=== PATIENT | male | born 1985 | race Two or more races ===

== ENCOUNTER 2016-12-23 09:57 | Emergency (ER) | payer OTHER ==
[2016-12-23] MEDS ORDERED: SODIUM CHLORIDE 0.9% 500 ML IV STA (10:31)
[2016-12-23] MEDS ORDERED: ONDANSETRON 4 MG/2 ML VIAL IVP STA (10:31)
[2016-12-23] MEDS ORDERED: DICYCLOMINE 10 MG/ML 2 ML AMP IM STA (10:31)
[2016-12-23] MEDS ORDERED: FAMOTIDINE 20 MG/2 ML VIAL IV STA (10:32)
--- NOTE | 2016-12-23 10:35 | ED ---
General Adult HPI - General Chief complaint: Abdominal Pain Stated complaint: abdominal pain Time Seen by Provider: 12/23/16 10:18 Source: patient, RN notes reviewed Mode of arrival: ambulatory Limitations: no limitations - History of Present Illness Initial comments: Patient is a pleasant 31-year-old male presenting to the emergency department complaining of abdominal discomfort. Onset was this morning. Symptoms feel like his chronic GERD however worse. Patient did have one episode of emesis following eating today. Patient did have 2 other episodes of minimal amount of emesis. Patient has some nausea still. Patient feels slightly constipated. No fever. Discomfort is left upper abdomen. - Related Data Home Medications Medication Instructions Recorded Confirmed Dicyclomine [Bentyl] 10 mg PO TID 12/23/16 12/23/16 Famotidine [Pepcid] 40 mg PO DAILY 12/23/16 12/23/16 Ondansetron Odt [Zofran Odt] 4 mg PO Q8HR PRN 12/23/16 12/23/16 Previous Rx's Medication Instructions Recorded Famotidine [Pepcid] 20 mg PO BID #60 tablet 12/23/16 Allergies Allergy/AdvReac Type Severity Reaction Status Date / Time carbinoxamine maleate Allergy Rash/Hives Verified 12/23/16 10:25 [From [facility]] pseudoephedrine HCl Allergy Rash/Hives Verified 12/23/16 10:25 [From [facility]] Review of Systems ROS Statement: Those systems with pertinent positive or pertinent negative responses have been documented in the HPI. ROS Other: All systems not noted in ROS Statement are negative. Constitutional: Denies: fever, chills Eyes: Denies: eye pain ENT: Denies: ear pain Respiratory: Denies: cough Cardiovascular: Denies: chest pain Endocrine: Denies: fatigue Gastrointestinal: Reports: abdominal pain, nausea, vomiting, constipation. Denies: diarrhea Genitourinary: Denies: dysuria Musculoskeletal: Denies: back pain Skin: Denies: rash Neurological: Denies: weakness Past Medical History Past Medical History: GERD/Reflux, Musculoskeletal Disorder Additional Past Medical History / Comment(s): LT KNEE GIVES OUT AT TIMES- NO SPECIFIC INJURY History of Any Multi-Drug Resistant Organisms: None Reported Past Surgical History: No Surgical Hx Reported Past Anesthesia/Blood Transfusion Reactions: No Reported Reaction Additional Past Anesthesia/Blood Transfusion Reaction / Comment(s): PT HAS NEVER HAD SURGERY Past Psychological History: ADD/ADHD, Anxiety Smoking Status: Current some day smoker Past Alcohol Use History: None Reported Past Drug Use History: Marijuana - Past Family History Mother Family Medical History: Cancer Additional Family Medical History / Comment(s): BREAST,CERVICAL & COLON CA Father Family Medical History: Hypertension Additional Family Medical History / Comment(s): HYDROCEPHALIS,SEIZURE DISORDER, ADRENOLEUKODYSTROPHY General Exam Limitations: no limitations General appearance: alert, in no apparent distress Head exam: Present: atraumatic Eye exam: Present: normal appearance, PERRL ENT exam: Present: normal oropharynx Neck exam: Present: normal inspection Respiratory exam: Present: normal lung sounds bilaterally Cardiovascular Exam: Present: regular rate, normal rhythm Expanded Peripheral pulses: 2+: Dorsalis Pedis (R), Dorsalis Pedis (L) GI/Abdominal exam: Present: soft, tenderness (Mild tenderness epigastric, left upper quadrant), normal bowel sounds. Absent: distended, guarding, rebound, rigid, pulsatile mass Extremities exam: Present: normal inspection. Absent: pedal edema, calf tenderness Neurological exam: Present: alert Psychiatric exam: Present: normal affect, normal mood Skin exam: Present: normal color Course Vital Signs 12/23/16 12/23/16 10:00 11:38 Temperature 97.7 F 97.4 F L Pulse Rate 75 5 L Respiratory 20 18 Rate Blood Pressure 131/77 126/72 O2 Sat by Pulse 99 98 Oximetry Medical Decision Making - Medical Decision Making Patient reevaluated and resting comfortably in bed. Abdomen soft and nontender. Patient is comfortable with discharge home. Patient states he already has Bentyl and Zofran at home for this. Patient states he is out of his Pepcid. - Lab Data Result diagrams: 12/23/16 10:58 12/23/16 10:58 Lab Results 12/23/16 12/23/16 12/23/16 Range/Units 10:30 10:58 10:58 WBC 14.8 H (3.8-10.6) k/uL RBC 5.15 (4.30-5.90) m/uL Hgb 16.1 (13.0-17.5) gm/dL Hct 47.6 (39.0-53.0) % MCV 92.5 (80.0-100.0) fL MCH 31.3 (25.0-35.0) pg MCHC 33.8 (31.0-37.0) g/dL RDW 12.3 (11.5-15.5) % Plt Count 303 (150-450) k/uL Neutrophils % 82 % Lymphocytes % 11 % Monocytes % 5 % Eosinophils % 1 % Basophils % 0 % Neutrophils # 12.1 H (1.3-7.7) k/uL Lymphocytes # 1.6 (1.0-4.8) k/uL Monocytes # 0.8 (0-1.0) k/uL Eosinophils # 0.1 (0-0.7) k/uL Basophils # 0.1 (0-0.2) k/uL PT (9.0-12.0) sec INR (<1.1) APTT (22.0-30.0) sec Sodium 142 (137-145) mmol/L Potassium 4.0 (3.5-5.1) mmol/L Chloride 104 (98-107) mmol/L Carbon Dioxide 28 (22-30) mmol/L Anion Gap 10 mmol/L BUN 8 L (9-20) mg/dL Creatinine 0.88 (0.66-1.25) mg/dL Est GFR (MDRD) Af Amer >60 (>60 ml/min/1.73 sqM) Est GFR (MDRD) Non-Af >60 (>60 ml/min/1.73 sqM) Glucose 118 H (74-99) mg/dL Calcium 9.8 (8.4-10.2) mg/dL Total Bilirubin 0.8 (0.2-1.3) mg/dL AST 24 (17-59) U/L ALT 21 (21-72) U/L Alkaline Phosphatase 79 (38-126) U/L Total Protein 7.5 (6.3-8.2) g/dL Albumin 4.7 (3.5-5.0) g/dL Amylase 44 (30-110) U/L Lipase 55 (23-300) U/L Urine Color Yellow Urine Appearance Clear (Clear) Urine pH 7.0 (5.0-8.0) Ur Specific [place] 1.010 (1.001-1.035) Urine Protein Negative (Negative) Urine Glucose (UA) Negative (Negative) Urine Ketones Negative (Negative) Urine Blood Negative (Negative) Urine Nitrite Negative (Negative) Urine Bilirubin Negative (Negative) Urine Urobilinogen 2.0 (<2.0) mg/dL Ur Leukocyte Esterase Negative (Negative) 12/23/16 Range/Units 10:58 WBC (3.8-10.6) k/uL RBC (4.30-5.90) m/uL Hgb (13.0-17.5) gm/dL Hct (39.0-53.0) % MCV (80.0-100.0) fL MCH (25.0-35.0) pg MCHC (31.0-37.0) g/dL RDW (11.5-15.5) % Plt Count (150-450) k/uL Neutrophils % % Lymphocytes % % Monocytes % % Eosinophils % % Basophils % % Neutrophils # (1.3-7.7) k/uL Lymphocytes # (1.0-4.8) k/uL Monocytes # (0-1.0) k/uL Eosinophils # (0-0.7) k/uL Basophils # (0-0.2) k/uL PT 11.0 (9.0-12.0) sec INR 1.1 (<1.1) APTT 24.9 (22.0-30.0) sec Sodium (137-145) mmol/L Potassium (3.5-5.1) mmol/L Chloride (98-107) mmol/L Carbon Dioxide (22-30) mmol/L Anion Gap mmol/L BUN (9-20) mg/dL Creatinine (0.66-1.25) mg/dL Est GFR (MDRD) Af Amer (>60 ml/min/1.73 sqM) Est GFR (MDRD) Non-Af (>60 ml/min/1.73 sqM) Glucose (74-99) mg/dL Calcium (8.4-10.2) mg/dL Total Bilirubin (0.2-1.3) mg/dL AST (17-59) U/L ALT (21-72) U/L Alkaline Phosphatase (38-126) U/L Total Protein (6.3-8.2) g/dL Albumin (3.5-5.0) g/dL Amylase (30-110) U/L Lipase (23-300) U/L Urine Color Urine Appearance (Clear) Urine pH (5.0-8.0) Ur Specific [place] (1.001-1.035) Urine Protein (Negative) Urine Glucose (UA) (Negative) Urine Ketones (Negative) Urine Blood (Negative) Urine Nitrite (Negative) Urine Bilirubin (Negative) Urine Urobilinogen (<2.0) mg/dL Ur Leukocyte Esterase (Negative) - Radiology Data Radiology results: image reviewed (Abdominal x-ray shows no acute process.) Disposition Clinical Impression: Abdominal pain Disposition: HOME SELF-CARE Condition: Stable Instructions: Abdominal Pain (ED) Additional Instructions: Please follow-up with your doctor in the next day or 2 for recheck. Consider gastroenterology follow-up. Number provided. Return for increased pain, fevers , uncontrolled vomiting, worsening symptoms or other concerns. Prescriptions: Famotidine [Pepcid] 20 mg PO BID #60 tablet Referrals: Emery Trinidad Jr, DO [Primary Care Provider] - 1-2 days Alexander Stephens MD [STAFF PHYSICIAN] - 1-2 days Time of Disposition: 12:33
[2016-12-23 10:48] LABS: Appearance,Urine Clear (Clear); Bilirubin,Urine Negative (Negative); Glucose,Urine (UA) Negative (Negative); Ketones,Urine Negative (Negative); Leukocyte Esterase,Urine Negative (Negative); Nitrite,Urine Negative (Negative); Protein,Urine Negative (Negative); UA Billing (MACRO vs. MICRO) CHEM
[2016-12-23 11:09] LABS: Basophils # (A) 0.1 k/uL (0-0.2); Basophils % (A) 0 %; CH 30.7; CHCM 33.3; Eosinophils # (A) 0.1 k/uL (0-0.7); Eosinophils % (A) 1 %; HCT 47.6 % (39.0-53.0); HDW 2.14; HGB 16.1 gm/dL (13.0-17.5); Luc # (Auto) 0.12; Luc % (Auto) 1; Lymphocytes # (A) 1.6 k/uL (1.0-4.8); Lymphocytes % (A) 11 %; MCH 31.3 pg (25.0-35.0); MCHC 33.8 g/dL (31.0-37.0); MCV 92.5 fL (80.0-100.0); Mean Platelet Volume 6.3; Monocytes # (A) 0.8 k/uL (0-1.0); Monocytes % (A) 5 %; Neutrophils # (A) 12.1 k/uL (1.3-7.7); Neutrophils % (A) 82 %; RBC 5.15 m/uL (4.30-5.90); RDW 12.3 % (11.5-15.5); WBC 14.8 k/uL (3.8-10.6); WBC (Perox) 14.47
[2016-12-23 11:18] LABS: INR 1.1 (<1.1); Partial Thromboplastin Time 24.9 sec (22.0-30.0)
[2016-12-23 11:23] LABS: ALT 21 U/L (21-72); AST 24 U/L (17-59); Alkaline Phosphatase 79 U/L (38-126); Amylase 44 U/L (30-110); Anion Gap 10 mmol/L; Blood Urea Nitrogen 8 mg/dL (9-20); Calcium 9.8 mg/dL (8.4-10.2); Carbon Dioxide 28 mmol/L (22-30); Chloride 104 mmol/L (98-107); Glucose 118 mg/dL (74-99); Non-African American GFR(MDRD) >60 (>60 ml/min/1.73 sqM); Sodium 142 mmol/L (137-145); Total Bilirubin 0.8 mg/dL (0.2-1.3); Total Protein 7.5 g/dL (6.3-8.2)
[2016-12-23 11:40] VITALS: TEMP 97.4
--- NOTE | 2016-12-23 12:08 | XR ---
EXAMINATION TYPE: XR KUB , 2 VIEWS DATE OF EXAM ORDERED: 12/23/2016 HISTORY: abdominal pain. COMPARISON: None. FINDINGS: Lung bases are clear. Within the abdomen, the abdominal gas pattern is within normal limits. There is no evidence of obstru ction or free air. No unusual calcifications are seen. IMPRESSION: NORMAL ABDOMEN.
[2016-12-23 15:48] VITALS: BP 129/71; PULSE 64; RESP 16
== END 2016-12-23 12:45 | disposition home or self-care (01) ==
LOC: EC 09:57
DX: R10.9 Unspecified abdominal pain (principal); R11.2 Nausea with vomiting, unspecified; K59.00 Constipation, unspecified; K21.9 Gastro-esophageal reflux disease without esophagitis; F17.200 Nicotine dependence, unspecified, uncomplicated; Z79.899 Other long term (current) drug therapy; Z88.8 Allergy status to other drugs, medicaments and biological substances
CPT/HCPCS: 36415; 80053; 82150; 83690; 85025; 85610; 85730; 81003; 74000; 99284; 96374; 96375; 96361; 96372; J0500; J2405

== ENCOUNTER 2017-03-08 10:45 | Emergency (ER) | payer OTHER ==
--- NOTE | 2017-03-08 11:42 | ED ---
General Adult HPI - General Chief complaint: Chest Pain Stated complaint: chest pain, Hx pleurisy and anxiety Time Seen by Provider: 03/08/17 11:06 Source: patient, RN notes reviewed Mode of arrival: wheelchair Limitations: no limitations - History of Present Illness Initial comments: 31-year-old male presents emergency department with a chief complaint of chest pain upon coughing. He's had a cough was diagnosed with costochondritis by his doctor a few days ago. Patient states he continues pain and he points to his clavicle area states when he coughs hurts right there. It is tender to touch. Patient denies any fever chills. Patient states when he took his pills today he did have one episode of vomiting. Patient denies any abdominal pain. Patient was concerned due to the fact that he just does not feel like he is getting much better so he thought that he should be seen. Patient denies any recent fever, chills, shortness of breath, back pain, abdominal pain, nausea, numbness or tingling, dysuria or hematuria, constipation or diarrhea, headaches or visual changes, or any other current symptoms. - Related Data Home Medications Medication Instructions Recorded Confirmed Ondansetron Odt [Zofran Odt] 4 mg PO Q8HR PRN 12/23/16 03/08/17 Albuterol Inhaler [Ventolin Hfa 2 puff INHALATION RT-Q6H PRN 03/08/17 03/08/17 Inhaler] Amoxic-Pot Clav 875-125Mg 1 tab PO BID 03/08/17 03/08/17 [Augmentin 875-125] Hyoscyamine Sulfate [Hyoscyamine 0.125 mg SUBLINGUAL DAILY 03/08/17 03/08/17 Sulfate SL] Naproxen Sodium [Anaprox DS] 550 mg PO BID 03/08/17 03/08/17 Previous Rx's Medication Instructions Recorded Famotidine [Pepcid] 20 mg PO BID #60 tablet 12/23/16 Allergies Allergy/AdvReac Type Severity Reaction Status Date / Time carbinoxamine maleate Allergy Rash/Hives Verified 03/08/17 11:34 [From [facility]] pseudoephedrine HCl Allergy Rash/Hives Verified 03/08/17 11:34 [From [facility]] Review of Systems ROS Statement: Those systems with pertinent positive or pertinent negative responses have been documented in the HPI. ROS Other: All systems not noted in ROS Statement are negative. Past Medical History Past Medical History: GERD/Reflux, Musculoskeletal Disorder Additional Past Medical History / Comment(s): LT KNEE GIVES OUT AT TIMES- NO SPECIFIC INJURY History of Any Multi-Drug Resistant Organisms: None Reported Past Surgical History: No Surgical Hx Reported Past Anesthesia/Blood Transfusion Reactions: No Reported Reaction Additional Past Anesthesia/Blood Transfusion Reaction / Comment(s): PT HAS NEVER HAD SURGERY Past Psychological History: ADD/ADHD, Anxiety Smoking Status: Current some day smoker Past Alcohol Use History: None Reported Past Drug Use History: Marijuana - Past Family History Mother Family Medical History: Cancer Additional Family Medical History / Comment(s): BREAST,CERVICAL & COLON CA Father Family Medical History: Hypertension Additional Family Medical History / Comment(s): HYDROCEPHALIS,SEIZURE DISORDER, ADRENOLEUKODYSTROPHY General Exam - General Exam Comments Initial Comments: General: The patient is awake and alert, in no distress, and does not appear acutely ill. Eye: Pupils are equal. Ears, nose, mouth and throat: There are moist mucous membranes and no oral lesions. Neck: The neck is supple, there is no tenderness. Cardiovascular: There is a regular rate and rhythm. No murmur, rub or gallop is appreciated. Respiratory: Lungs are clear to auscultation, respirations are non-labored, breath sounds are equal. No wheezes, stridor, rales, or rhonchi. Patient appears to have tenderness palpation to the upper bilateral chest areas Gastrointestinal: Soft, non-distended, non-tender abdomen without masses or organomegaly noted. There is no rebound or guarding present. No CVA tenderness. Bowel sounds are unremarkable. Back: There is no tenderness to palpation in the midline. There is no obvious deformity. No rashes noted. Musculoskeletal: Normal ROM, no tenderness, There is no pedal edema. There is no calf tenderness or swelling. Sensation intact. Pulses equal bilaterally 2+. Neurological: CN II-XII intact, There are no obvious motor or sensory deficits. Coordination appears grossly intact. Speech is normal. Skin: Skin is warm and dry and no rashes or lesions are noted. Psychiatric: Cooperative, appropriate mood & affect, normal judgment. Limitations: no limitations Course Vital Signs 03/08/17 11:03 Temperature 97.5 F L Pulse Rate 81 Respiratory 18 Rate Blood Pressure 131/76 O2 Sat by Pulse 100 Oximetry EKG Findings - EKG Comments: EKG Findings:: normal sinus rhythm left posterior fascicular block 68 bpm, normal axis, no atopy, no S-T depressions or elevations, Medical Decision Making - Medical Decision Making 31-year-old male presents for appears to be costochondritis along with upper respiratory infection. Patient is here and negative. We discussed continuing the Floxin. We discussed ice to the area. We discussed return precautions and follow-up. Patient stated he understood and is in agreement with plan. All questions have been answered. - Radiology Data Radiology results: report reviewed, image reviewed Disposition Clinical Impression: Costochondral chest pain, Upper respiratory infection Disposition: HOME SELF-CARE Condition: Stable Instructions: Costochondritis (ED) Additional Instructions: Please use medication as discussed. Please follow up with family doctor if symptoms have not improved over the next two days. Please return to the emergency room if your symptoms increase or worsen or for any other concerns. Referrals: Emery Trinidad Jr, DO [Primary Care Provider] - 1-2 days Time of Disposition: 12:17
--- NOTE | 2017-03-08 12:05 | XR ---
EXAMINATION TYPE: XR chest 2V DATE OF EXAM: 03/08/2017 COMPARISON: NONE HISTORY: Chest pain. TECHNIQUE: Frontal and lateral views of the chest are obtained. FINDINGS: There is no focal air space opacity, pleural effusion, or pneumothorax seen. The cardiac silhouette size is within normal limits. The osseous structures are intact. IMPRESSION: No acute process identified.
[2017-03-08 12:33] VITALS: BP 126/76; PULSE 71; RESP 17; TEMP 99
== END 2017-03-08 12:45 | disposition home or self-care (01) ==
LOC: EC 10:45
DX: R07.1 Chest pain on breathing (principal); J06.9 Acute upper respiratory infection, unspecified; R11.10 Vomiting, unspecified; F17.200 Nicotine dependence, unspecified, uncomplicated; Z79.1 Long term (current) use of non-steroidal anti-inflammatories (NSAID); Z79.899 Other long term (current) drug therapy; Z88.8 Allergy status to other drugs, medicaments and biological substances
CPT/HCPCS: 71020; 93005; 99285

== ENCOUNTER → 2017-04-24 | Outpatient (CLI) | payer OTHER ==
--- NOTE | 2017-04-24 14:08 | XR ---
EXAMINATION TYPE: XR scapula LT, XR AC joint BILAT, XR shoulder complete LT DATE OF EXAM: 04/24/2017 CLINICAL HISTORY: Left shoulder pain and scapular pain after fall. TECHNIQUE: Three views of the left shoulder are obtained. COMPARISON: None. FINDINGS: There is no acute fracture/dislocation evident in the left shoulder. The acromioclavicula r and glenohumeral joint spaces appear within normal limits. The visualized ribs are intact and unre markable. Scapular cortical borders are well maintained with no fracture line identified. Visualized ribs are intact with no displaced fracture. No pneumothorax and the visualized left lung apex. IMPRESSION: There is no acute fracture or dislocation in the left shoulder or scapula.
== END | disposition home or self-care (01) ==
LOC: RADXRMAIN 12:29
PROVIDERS: ATTEND Family Medicine
DX: S40.012A Contusion of left shoulder, initial encounter (principal)
CPT/HCPCS: 73050

== ENCOUNTER → 2017-05-16 | Outpatient (CLI) | payer OTHER ==
--- NOTE | 2017-05-16 08:58 | US ---
EXAMINATION TYPE: US abdomen complete DATE OF EXAM: 05/16/2017 COMPARISON: NONE CLINICAL HISTORY: R10.11 RUQ ABD PAIN. RUQ pain EXAM MEASUREMENTS: Liver Length: 16.1 cm Gallbladder Wall: 0.3 cm CBD: 0.4 cm Spleen: 10.0 cm Right Kidney: 11.4 x 4.2 x 5.3 cm Left Kidney: 11.1 x 6.0 x 5.2 cm Pancreas: limited evaluation due to overlying bowel content Liver: wnl Gallbladder: no evidence of stones Evidence for sonographic Azul's sign: no CBD: wnl Spleen: wnl Right Kidney: no evidence of hydronephrosis or mass Left Kidney: no evidence of hydronephrosis or mass Upper IVC: wnl Abd Aorta: wnl The liver is homogenous. The intrahepatic portion of the IVC and proximal abdominal aorta are within normal limits. There is no evidence of cholelithiasis. Common bile duct is unremarkable. The visu alized portions of the pancreas are homogenous. The spleen is unremarkable. Kidneys are symmetric a nd free of hydronephrosis. No renal lesions are seen. IMPRESSION: No distinct abnormality seen.
== END | disposition home or self-care (01) ==
LOC: RADUSWWP 08:05
PROVIDERS: ATTEND Family Medicine
DX: R10.10 Upper abdominal pain, unspecified (principal)
CPT/HCPCS: 76700

== ENCOUNTER 2018-02-03 07:02 | Emergency (ER) | payer OTHER ==
[2018-02-03 07:08] VITALS: BP 139/97; PULSE 68; RESP 18; TEMP 97.7
[2018-02-03] MEDS ORDERED: ONDANSETRON 4 MG TAB PO STA (07:39)
[2018-02-03] MEDS ORDERED: DEXAMETHASONE SOD PHOSPHATE 10 MG/ML 1 ML VIAL IM STA (07:39)
[2018-02-03] MEDS ORDERED: AMOXIC-POT CLAV 875-125MG 1 EACH TAB PO STA (07:39)
--- NOTE | 2018-02-03 07:41 | ED ---
General Adult HPI - General Chief complaint: Recheck/Abnormal Lab/Rx Stated complaint: chest pain, ear pain Time Seen by Provider: 02/03/18 07:12 Source: patient, RN notes reviewed, old records reviewed Mode of arrival: wheelchair Limitations: no limitations - History of Present Illness Initial comments: This is a 32-year-old male the ER for evaluation. Patient presents today for evaluation regarding multiple nonspecific complaints. No known sick contacts no travel history no medical history takes no medications. Patient's clinical left ear. Cough congestion sore throat and occasional shortness of breath, symptoms 3-5 days. No modifying factors for symptoms despite [id number] therapy - Related Data Home Medications Medication Instructions Recorded Confirmed Ondansetron Odt [Zofran Odt] 4 mg PO Q8HR PRN 12/23/16 06/06/17 Hyoscyamine Sulfate [Hyoscyamine 0.125 mg SUBLINGUAL Q4H PRN 03/08/17 06/06/17 Sulfate SL] Famotidine [Pepcid] 20 mg PO DAILY 06/06/17 06/06/17 Previous Rx's Medication Instructions Recorded Amoxicillin 500 mg PO Q8H #30 capsule 06/06/17 Amoxic-Pot Clav 875-125Mg 1 tab PO Q12HR #20 tablet 02/03/18 [Augmentin 875-125] Ondansetron Odt [Zofran ODT] 4 mg PO Q8HR PRN #30 tab 02/03/18 Allergies Allergy/AdvReac Type Severity Reaction Status Date / Time carbinoxamine maleate Allergy Rash/Hives Verified 02/03/18 07:06 [From [facility]] pseudoephedrine HCl Allergy Rash/Hives Verified 02/03/18 07:06 [From [facility]] Review of Systems ROS Statement: Those systems with pertinent positive or pertinent negative responses have been documented in the HPI. ROS Other: All systems not noted in ROS Statement are negative. Past Medical History Past Medical History: GERD/Reflux, Musculoskeletal Disorder Additional Past Medical History / Comment(s): LT KNEE GIVES OUT AT TIMES- NO SPECIFIC INJURY carpel tunnel and ibs History of Any Multi-Drug Resistant Organisms: None Reported Past Surgical History: Hernia Repair, Orthopedic Surgery Additional Past Surgical History / Comment(s): colonscopy pilonial cyst Past Anesthesia/Blood Transfusion Reactions: No Reported Reaction Additional Past Anesthesia/Blood Transfusion Reaction / Comment(s): PT HAS NEVER HAD SURGERY Past Psychological History: ADD/ADHD, Anxiety Smoking Status: Current every day smoker Past Alcohol Use History: None Reported Past Drug Use History: Marijuana - Past Family History Mother Family Medical History: Cancer Additional Family Medical History / Comment(s): BREAST,CERVICAL & COLON CA Father Family Medical History: Hypertension Additional Family Medical History / Comment(s): HYDROCEPHALIS,SEIZURE DISORDER, ADRENOLEUKODYSTROPHY General Exam Limitations: no limitations General appearance: alert, in no apparent distress Head exam: Present: atraumatic, normocephalic, normal inspection Eye exam: Present: normal appearance, PERRL, EOMI. Absent: scleral icterus, conjunctival injection, periorbital swelling ENT exam: Present: normal exam, mucous membranes moist Neck exam: Present: normal inspection. Absent: tenderness, meningismus, lymphadenopathy Respiratory exam: Present: normal lung sounds bilaterally. Absent: respiratory distress, wheezes, rales, rhonchi, stridor Cardiovascular Exam: Present: regular rate, normal rhythm, normal heart sounds. Absent: systolic murmur, diastolic murmur, rubs, gallop, clicks GI/Abdominal exam: Present: soft, normal bowel sounds. Absent: distended, tenderness, guarding, rebound, rigid Extremities exam: Present: normal inspection, full ROM, normal capillary refill. Absent: tenderness, pedal edema, joint swelling, calf tenderness Back exam: Present: normal inspection Neurological exam: Present: alert, oriented X3, CN II-XII intact Psychiatric exam: Present: normal affect, normal mood Skin exam: Present: warm, dry, intact, normal color. Absent: rash Course Vital Signs 02/03/18 07:06 Temperature 97.7 F Pulse Rate 68 Respiratory 18 Rate Blood Pressure 139/97 O2 Sat by Pulse 100 Oximetry Medical Decision Making - Medical Decision Making The 32 male with multiple nonspecific complaints. No organic cause found. Patient will be discharged home URI Disposition Clinical Impression: Upper respiratory infection, Otalgia, left ear, Viral syndrome Disposition: HOME SELF-CARE Condition: Good Instructions: Upper Respiratory Infection (ED), Viral Syndrome (ED) Prescriptions: Amoxic-Pot Clav 875-125Mg [Augmentin 875-125] 1 tab PO Q12HR #20 tablet Ondansetron Odt [Zofran ODT] 4 mg PO Q8HR PRN #30 tab PRN Reason: nausea/vomiting Is patient prescribed a controlled substance at d/c from ED?: No Referrals: Emery Trinidad Jr, [Primary Care Provider] - 1-2 days
== END 2018-02-03 08:01 | disposition home or self-care (01) ==
LOC: EC 07:02
DX: J06.9 Acute upper respiratory infection, unspecified (principal); H92.02 Otalgia, left ear; R06.02 Shortness of breath; K21.9 Gastro-esophageal reflux disease without esophagitis; F17.200 Nicotine dependence, unspecified, uncomplicated; Z88.8 Allergy status to other drugs, medicaments and biological substances; Z79.899 Other long term (current) drug therapy
CPT/HCPCS: 99285; 96372; J1100

== ENCOUNTER → 2018-02-13 | Outpatient (CLI) | payer OTHER ==
--- NOTE | 2018-02-13 15:02 | NM ---
EXAMINATION TYPE: NM hepatobiliary w EF DATE OF EXAM: 02/13/2018 COMPARISON: NONE INDICATION: Right upper quadrant pain TECHNIQUE: After the intravenous administration of 5.43 mCi Tc 99m Mebrofenin hepatobiliary scintigra phy is performed. Images were obtained immediately post injection. FINDINGS: There is prompt uptake and excretion of radiotracer by the liver. Extrahepatic ducts are identified at 5 minutes. The gallbladder is visualized within 5 minutes. Small bowel activity is noted within 35 minutes. At one hour 8 ounces of oral ensure plus is given to mimic CCK and gallbladder ejection fraction is c alculated at 70 %, which is in the normal range. (Normal >35% and <80%.). IMPRESSION: 1. Normal hepatobiliary scan
== END | disposition home or self-care (01) ==
LOC: RADNMMAIN 12:36
PROVIDERS: ATTEND Family Medicine
DX: R10.11 Right upper quadrant pain (principal); R11.0 Nausea; Z88.8 Allergy status to other drugs, medicaments and biological substances
CPT/HCPCS: 78226; A9537

== ENCOUNTER 2018-04-09 09:17 | Emergency (ER) | payer OTHER ==
[2018-04-09 09:31] VITALS: TEMP 98.5
[2018-04-09] MEDS ORDERED: SODIUM CHLORIDE 0.9% 1,000 ML IV STA (10:09)
[2018-04-09] MEDS ORDERED: KETOROLAC 30 MG/ML 1 ML VIAL IVP STA (10:09)
--- NOTE | 2018-04-09 10:14 | ED ---
General Adult HPI - General Chief complaint: Chest Pain Stated complaint: chest/abd pain Time Seen by Provider: 04/09/18 09:57 Source: patient, RN notes reviewed Mode of arrival: ambulatory Limitations: no limitations - History of Present Illness Initial comments: Patient is a 32-year-old male presented to the emergency room today with multiple complaints. Patient has not to chest pain and some radiation to the left hand over the last 3 days. Patient states that he is having some numbness tingling sensation back of the left biceps and down to the hand. Patient does admit has pain to the left side of the chest wall that comes and goes. He denies specifically makes it worse. He has not that he's had some cough congestion at times her cough and has been worse. Patient denies any sputum production. He does admit that his had a sore throat. Also missed some right- sided abdominal pain. He admits to nausea and vomiting. He takes Zofran this morning which made him feel better. Patient denies any other complaints. Patient denies any recent shortness of breath, back pain, numbness or tingling , dysuria or hematuria, constipation or diarrhea, headaches or visual changes, or any other complaints. - Related Data Home Medications Medication Instructions Recorded Confirmed Bentyl (Unknown Dose) 1 tab PO TID 04/09/18 04/09/18 Naproxen Sodium [Aleve] 220 mg PO BID PRN 04/09/18 04/09/18 Ondansetron HCl [Zofran] 8 mg PO Q8H PRN 04/09/18 04/09/18 Phenylephrine/Dm/Acetaminop/GG 2 tab PO Q6HR PRN 04/09/18 04/09/18 [Tylenol Cold-Flu Severe Caplet] Previous Rx's Medication Instructions Recorded Benzonatate [Tessalon Perles] 100 mg PO TID PRN #20 capsule 04/09/18 Ibuprofen [Motrin] 600 mg PO Q6HR PRN #40 day 04/09/18 Allergies Allergy/AdvReac Type Severity Reaction Status Date / Time amoxicillin [From Augmentin] Allergy Unknown Verified 04/09/18 09:55 carbinoxamine maleate Allergy Rash/Hives Verified 04/09/18 09:55 [From Rondec] clavulanic acid Allergy Unknown Verified 04/09/18 09:55 [From Augmentin] pseudoephedrine HCl Allergy Rash/Hives Verified 04/09/18 09:55 [From Rondec] Review of Systems ROS Statement: Those systems with pertinent positive or pertinent negative responses have been documented in the HPI. ROS Other: All systems not noted in ROS Statement are negative. Past Medical History Past Medical History: GERD/Reflux, Musculoskeletal Disorder Additional Past Medical History / Comment(s): LT KNEE GIVES OUT AT TIMES- NO SPECIFIC INJURY carpel tunnel and ibs History of Any Multi-Drug Resistant Organisms: None Reported Past Surgical History: Hernia Repair, Orthopedic Surgery Additional Past Surgical History / Comment(s): colonscopy pilonial cyst Past Anesthesia/Blood Transfusion Reactions: No Reported Reaction Additional Past Anesthesia/Blood Transfusion Reaction / Comment(s): PT HAS NEVER HAD SURGERY Past Psychological History: ADD/ADHD, Anxiety Smoking Status: Current every day smoker Past Alcohol Use History: None Reported Past Drug Use History: Marijuana - Past Family History Mother Family Medical History: Cancer Additional Family Medical History / Comment(s): BREAST,CERVICAL & COLON CA Father Family Medical History: Hypertension Additional Family Medical History / Comment(s): HYDROCEPHALIS,SEIZURE DISORDER, ADRENOLEUKODYSTROPHY General Exam - General Exam Comments Initial Comments: General: The patient is awake and alert, in no distress, and does not appear acutely ill. Eye: Pupils are equal, round and reactive to light. Extra-ocular movements are intact. No nystagmus. There is normal conjunctiva bilaterally. No signs of icterus. Ears, nose, mouth and throat: There are moist mucous membranes and no oral lesions. Neck: The neck is supple, there is no tenderness or JVD. Cardiovascular: There is a regular rate and rhythm. No murmur, rub or gallop is appreciated. Respiratory: Lungs are clear to auscultation, respirations are non-labored, breath sounds are equal. No wheezes, stridor, rales, or rhonchi. Gastrointestinal: Abdomen soft on palpation. Patient does have mild tenderness right upper quadrant. No rebound, guarding or CVA tenderness. Musculoskeletal: Normal ROM, no tenderness. Sensation intact. Strength 5/5. Pulses equal bilaterally 2+. Neurological: A&O x 3. CN II-XII intact, There are no obvious motor or sensory deficits. Coordination appears grossly intact. Speech is normal. Skin: Skin is warm and dry and no rashes or lesions are noted. Psychiatric: Cooperative, appropriate mood & affect, normal judgment. Limitations: no limitations Course Vital Signs 04/09/18 09:25 Temperature 98.5 F Pulse Rate 68 Respiratory 18 Rate Blood Pressure 146/90 O2 Sat by Pulse 98 Oximetry EKG Findings - EKG Comments: EKG Findings:: EKG performed at 0941: Shows normal sinus rhythm at 79 beats per minute. [place] interval 146. QRS 86. QT/QTc is 396/454. No acute ST changes. Medical Decision Making - Medical Decision Making Patient reexamined at this time shows no signs of distress. He does admit to improvement after Toradol here in emergency room. He says x-rays unremarkable. Patient's labs been reviewed. EKG shows normal sinus rhythm. Patient has had cough congestion that she felt to be the cause for his chest pain as it is worse when he coughs. Patient at this time is advised to follow-up family doctor the next 2 days return to emergency room symptoms increase or worsen. Advised continue anti-inflammatories. Also be given Tessalon Perles for his cough. - Lab Data Result diagrams: 04/09/18 09:45 04/09/18 09:45 Lab Results 04/09/18 04/09/18 04/09/18 Range/Units 09:45 09:45 09:45 WBC 12.1 H (3.8-10.6) k/uL RBC 5.25 (4.30-5.90) m/uL Hgb 16.0 (13.0-17.5) gm/dL Hct 49.3 (39.0-53.0) % MCV 93.9 (80.0-100.0) fL MCH 30.5 (25.0-35.0) pg MCHC 32.5 (31.0-37.0) g/dL RDW 12.7 (11.5-15.5) % Plt Count 341 (150-450) k/uL Neutrophils % 77 % Lymphocytes % 16 % Monocytes % 5 % Eosinophils % 1 % Basophils % 1 % Neutrophils # 9.3 H (1.3-7.7) k/uL Lymphocytes # 1.9 (1.0-4.8) k/uL Monocytes # 0.6 (0-1.0) k/uL Eosinophils # 0.1 (0-0.7) k/uL Basophils # 0.1 (0-0.2) k/uL Sodium 141 (137-145) mmol/L Potassium 4.2 (3.5-5.1) mmol/L Chloride 108 H (98-107) mmol/L Carbon Dioxide 25 (22-30) mmol/L Anion Gap 8 mmol/L BUN 7 L (9-20) mg/dL Creatinine 0.82 (0.66-1.25) mg/dL Est GFR (CKD-EPI)AfAm >90 (>60 ml/min/1.73 sqM) Est GFR (CKD-EPI)NonAf >90 (>60 ml/min/1.73 sqM) Glucose 105 H (74-99) mg/dL Calcium 9.4 (8.4-10.2) mg/dL Total Bilirubin 0.4 (0.2-1.3) mg/dL AST 35 (17-59) U/L ALT 40 (21-72) U/L Alkaline Phosphatase 64 (38-126) U/L Total Creatine Kinase 71 (55-170) U/L CK-MB (CK-2) 0.3 (0.0-2.4) ng/mL CK-MB (CK-2) Rel Index 0.4 Troponin I <0.012 (0.000-0.034) ng/mL Total Protein 7.2 (6.3-8.2) g/dL Albumin 4.4 (3.5-5.0) g/dL Amylase 59 (30-110) U/L Lipase 63 (23-300) U/L Urine Color Urine Appearance (Clear) Urine pH (5.0-8.0) Ur Specific [place] (1.001-1.035) Urine Protein (Negative) Urine Glucose (UA) (Negative) Urine Ketones (Negative) Urine Blood (Negative) Urine Nitrite (Negative) Urine Bilirubin (Negative) Urine Urobilinogen (<2.0) mg/dL Ur Leukocyte Esterase (Negative) Heterophile Antibody (Negative) Group A Strep Rapid (Negative) 04/09/18 04/09/18 04/09/18 Range/Units 09:45 12:10 12:11 WBC (3.8-10.6) k/uL RBC (4.30-5.90) m/uL Hgb (13.0-17.5) gm/dL Hct (39.0-53.0) % MCV (80.0-100.0) fL MCH (25.0-35.0) pg MCHC (31.0-37.0) g/dL RDW (11.5-15.5) % Plt Count (150-450) k/uL Neutrophils % % Lymphocytes % % Monocytes % % Eosinophils % % Basophils % % Neutrophils # (1.3-7.7) k/uL Lymphocytes # (1.0-4.8) k/uL Monocytes # (0-1.0) k/uL Eosinophils # (0-0.7) k/uL Basophils # (0-0.2) k/uL Sodium (137-145) mmol/L Potassium (3.5-5.1) mmol/L Chloride (98-107) mmol/L Carbon Dioxide (22-30) mmol/L Anion Gap mmol/L BUN (9-20) mg/dL Creatinine (0.66-1.25) mg/dL Est GFR (CKD-EPI)AfAm (>60 ml/min/1.73 sqM) Est GFR (CKD-EPI)NonAf (>60 ml/min/1.73 sqM) Glucose (74-99) mg/dL Calcium (8.4-10.2) mg/dL Total Bilirubin (0.2-1.3) mg/dL AST (17-59) U/L ALT (21-72) U/L Alkaline Phosphatase (38-126) U/L Total Creatine Kinase (55-170) U/L CK-MB (CK-2) (0.0-2.4) ng/mL CK-MB (CK-2) Rel Index Troponin I (0.000-0.034) ng/mL Total Protein (6.3-8.2) g/dL Albumin (3.5-5.0) g/dL Amylase (30-110) U/L Lipase (23-300) U/L Urine Color Light Yellow Urine Appearance Clear (Clear) Urine pH 7.5 (5.0-8.0) Ur Specific [place] 1.003 (1.001-1.035) Urine Protein Negative (Negative) Urine Glucose (UA) Negative (Negative) Urine Ketones Negative (Negative) Urine Blood Negative (Negative) Urine Nitrite Negative (Negative) Urine Bilirubin Negative (Negative) Urine Urobilinogen <2.0 (<2.0) mg/dL Ur Leukocyte Esterase Negative (Negative) Heterophile Antibody Negative (Negative) Group A Strep Rapid Negative (Negative) Disposition Clinical Impression: Upper respiratory infection, Chest pain Disposition: HOME SELF-CARE Condition: Good Instructions: Costochondritis (ED) Additional Instructions: Please use medication as discussed. Please follow-up with family doctor in the next 2 days of symptoms have not improved. Please return to emergency room if the symptoms increase or worsen or for any other concerns. Prescriptions: Benzonatate [Tessalon Perles] 100 mg PO TID PRN #20 capsule PRN Reason: Cough Ibuprofen [Motrin] 600 mg PO Q6HR PRN #40 day PRN Reason: Pain Is patient prescribed a controlled substance at d/c from ED?: No Referrals: Emery Trinidad Jr, DO [Primary Care Provider] - 1-2 days Time of Disposition: 13:19
--- NOTE | 2018-04-09 10:34 | XR ---
EXAMINATION TYPE: XR KUB DATE OF EXAM: 04/09/2018 COMPARISON: 12/23/2016 HISTORY: Pain TECHNIQUE: One view abdominal series FINDINGS: The osseous structures are intact. The bowel gas pattern is nonspecific. Lung bases are clear. Spin a bifida occulta lumbosacral junction. IMPRESSION: 1. Nonspecific abdomen.
[2018-04-09 10:37] LABS: Basophils # (A) 0.1 k/uL (0-0.2); Basophils % (A) 1 %; Eosinophils # (A) 0.1 k/uL (0-0.7); Eosinophils % (A) 1 %; HCT 49.3 % (39.0-53.0); Lymphocytes # (A) 1.9 k/uL (1.0-4.8); Lymphocytes % (A) 16 %; MCH 30.5 pg (25.0-35.0); MCHC 32.5 g/dL (31.0-37.0); MCV 93.9 fL (80.0-100.0); Mean Platelet Volume 6.4; Monocytes # (A) 0.6 k/uL (0-1.0); Monocytes % (A) 5 %; Neutrophils # (A) 9.3 k/uL (1.3-7.7); Neutrophils % (A) 77 %; Platelet Count 341 k/uL (150-450); RBC 5.25 m/uL (4.30-5.90); RDW 12.7 % (11.5-15.5); WBC 12.1 k/uL (3.8-10.6)
--- NOTE | 2018-04-09 10:37 | XR ---
EXAMINATION TYPE: XR chest 2V DATE OF EXAM: 04/09/2018 COMPARISON: 06/06/2017 HISTORY: Chest pain TECHNIQUE: Frontal and lateral views of the chest are obtained. FINDINGS: There is no focal air space opacity, pleural effusion, or pneumothorax seen. The cardiac silhouette size is within normal limits. The osseous structures are intact. IMPRESSION: No acute cardiopulmonary process.
[2018-04-09 10:49] LABS: ALT 40 U/L (21-72); AST 35 U/L (17-59); Albumin 4.4 g/dL (3.5-5.0); Alkaline Phosphatase 64 U/L (38-126); Amylase 59 U/L (30-110); Anion Gap 8 mmol/L; Blood Urea Nitrogen 7 mg/dL (9-20); Calcium 9.4 mg/dL (8.4-10.2); Carbon Dioxide 25 mmol/L (22-30); Chloride 108 mmol/L (98-107); Glucose 105 mg/dL (74-99); Lipase 63 U/L (23-300); Potassium 4.2 mmol/L (3.5-5.1); Sodium 141 mmol/L (137-145); Total Bilirubin 0.4 mg/dL (0.2-1.3); Total Protein 7.2 g/dL (6.3-8.2)
[2018-04-09 11:05] LABS: Creatine Kinase 71 U/L (55-170)
[2018-04-09 11:18] LABS: Creatine Kinase MB 0.3 ng/mL (0.0-2.4); Troponin I <0.012 ng/mL (0.000-0.034)
[2018-04-09 12:33] LABS: Appearance,Urine Clear (Clear); Bilirubin,Urine Negative (Negative); Blood,Urine Negative (Negative); Color,Urine Light Yellow; Glucose,Urine (UA) Negative (Negative); Ketones,Urine Negative (Negative); Leukocyte Esterase,Urine Negative (Negative); Nitrite,Urine Negative (Negative); PH, Urine 7.5 (5.0-8.0); Protein,Urine Negative (Negative); Specific Gravity,Urine 1.003 (1.001-1.035); Urobilinogen,Urine <2.0 mg/dL (<2.0)
[2018-04-09 13:47] VITALS: BP 145/93; PULSE 75; RESP 8
== END 2018-04-09 13:28 | disposition home or self-care (01) ==
LOC: EC 09:17
DX: J06.9 Acute upper respiratory infection, unspecified (principal); R07.89 Other chest pain; R10.9 Unspecified abdominal pain; R11.2 Nausea with vomiting, unspecified; K21.9 Gastro-esophageal reflux disease without esophagitis; F17.200 Nicotine dependence, unspecified, uncomplicated; Z79.899 Other long term (current) drug therapy; Z88.0 Allergy status to penicillin; Z88.8 Allergy status to other drugs, medicaments and biological substances
CPT/HCPCS: 36415; 93005; 80053; 82150; 82550; 82553; 83690; 84484; 85025; 86308; 81003; 87081; 87430; 71046; 74018; 99285; 96374; 96361; J1885

== ENCOUNTER 2018-05-09 06:51 | Emergency (ER) | payer OTHER ==
[2018-05-09] MEDS ORDERED: SODIUM CHLORIDE 0.9% 500 ML 500 ML IV STA (07:40)
[2018-05-09] MEDS ORDERED: ONDANSETRON 4 MG/2 ML VIAL IVP STA (07:40)
[2018-05-09] MEDS ORDERED: KETOROLAC 30 MG/ML 1 ML VIAL IVP STA (07:40)
--- NOTE | 2018-05-09 07:45 | ED ---
General Adult HPI - General Chief complaint: Abdominal Pain Stated complaint: Abd/Back Pain Time Seen by Provider: 05/09/18 07:00 Source: patient, RN notes reviewed Mode of arrival: ambulatory Limitations: no limitations - History of Present Illness Initial comments: This is a 32-year-old male who presents emergency Department complaining of right-sided abdominal pain. Patient states his been ongoing for 2 years. Patient states he has had multiple workup was at different ERs and has been scoped from the top and the bottom. Patient states over the last month his pain is been constant and is mostly in the right flank in a little bit in the right upper quadrant. Patient states this morning however the pain got much worse she was vomiting and could not handle the pain so decided come back to emergency department. Patient has ever been to this emergency Department before but he has been to [facility] and they came around. Patient denies any fever chills. Patient denies any dysuria hematuria urinary frequency. Patient states he has a little bit of CVA tenderness on the right. Patient denies any chest pain difficult breathing shortest breath per patient denies any recent fever. Patient denies any diarrhea. - Related Data Home Medications Medication Instructions Recorded Confirmed Naproxen Sodium [Aleve] 440 mg PO BID PRN 04/09/18 05/09/18 Ondansetron HCl [Zofran] 8 mg PO Q8H PRN 04/09/18 05/09/18 Acetaminophen [Tylenol Arthritis] 650 mg PO Q12H PRN 05/09/18 05/09/18 Hyoscyamine Sulfate [Hyoscyamine 0.125 mg SL Q4H PRN 05/09/18 05/09/18 Sulfate SL] Previous Rx's Medication Instructions Recorded Ibuprofen [Motrin] 600 mg PO Q6HR PRN #20 tab 05/09/18 Allergies Allergy/AdvReac Type Severity Reaction Status Date / Time amoxicillin [From Augmentin] Allergy Unknown Verified 05/09/18 08:25 carbinoxamine maleate Allergy Rash/Hives Verified 05/09/18 08:25 [From Rondec] clavulanic acid Allergy Unknown Verified 05/09/18 08:25 [From Augmentin] pseudoephedrine HCl Allergy Rash/Hives Verified 05/09/18 08:25 [From Rondec] Review of Systems ROS Statement: Those systems with pertinent positive or pertinent negative responses have been documented in the HPI. ROS Other: All systems not noted in ROS Statement are negative. Past Medical History Past Medical History: GERD/Reflux, Musculoskeletal Disorder Additional Past Medical History / Comment(s): LT KNEE GIVES OUT AT TIMES- NO SPECIFIC INJURY carpel tunnel and ibs History of Any Multi-Drug Resistant Organisms: None Reported Past Surgical History: Hernia Repair, Orthopedic Surgery Additional Past Surgical History / Comment(s): colonscopy pilonial cyst Past Anesthesia/Blood Transfusion Reactions: No Reported Reaction Additional Past Anesthesia/Blood Transfusion Reaction / Comment(s): PT HAS NEVER HAD SURGERY Past Psychological History: ADD/ADHD, Anxiety Smoking Status: Current every day smoker Past Alcohol Use History: None Reported Past Drug Use History: Marijuana - Past Family History Mother Family Medical History: Cancer Additional Family Medical History / Comment(s): BREAST,CERVICAL & COLON CA Father Family Medical History: Hypertension Additional Family Medical History / Comment(s): HYDROCEPHALIS,SEIZURE DISORDER, ADRENOLEUKODYSTROPHY General Exam - General Exam Comments Initial Comments: GENERAL: Patient is well-developed and well-nourished. Patient is nontoxic and well- hydrated and is in mild distress. ENT: Neck is soft and supple. No significant lymphadenopathy is noted. Oropharynx is clear. Moist mucous membranes. Neck has full range of motion without eliciting any pain. EYES: The sclera were anicteric and conjunctiva were pink and moist. Extraocular movements were intact and pupils were equal round and reactive to light. Eyelids were unremarkable. PULMONARY: Unlabored respirations. Good breath sounds bilaterally. No audible rales rhonchi or wheezing was noted. CARDIOVASCULAR: There is a regular rate and rhythm without any murmurs gallops or rubs. ABDOMEN: Patient has abdominal pain and right upper quadrant to right flank area. Patient has some mild right CVA tenderness. Patient has no rebound or guarding No palpable organomegaly was noted. There is no palpable pulsatile mass. SKIN: Skin is clear with no lesions or rashes and otherwise unremarkable. NEUROLOGIC: Patient is alert and oriented x3. Cranial nerves II through XII are grossly intact. Motor and sensory are also intact. Normal speech, volume and content. Symmetrical smile. MUSCULOSKELETAL: Normal extremities with adequate strength and full range of motion. No lower extremity swelling or edema. No calf tenderness. LYMPHATICS: No significant lymphadenopathy is noted PSYCHIATRIC: Normal psychiatric evaluation. Limitations: no limitations Course Vital Signs 05/09/18 07:02 Temperature 98 F Pulse Rate 76 Respiratory 16 Rate Blood Pressure 143/82 O2 Sat by Pulse 100 Oximetry Medical Decision Making - Medical Decision Making Computed tomography scan abdomen and pelvis showed colitis in the descending colon. I will begin to reevaluate the patient patient stated the pain was mostly on the right side and it was better than it was earlier but he is noting now that movement is making it worse sitting up twisting or bending over makes the pain worse. Patient states he thinks it might be related to the fact that he was chopping wood last 2 days he may have strained side of his body which I think a prior to arrival. Patient is no longer nauseous. - Lab Data Result diagrams: 05/09/18 07:55 05/09/18 07:55 Lab Results 05/09/18 05/09/18 Range/Units 07:55 07:55 WBC 12.9 H (3.8-10.6) k/uL RBC 5.14 (4.30-5.90) m/uL Hgb 15.9 (13.0-17.5) gm/dL Hct 48.0 (39.0-53.0) % MCV 93.3 (80.0-100.0) fL MCH 31.0 (25.0-35.0) pg MCHC 33.2 (31.0-37.0) g/dL RDW 12.9 (11.5-15.5) % Plt Count 305 (150-450) k/uL Neutrophils % 77 % Lymphocytes % 14 % Monocytes % 6 % Eosinophils % 2 % Basophils % 1 % Neutrophils # 10.0 H (1.3-7.7) k/uL Lymphocytes # 1.8 (1.0-4.8) k/uL Monocytes # 0.8 (0-1.0) k/uL Eosinophils # 0.2 (0-0.7) k/uL Basophils # 0.1 (0-0.2) k/uL Sodium 141 (137-145) mmol/L Potassium 4.2 (3.5-5.1) mmol/L Chloride 107 (98-107) mmol/L Carbon Dioxide 28 (22-30) mmol/L Anion Gap 6 mmol/L BUN 7 L (9-20) mg/dL Creatinine 0.90 (0.66-1.25) mg/dL Est GFR (CKD-EPI)AfAm >90 (>60 ml/min/1.73 sqM) Est GFR (CKD-EPI)NonAf >90 (>60 ml/min/1.73 sqM) Glucose 104 H (74-99) mg/dL Calcium 9.5 (8.4-10.2) mg/dL Total Bilirubin 0.4 (0.2-1.3) mg/dL AST 25 (17-59) U/L ALT 32 (21-72) U/L Alkaline Phosphatase 72 (38-126) U/L Total Protein 6.7 (6.3-8.2) g/dL Albumin 3.9 (3.5-5.0) g/dL Amylase 56 (30-110) U/L Lipase 97 (23-300) U/L Disposition Clinical Impression: Abdominal muscle strain, Colitis, Acute vomiting Disposition: HOME SELF-CARE Condition: Good Instructions: Colitis (ED) Prescriptions: Ibuprofen [Motrin] 600 mg PO Q6HR PRN #20 tab PRN Reason: For pain Is patient prescribed a controlled substance at d/c from ED?: No Referrals: Emery Trinidad Jr, [Primary Care Provider] - 1-2 days Time of Disposition: 10:28
[2018-05-09 08:23] LABS: Basophils # (A) 0.1 k/uL (0-0.2); Basophils % (A) 1 %; Eosinophils # (A) 0.2 k/uL (0-0.7); Eosinophils % (A) 2 %; HGB 15.9 gm/dL (13.0-17.5); Lymphocytes # (A) 1.8 k/uL (1.0-4.8); Lymphocytes % (A) 14 %; MCHC 33.2 g/dL (31.0-37.0); MCV 93.3 fL (80.0-100.0); Mean Platelet Volume 6.3; Monocytes # (A) 0.8 k/uL (0-1.0); Monocytes % (A) 6 %; Neutrophils % (A) 77 %; Platelet Count 305 k/uL (150-450); RBC 5.14 m/uL (4.30-5.90); RDW 12.9 % (11.5-15.5); WBC 12.9 k/uL (3.8-10.6)
[2018-05-09 08:40] LABS: ALT 32 U/L (21-72); AST 25 U/L (17-59); Albumin 3.9 g/dL (3.5-5.0); Alkaline Phosphatase 72 U/L (38-126); Amylase 56 U/L (30-110); Anion Gap 6 mmol/L; Blood Urea Nitrogen 7 mg/dL (9-20); Calcium 9.5 mg/dL (8.4-10.2); Carbon Dioxide 28 mmol/L (22-30); Chloride 107 mmol/L (98-107); Glucose 104 mg/dL (74-99); Lipase 97 U/L (23-300); Potassium 4.2 mmol/L (3.5-5.1); Sodium 141 mmol/L (137-145); Total Bilirubin 0.4 mg/dL (0.2-1.3); Total Protein 6.7 g/dL (6.3-8.2)
--- NOTE | 2018-05-09 09:58 | CT ---
EXAMINATION TYPE: CT abdomen pelvis w con DATE OF EXAM: 05/09/2018 COMPARISON: None INDICATION: Abdominal pain DLP: 1095.10 mGycm, Automated exposure control for dose reduction was used. CONTRAST: 100 ml mL of Isovue 300. Study performed with Oral Contrast TECHNIQUE: Axial images were obtained from above the diaphragm to the pubic rami in the axial plane a t 5 mm thick sections. Reconstructed images are reviewed on the computer in the coronal plane. FINDINGS: Limited CT sections are obtained the lung bases. The lung bases are clear. CT ABDOMEN: Liver: Normal Spleen: Normal Pancreas: Normal Adrenal glands: The adrenal glands are normal. Gallbladder: Normal Kidneys: No masses are evident. No hydronephrosis is present. No cysts are present. Delayed images were obtained through the kidneys, which remain unremarkable. Aorta: Normal Inferior vena cava: Normal. CT PELVIS: Loops of bowel within the upper abdomen are unremarkable. The distal descending colon and sigmoid col on is diffusely thickened without significant adjacent inflammatory changes. Correlate for colitis. T here are scattered diverticuli within the sigmoid colon without acute diverticulitis. Studies perform ed without oral contrast limiting bowel evaluation. Appendix: Normal as visualized. Urinary bladder: Normal. Genitourinary structures: Prostate is normal. Osseous structures: No suspicious lytic or sclerotic lesions. IMPRESSIONS: 1. Appears to be a mild colitis through the distal descending colon and sigmoid colon. 2. Diverticulosis without acute diverticulitis within the sigmoid colon.
[2018-05-09 10:55] LABS: Appearance,Urine Clear (Clear); Bilirubin,Urine Negative (Negative); Blood,Urine Negative (Negative); Color,Urine Light Yellow; Glucose,Urine (UA) Negative (Negative); Ketones,Urine Negative (Negative); Leukocyte Esterase,Urine Negative (Negative); Nitrite,Urine Negative (Negative); PH, Urine 7.5 (5.0-8.0); Protein,Urine Negative (Negative); Specific Gravity,Urine 1.019 (1.001-1.035); Urobilinogen,Urine <2.0 mg/dL (<2.0)
[2018-05-09 11:09] VITALS: BP 132/77; PULSE 74; RESP 20; TEMP 98
== END 2018-05-09 11:09 | disposition home or self-care (01) ==
LOC: EC 06:51
DX: K52.9 Noninfective gastroenteritis and colitis, unspecified (principal); S39.011A Strain of muscle, fascia and tendon of abdomen, initial encounter; R11.10 Vomiting, unspecified; F17.200 Nicotine dependence, unspecified, uncomplicated; Z88.0 Allergy status to penicillin; Z88.8 Allergy status to other drugs, medicaments and biological substances; Z80.0 Family history of malignant neoplasm of digestive organs; X58.XXXA Exposure to other specified factors, initial encounter
CPT/HCPCS: 36415; 80053; 82150; 83690; 85025; 81003; 74177; 99284; 96374; 96375; J2405; J1885; Q9967

== ENCOUNTER 2018-05-20 04:17 | Emergency (ER) | payer OTHER ==
[2018-05-20 04:23] VITALS: TEMP 97.6
[2018-05-20 05:19] LABS: Basophils # (A) 0.1 k/uL (0-0.2); Basophils % (A) 1 %; Eosinophils # (A) 0.3 k/uL (0-0.7); Eosinophils % (A) 3 %; HCT 47.9 % (39.0-53.0); HGB 15.5 gm/dL (13.0-17.5); Lymphocytes # (A) 2.4 k/uL (1.0-4.8); Lymphocytes % (A) 24 %; MCH 29.9 pg (25.0-35.0); MCHC 32.3 g/dL (31.0-37.0); MCV 92.4 fL (80.0-100.0); Mean Platelet Volume 6.5; Monocytes # (A) 0.7 k/uL (0-1.0); Monocytes % (A) 7 %; Neutrophils # (A) 6.6 k/uL (1.3-7.7); Neutrophils % (A) 64 %; Platelet Count 316 k/uL (150-450); RBC 5.18 m/uL (4.30-5.90); RDW 12.8 % (11.5-15.5); WBC 10.3 k/uL (3.8-10.6)
[2018-05-20 05:23] LABS: ALT 36 U/L (21-72); AST 34 U/L (17-59); Albumin 4.2 g/dL (3.5-5.0); Alkaline Phosphatase 68 U/L (38-126); Amylase 50 U/L (30-110); Anion Gap 7 mmol/L; Blood Urea Nitrogen 7 mg/dL (9-20); Calcium 9.5 mg/dL (8.4-10.2); Carbon Dioxide 25 mmol/L (22-30); Chloride 108 mmol/L (98-107); Glucose 105 mg/dL (74-99); Lipase 81 U/L (23-300); Potassium 4.3 mmol/L (3.5-5.1); Sodium 140 mmol/L (137-145); Total Bilirubin 0.7 mg/dL (0.2-1.3); Total Protein 6.8 g/dL (6.3-8.2)
[2018-05-20] MEDS ORDERED: ONDANSETRON 4 MG/2 ML VIAL IVP STA (05:48)
[2018-05-20] MEDS ORDERED: MORPHINE SULFATE 4 MG/ML SYRINGE IV STA (06:04)
--- NOTE | 2018-05-20 06:12 | ED ---
Abdominal Pain HPI - General Chief Complaint: Nausea/Vomiting/Diarrhea Stated Complaint: Abdominal Pain Time Seen by Provider: 05/20/18 05:48 Source: patient Mode of arrival: ambulatory Limitations: no limitations - History of Present Illness MD Complaint: abdominal pain Onset/Timin -: hour(s) Location: RLQ Radiation: none Migration to: no migration Severity: severe Quality: sharp Consistency: constant Improves With: nothing Worsens With: nothing - Related Data Home Medications Medication Instructions Recorded Confirmed Ondansetron HCl [Zofran] 8 mg PO Q8H PRN 04/09/18 05/20/18 Acetaminophen [Tylenol Arthritis] 650 mg PO Q12H PRN 05/09/18 05/20/18 Hyoscyamine Sulfate [Hyoscyamine 0.125 mg SL Q4H PRN 05/09/18 05/20/18 Sulfate SL] Previous Rx's Medication Instructions Recorded Dicyclomine [Bentyl] 20 mg PO QID #15 tablet 05/20/18 Ondansetron Odt [Zofran ODT] 4 mg PO Q8HR PRN #10 tab 05/20/18 Allergies Allergy/AdvReac Type Severity Reaction Status Date / Time amoxicillin [From Augmentin] Allergy Unknown Verified 05/20/18 04:24 carbinoxamine maleate Allergy Rash/Hives Verified 05/20/18 04:24 [From Rondec] clavulanic acid Allergy Unknown Verified 05/20/18 04:24 [From Augmentin] pseudoephedrine HCl Allergy Rash/Hives Verified 05/20/18 04:24 [From Rondec] Review of Systems ROS Statement: Those systems with pertinent positive or pertinent negative responses have been documented in the HPI. ROS Other: All systems not noted in ROS Statement are negative. Past Medical History Past Medical History: GERD/Reflux, Musculoskeletal Disorder Additional Past Medical History / Comment(s): LT KNEE GIVES OUT AT TIMES- NO SPECIFIC INJURY carpel tunnel and ibs , colitis, diverticulosis History of Any Multi-Drug Resistant Organisms: None Reported Past Surgical History: Hernia Repair, Orthopedic Surgery Additional Past Surgical History / Comment(s): colonscopy pilonial cyst Past Anesthesia/Blood Transfusion Reactions: No Reported Reaction Additional Past Anesthesia/Blood Transfusion Reaction / Comment(s): PT HAS NEVER HAD SURGERY Past Psychological History: ADD/ADHD, Anxiety, Depression Smoking Status: Current every day smoker Past Alcohol Use History: None Reported Past Drug Use History: Marijuana - Past Family History Mother Family Medical History: Cancer Additional Family Medical History / Comment(s): BREAST,CERVICAL & COLON CA Father Family Medical History: Hypertension Additional Family Medical History / Comment(s): HYDROCEPHALIS,SEIZURE DISORDER, ADRENOLEUKODYSTROPHY General Exam Limitations: no limitations Course Vital Signs 05/20/18 05/20/18 04:19 07:09 Temperature 97.6 F Pulse Rate 87 85 Respiratory 16 16 Rate Blood Pressure 135/92 128/81 O2 Sat by Pulse 98 98 Oximetry Medical Decision Making - Lab Data Result diagrams: 05/20/18 04:40 05/20/18 04:40 Lab Results 05/20/18 05/20/18 05/20/18 Range/Units 04:40 04:40 07:13 WBC 10.3 (3.8-10.6) k/uL RBC 5.18 (4.30-5.90) m/uL Hgb 15.5 (13.0-17.5) gm/dL Hct 47.9 (39.0-53.0) % MCV 92.4 (80.0-100.0) fL MCH 29.9 (25.0-35.0) pg MCHC 32.3 (31.0-37.0) g/dL RDW 12.8 (11.5-15.5) % Plt Count 316 (150-450) k/uL Neutrophils % 64 % Lymphocytes % 24 % Monocytes % 7 % Eosinophils % 3 % Basophils % 1 % Neutrophils # 6.6 (1.3-7.7) k/uL Lymphocytes # 2.4 (1.0-4.8) k/uL Monocytes # 0.7 (0-1.0) k/uL Eosinophils # 0.3 (0-0.7) k/uL Basophils # 0.1 (0-0.2) k/uL Sodium 140 (137-145) mmol/L Potassium 4.3 (3.5-5.1) mmol/L Chloride 108 H (98-107) mmol/L Carbon Dioxide 25 (22-30) mmol/L Anion Gap 7 mmol/L BUN 7 L (9-20) mg/dL Creatinine 0.87 (0.66-1.25) mg/dL Est GFR (CKD-EPI)AfAm >90 (>60 ml/min/1.73 sqM) Est GFR (CKD-EPI)NonAf >90 (>60 ml/min/1.73 sqM) Glucose 105 H (74-99) mg/dL Calcium 9.5 (8.4-10.2) mg/dL Total Bilirubin 0.7 (0.2-1.3) mg/dL AST 34 (17-59) U/L ALT 36 (21-72) U/L Alkaline Phosphatase 68 (38-126) U/L Total Protein 6.8 (6.3-8.2) g/dL Albumin 4.2 (3.5-5.0) g/dL Amylase 50 (30-110) U/L Lipase 81 (23-300) U/L Urine Color Light Yellow Urine Appearance Clear (Clear) Urine pH 8.0 (5.0-8.0) Ur Specific [place] 1.004 (1.001-1.035) Urine Protein Negative (Negative) Urine Glucose (UA) Negative (Negative) Urine Ketones Negative (Negative) Urine Blood Negative (Negative) Urine Nitrite Negative (Negative) Urine Bilirubin Negative (Negative) Urine Urobilinogen <2.0 (<2.0) mg/dL Ur Leukocyte Esterase Negative (Negative) Disposition Clinical Impression: Abdominal pain Disposition: HOME SELF-CARE Condition: Good Instructions: Abdominal Pain (ED) Prescriptions: Dicyclomine [Bentyl] 20 mg PO QID #15 tablet Ondansetron Odt [Zofran ODT] 4 mg PO Q8HR PRN #10 tab PRN Reason: Nausea Is patient prescribed a controlled substance at d/c from ED?: No Referrals: Emery Trinidad Jr, [Primary Care Provider] - 1-2 days
--- NOTE | 2018-05-20 07:07 | CT ---
EXAMINATION TYPE: CT abdomen pelvis wo con DATE OF EXAM: 05/20/2018 COMPARISON: 05/09/2018 HISTORY: Rt sided pain, recently told he had colitis and diverticulitis CT DLP: 620.8 mGycm Automated exposure control for dose reduction was used. TECHNIQUE: Helical acquisition of images was performed from the lung bases through the pelvis. FINDINGS: Lung bases are clear of infiltrate. There is no pleural effusion. Heart size is normal. Liver shows no focal defect. Spleen pancreas appear normal. Gallbladder appears normal. Bile ducts ar e not dilated. There is no adrenal mass. Kidneys have normal size and contour. There is no hydronephrosis. Ureters a re not dilated. Bladder distends smoothly. There is no inguinal hernia. There is no free fluid in the pelvis. Appendix appears normal. The lumbar spine is intact. Bony pelvis appears intact. There is no mesenteric edema or adenopathy. There is no evidence of a bowel obstruction. There is no free air. T here is no ascites. IMPRESSION: NEGATIVE CT SCAN ABDOMEN AND PELVIS. THERE IS MILD WALL THICKENING OF THE SIGMOID COLON ON PREVIOUS E XAM THAT IS NOT SEEN ON TODAY'S EXAM THAT SUGGESTS RESOLVING COLITIS.
[2018-05-20 07:45] LABS: Appearance,Urine Clear (Clear); Bilirubin,Urine Negative (Negative); Blood,Urine Negative (Negative); Color,Urine Light Yellow; Glucose,Urine (UA) Negative (Negative); Ketones,Urine Negative (Negative); Leukocyte Esterase,Urine Negative (Negative); Nitrite,Urine Negative (Negative); Protein,Urine Negative (Negative); Specific Gravity,Urine 1.004 (1.001-1.035); Urobilinogen,Urine <2.0 mg/dL (<2.0)
[2018-05-20] MEDS ORDERED: DICYCLOMINE 20 MG TAB PO STA (08:16)
[2018-05-20] MEDS ORDERED: MORPHINE SULFATE 4 MG/ML SYRINGE IVP STA (08:22)
[2018-05-20 11:07] VITALS: BP 140/91; PULSE 71; RESP 18
--- NOTE | 2018-05-28 01:06 | CDI ---
Dear Luis Enrique Hernandez MD: Please do addendum Physical Examination. Thank you, Solo Veloz, Chef Concierge. If you have any questions, please contact Administrative Liaison at [phone]. [facility]
== END 2018-05-20 11:08 | disposition home or self-care (01) ==
LOC: EC 04:17
DX: R10.84 Generalized abdominal pain (principal); F17.200 Nicotine dependence, unspecified, uncomplicated; Z88.0 Allergy status to penicillin; Z88.8 Allergy status to other drugs, medicaments and biological substances
CPT/HCPCS: 82075; 36415; 80053; 82150; 83690; 85025; 81003; 74176; 99284; 96374; 96375; 96376; J2270; J2405

== ENCOUNTER 2018-05-23 02:49 | Emergency (ER) | payer OTHER ==
[2018-05-23 02:55] VITALS: TEMP 97.6
--- NOTE | 2018-05-23 03:09 | ED ---
Abdominal Pain HPI - General Chief Complaint: Abdominal Pain Stated Complaint: abd pain, depression Time Seen by Provider: 05/23/18 02:59 Source: patient Mode of arrival: ambulatory Limitations: no limitations - History of Present Illness Initial Comments: Conrad is a 32-year-old gentleman who presents to the emergency department today for reevaluation of persistent abdominal pain nausea and vomiting. Patient has been evaluated 2 previous times in the past 3 weeks, both times he had CT scans, his initial computed tomography scan revealed colitis and diverticulosis, his repeat computed tomography scan revealed no acute pathology. Patient reports that he continues to have intermittent crampy diffuse abdominal pain with associated nausea and vomiting. Patient reports that throughout the day yesterday all he can do his pacer around the house because of the abdominal pain, he cannot find a comfortable position. He reports that through the night he had multiple episodes of vomiting which prompted him to return to the emergency department for reevaluation. Patient reports that he has followed up with gastroenterology since his first visit to the ER and he is scheduled to see gastroenterology again later today for reevaluation. Patient reports he was prescribed Bentyl but he feels that worsening his symptoms. Patient can't identify anything that exacerbates or relieves his symptoms at all. His symptoms are not related to food or what he eats. Patient states that he feels he is having a mental break due to this abdominal pain. He states that if he can't stay in the hospital because of his abdominal pain he feels like he needs to be in a psychiatric facility as he is unable to cope with this discomfort. - Related Data Home Medications Medication Instructions Recorded Confirmed Ondansetron HCl [Zofran] 8 mg PO Q8H PRN 04/09/18 05/23/18 Acetaminophen [Tylenol Arthritis] 650 mg PO Q12H PRN 05/09/18 05/23/18 Hyoscyamine Sulfate [Hyoscyamine 0.125 mg SL Q4H PRN 05/09/18 05/23/18 Sulfate SL] Previous Rx's Medication Instructions Recorded Dicyclomine [Bentyl] 20 mg PO QID #15 tablet 05/20/18 Ondansetron Odt [Zofran ODT] 4 mg PO Q8HR PRN #10 tab 05/20/18 Allergies Allergy/AdvReac Type Severity Reaction Status Date / Time amoxicillin [From Augmentin] Allergy Unknown Verified 05/23/18 02:55 carbinoxamine maleate Allergy Rash/Hives Verified 05/23/18 02:55 [From Rondec] clavulanic acid Allergy Unknown Verified 05/23/18 02:55 [From Augmentin] pseudoephedrine HCl Allergy Rash/Hives Verified 05/23/18 02:55 [From Rondec] Review of Systems ROS Statement: Those systems with pertinent positive or pertinent negative responses have been documented in the HPI. ROS Other: All systems not noted in ROS Statement are negative. Past Medical History Past Medical History: GERD/Reflux, Musculoskeletal Disorder Additional Past Medical History / Comment(s): LT KNEE GIVES OUT AT TIMES- NO SPECIFIC INJURY carpel tunnel and ibs , colitis, diverticulosis History of Any Multi-Drug Resistant Organisms: None Reported Past Surgical History: Hernia Repair, Orthopedic Surgery Additional Past Surgical History / Comment(s): colonscopy pilonial cyst Past Anesthesia/Blood Transfusion Reactions: No Reported Reaction Additional Past Anesthesia/Blood Transfusion Reaction / Comment(s): PT HAS NEVER HAD SURGERY Past Psychological History: ADD/ADHD, Anxiety, Depression Smoking Status: Current every day smoker Past Alcohol Use History: None Reported Past Drug Use History: Marijuana - Past Family History Mother Family Medical History: Cancer Additional Family Medical History / Comment(s): BREAST,CERVICAL & COLON CA Father Family Medical History: Hypertension Additional Family Medical History / Comment(s): HYDROCEPHALIS,SEIZURE DISORDER, ADRENOLEUKODYSTROPHY General Exam - General Exam Comments Initial Comments: Physical Exam GENERAL: Patient is well-developed and well-nourished. Patient is nontoxic and well-hydrated, patient in mild distress, has vomited basin on his lap HENT: Normocephalic, Atraumatic. EYES: PERRL, EOMI PULMONARY: Unlabored respirations CARDIOVASCULAR: There is a regular rate and rhythm without any murmurs gallops or rubs. ABDOMEN: Abdomen is soft, nonperitoneal When patient is distracted I'm able to palpate deeply with minimal response however at times patient does report pain with palpation SKIN: Skin is clear with no lesions or rashes and otherwise unremarkable. : Deferred NEUROLOGIC: Patient is alert and oriented x3. Moving all extremities spontaneously MUSCULOSKELETAL: Normal extremities with adequate strength and full range of motion. No lower extremity swelling or edema. No calf tenderness. PSYCHIATRIC: Agitated Limitations: no limitations Limitations: no limitations Course Vital Signs 05/23/18 05/23/18 05/23/18 02:50 04:06 05:12 Temperature 97.6 F Pulse Rate 84 79 62 Respiratory 18 16 16 Rate Blood Pressure 147/80 131/94 134/89 O2 Sat by Pulse 100 100 99 Oximetry Medical Decision Making - Medical Decision Making The patient was seen and evaluated, history was obtained from the patient and review of his previous medical record Patient with recurrent episodes of abdominal pain, previously diagnosed with colitis which resolved on repeat computed tomography scan [place] labs are ordered Patient requesting narcotic pain medication as he feels Bentyl makes his pain worse, I advised the patient we will wait a full workup before any narcotics could be administered Zofran was ordered for nausea Patient was noted to be retching very loudly but not vomiting. Patient expresses agitation that he hasn't been treated for his pain. Patient smells strongly of marijuana and seems to have some epigastric discomfort nausea and vomiting. High suspicion for a cyclic vomiting or cannabis hyperemesis syndrome. Labs revealed no acute abnormalities KUB with no acute abnormalities Patient is medically cleared for evaluation by EPS She was evaluated by EPS recommend outpatient follow-up and counseling. Patient was reexamined, is sitting up appears much more comfortable, no nausea. I discussed with the patient possibility of cyclic vomiting or cannabis hyperemesis syndrome. Patient reports he's discussed this with his physicians in the past however he quit using marijuana for one month with no improvement in symptoms. He reports he usually marijuana improves his symptoms but it didn' t over the past 3 days which is why he came to the ER. Patient agreeable to plan for discharge home and follow up with Dr. Bradford later today as scheduled. Return parameters were discussed all questions pertaining care were answered best my ability patient discharged home in stable condition. - Lab Data Result diagrams: 05/23/18 03:08 05/23/18 03:08 Lab Results 05/23/18 05/23/18 05/23/18 Range/Units 03:08 03:08 Unknown WBC 8.7 (3.8-10.6) k/uL RBC 5.13 (4.30-5.90) m/uL Hgb 15.9 (13.0-17.5) gm/dL Hct 48.2 (39.0-53.0) % MCV 94.1 (80.0-100.0) fL MCH 30.9 (25.0-35.0) pg MCHC 32.9 (31.0-37.0) g/dL RDW 12.8 (11.5-15.5) % Plt Count 341 (150-450) k/uL Neutrophils % 59 % Lymphocytes % 29 % Monocytes % 6 % Eosinophils % 4 % Basophils % 1 % Neutrophils # 5.1 (1.3-7.7) k/uL Lymphocytes # 2.5 (1.0-4.8) k/uL Monocytes # 0.5 (0-1.0) k/uL Eosinophils # 0.4 (0-0.7) k/uL Basophils # 0.1 (0-0.2) k/uL Sodium 141 (137-145) mmol/L Potassium 4.0 (3.5-5.1) mmol/L Chloride 106 (98-107) mmol/L Carbon Dioxide 27 (22-30) mmol/L Anion Gap 8 mmol/L BUN 7 L (9-20) mg/dL Creatinine 0.93 (0.66-1.25) mg/dL Est GFR (CKD-EPI)AfAm >90 (>60 ml/min/1.73 sqM) Est GFR (CKD-EPI)NonAf >90 (>60 ml/min/1.73 sqM) Glucose 103 H (74-99) mg/dL Calcium 9.6 (8.4-10.2) mg/dL Total Bilirubin 0.7 (0.2-1.3) mg/dL AST 30 (17-59) U/L ALT 38 (21-72) U/L Alkaline Phosphatase 69 (38-126) U/L Total Protein 7.2 (6.3-8.2) g/dL Albumin 4.4 (3.5-5.0) g/dL Amylase 57 (30-110) U/L Lipase 122 (23-300) U/L Urine Color Light Yellow Urine Appearance Clear (Clear) Urine pH 6.5 (5.0-8.0) Ur Specific [place] 1.002 (1.001-1.035) Urine Protein Negative (Negative) Urine Glucose (UA) Negative (Negative) Urine Ketones Negative (Negative) Urine Blood Negative (Negative) Urine Nitrite Negative (Negative) Urine Bilirubin Negative (Negative) Urine Urobilinogen <2.0 (<2.0) mg/dL Ur Leukocyte Esterase Negative (Negative) Salicylates <1.0 mg/dL Urine Opiates Screen Not Detected (NotDetected) Ur Oxycodone Screen Not Detected (NotDetected) Urine Methadone Screen Not Detected (NotDetected) Ur Propoxyphene Screen Not Detected (NotDetected) Acetaminophen <10.0 ug/mL Ur Barbiturates Screen Not Detected (NotDetected) U Tricyclic Antidepress Not Detected (NotDetected) Ur Phencyclidine Scrn Not Detected (NotDetected) Ur Amphetamines Screen Not Detected (NotDetected) U Methamphetamines Scrn Not Detected (NotDetected) U Benzodiazepines Scrn Not Detected (NotDetected) Urine Cocaine Screen Not Detected (NotDetected) U Marijuana (THC) Screen Detected H (NotDetected) Serum Alcohol <10 mg/dL Disposition Clinical Impression: Abdominal pain Disposition: HOME SELF-CARE Condition: Stable Instructions: Abdominal Pain (ED) Is patient prescribed a controlled substance at d/c from ED?: No Referrals: Emery Trinidad Jr, DO [Primary Care Provider] - 1-2 days Alexander Stephens MD [STAFF PHYSICIAN] - 1-2 days
[2018-05-23 03:17] LABS: Basophils # (A) 0.1 k/uL (0-0.2); Basophils % (A) 1 %; Eosinophils # (A) 0.4 k/uL (0-0.7); Eosinophils % (A) 4 %; HCT 48.2 % (39.0-53.0); HGB 15.9 gm/dL (13.0-17.5); Lymphocytes # (A) 2.5 k/uL (1.0-4.8); Lymphocytes % (A) 29 %; MCH 30.9 pg (25.0-35.0); MCHC 32.9 g/dL (31.0-37.0); MCV 94.1 fL (80.0-100.0); Mean Platelet Volume 6.1; Monocytes # (A) 0.5 k/uL (0-1.0); Monocytes % (A) 6 %; Neutrophils # (A) 5.1 k/uL (1.3-7.7); Neutrophils % (A) 59 %; Platelet Count 341 k/uL (150-450); RBC 5.13 m/uL (4.30-5.90); RDW 12.8 % (11.5-15.5); WBC 8.7 k/uL (3.8-10.6)
[2018-05-23 03:29] LABS: Glucose 103 mg/dL (74-99); Total Protein 7.2 g/dL (6.3-8.2)
[2018-05-23 03:30] LABS: ALT 38 U/L (21-72); AST 30 U/L (17-59); Acetaminophen <10.0 ug/mL; Albumin 4.4 g/dL (3.5-5.0); Alcohol <10 mg/dL; Alkaline Phosphatase 69 U/L (38-126); Amylase 57 U/L (30-110); Anion Gap 8 mmol/L; Blood Urea Nitrogen 7 mg/dL (9-20); Calcium 9.6 mg/dL (8.4-10.2); Carbon Dioxide 27 mmol/L (22-30); Chloride 106 mmol/L (98-107); Lipase 122 U/L (23-300); Salicylate <1.0 mg/dL; Sodium 141 mmol/L (137-145); Total Bilirubin 0.7 mg/dL (0.2-1.3)
[2018-05-23] MEDS ORDERED: ONDANSETRON 4 MG/2 ML VIAL IVP STA (03:59)
[2018-05-23] MEDS ORDERED: SODIUM CHLORIDE 0.9% 1,000 ML IV ONE (03:59)
[2018-05-23 04:07] VITALS: RESP 16
[2018-05-23 04:27] LABS: Appearance,Urine Clear (Clear); Bilirubin,Urine Negative (Negative); Blood,Urine Negative (Negative); Color,Urine Light Yellow; Glucose,Urine (UA) Negative (Negative); Ketones,Urine Negative (Negative); Leukocyte Esterase,Urine Negative (Negative); Nitrite,Urine Negative (Negative); PH, Urine 6.5 (5.0-8.0); Protein,Urine Negative (Negative); Specific Gravity,Urine 1.002 (1.001-1.035); Urobilinogen,Urine <2.0 mg/dL (<2.0)
--- NOTE | 2018-05-23 04:36 | XR ---
EXAMINATION TYPE: XR KUB DATE OF EXAM: 05/23/2018 COMPARISON: 04/09/2018 HISTORY: Abdominal pain TECHNIQUE: 2 views FINDINGS: There is no sign of intestinal obstruction or pneumoperitoneum. Fecal pattern is normal. Kaela ng bases are clear. There are no pathologic calcifications over the kidneys. Bony structures are inta ct. IMPRESSION: Nonacute abdomen. No change.
[2018-05-23 05:02] LABS: Amphetamine Screen,Urine Not Detected (NotDetected); Barbiturate Screen,Urine Not Detected (NotDetected); Benzodiazepines Screen,Urine Not Detected (NotDetected); Cocaine Screen,Urine Not Detected (NotDetected); Methadone Screen, Urine Not Detected (NotDetected); Opiate Screen,Urine Not Detected (NotDetected); Oxycodone Screen, Urine Not Detected (NotDetected); Phencyclidine Screen,Urine Not Detected (NotDetected); Tricyclic Antidepressant,Urine Not Detected (NotDetected); Urn Cannabinoid Scrn Detected (NotDetected)
[2018-05-23] MEDS ORDERED: KETOROLAC 30 MG/ML 1 ML VIAL IVP STA (05:08)
[2018-05-23 05:13] VITALS: BP 134/89
[2018-05-23 06:08] VITALS: PULSE 66
== END 2018-05-23 06:13 | disposition home or self-care (01) ==
LOC: EC 02:49
DX: R10.84 Generalized abdominal pain (principal); R11.2 Nausea with vomiting, unspecified; R45.1 Restlessness and agitation; F17.200 Nicotine dependence, unspecified, uncomplicated; Z87.19 Personal history of other diseases of the digestive system; Z88.0 Allergy status to penicillin; Z88.8 Allergy status to other drugs, medicaments and biological substances
CPT/HCPCS: 36415; 80053; 82150; 83690; 85025; 81003; 80306; 83520 ×2; 74018; 99285; 96374; 96375; G0480; J2405; J1885; 80320

== ENCOUNTER → 2018-06-20 | Day surgery (SDC) | payer OTHER ==
[~2018-06-20] MED LIST: GLUCAGON 1 MG/ML VIAL IM STA
[2018-06-20 08:36] VITALS: BP 146/93; PULSE 100; RESP 16; TEMP 98.3
--- NOTE | 2018-06-25 17:32 | MR ---
EXAMINATION TYPE: MR Enterography DATE OF EXAM: 06/20/2018 COMPARISON: CT of the abdomen and pelvis dated 05/20/2018 HISTORY: Abdomen pain CONTRAST: Standard multiplanar, multisequence imaging of the abdomen is performed without and with IV contrast, patient is injected with 10 mL intravenous Gadavist gadolinium contrast. 3 bottles of oral Volumen a nd Water was given as per enterography protocol. FINDINGS: There is no evidence of dilated large or small bowel to suggest obstruction. The terminal ileum is un remarkable, however within the distal ileum there is a long segment area of abnormal enhancement danay uring approximately 3.5 cm that is located approximately 5 cm from the terminal ileum/cecal junction. There are few scattered nonenlarged central mesenteric and right lower quadrant lymph nodes that are sub-3 mm. Appendix is within normal limits without periappendiceal fat stranding. The remainder of t he small bowel demonstrates no abnormal enhancement or bowel wall thickening. There is no evidence of focal stricture or obstruction. No pericolonic or perienteric fluid collection to suggest abscess at this time. No mesenteric venous/vascular engorgement of the vasa recta/Comb's sign. No creeping mese nteric fat or submucosal deposition of fat suggest component of the ileitis. The limited visualized portions of the solid viscera in the abdomen are grossly unremarkable. There i s incomplete visualization of the spleen, liver, kidneys, and pancreatic tail. Abdominal aorta appear s of normal course. No greater than 1 cm short axis lymph nodes are noted within the abdomen or pelvis. Gluteal soft tiss ues are not included and therefore gluteal sinus tract cannot be evaluated for. IMPRESSION: Abnormal enhancement of the thickened distal ileum measuring a total length of 3.5 cm relating to act bindu ileitis. This is located approximately 5 cm from the terminal ileum. Findings are suggestive of u nderlying Crohn's disease. No surrounding fluid collection is seen to suggest abscess. No current chr onic findings of inflammatory bowel disease. No current sinus tract or fistula is seen. No obstructio n.
== END ==
LOC: RADMRIMAIN 08:10
DX: K52.9 Noninfective gastroenteritis and colitis, unspecified (principal)
CPT/HCPCS: 96372; 72197; 74183; J1610; A9585

== ENCOUNTER 2018-06-22 06:17 | Emergency (ER) | payer OTHER ==
[2018-06-22 06:28] VITALS: RESP 18
[2018-06-22] MEDS ORDERED: ONDANSETRON 4 MG/2 ML VIAL IVP STA (06:38)
[2018-06-22] MEDS ORDERED: SODIUM CHLORIDE 0.9% 1,000 ML IV STA (06:38)
--- NOTE | 2018-06-22 06:59 | ED ---
Abdominal Pain HPI - General Chief Complaint: Abdominal Pain Stated Complaint: Abd Pain Time Seen by Provider: 06/22/18 06:53 Source: patient Mode of arrival: ambulatory Limitations: no limitations - History of Present Illness Initial Comments: Conrad is a 32-year-old male with a history of chronic abdominal pain who presents the emergency department today for evaluation of abdominal pain. Patient reports that he did a GI prep for an MRI 2-3 days ago, he reports that since that time he has felt dehydrated. He reports he felt unwell throughout the day all day yesterday. He states that he woke up during the night tonight with crampy abdominal pain. He had 2 episodes of diarrhea which was nonbloody in nature. He then showered. After shower he drinks Werners but developed some nausea, he took Zofran, Pepcid as well as a GI cocktail was subsequently vomited. Patient reports he has persistent crampy pain worse in the lower abdomen radiating to his right flank. Pain is stabbing constant worse with any movement or palpation. - Related Data Home Medications Medication Instructions Recorded Confirmed Ondansetron HCl [Zofran] 8 mg PO Q8H PRN 04/09/18 06/20/18 Acetaminophen [Tylenol Arthritis] 650 mg PO Q12H PRN 05/09/18 06/20/18 Hyoscyamine Sulfate [Hyoscyamine 0.125 mg SL Q4H PRN 05/09/18 06/20/18 Sulfate SL] Naproxen Sodium [Aleve] 220 mg PO BID 06/20/18 06/20/18 Previous Rx's Medication Instructions Recorded Ondansetron Odt [Zofran ODT] 4 mg PO Q8HR PRN #10 tab 05/20/18 Ibuprofen [Motrin] 800 mg PO TID #60 tab 06/22/18 Allergies Allergy/AdvReac Type Severity Reaction Status Date / Time amoxicillin [From Augmentin] Allergy Unknown Verified 06/22/18 06:28 carbinoxamine maleate Allergy Rash/Hives Verified 06/22/18 06:28 [From Rondec] clavulanic acid Allergy Unknown Verified 06/22/18 06:28 [From Augmentin] pseudoephedrine HCl Allergy Rash/Hives Verified 06/22/18 06:28 [From Rondec] sulfamethoxazole Allergy Vomiting Verified 06/22/18 06:28 [From Bactrim] trimethoprim [From Bactrim] Allergy Vomiting Verified 06/22/18 06:28 Review of Systems ROS Statement: Those systems with pertinent positive or pertinent negative responses have been documented in the HPI. ROS Other: All systems not noted in ROS Statement are negative. Past Medical History Past Medical History: GERD/Reflux, Musculoskeletal Disorder Additional Past Medical History / Comment(s): LT KNEE GIVES OUT AT TIMES- NO SPECIFIC INJURY carpel tunnel and ibs , colitis, diverticulosis History of Any Multi-Drug Resistant Organisms: None Reported Past Surgical History: Hernia Repair, Orthopedic Surgery Additional Past Surgical History / Comment(s): colonscopy pilonial cyst Past Anesthesia/Blood Transfusion Reactions: No Reported Reaction Additional Past Anesthesia/Blood Transfusion Reaction / Comment(s): PT HAS NEVER HAD SURGERY Past Psychological History: ADD/ADHD, Anxiety, Depression Smoking Status: Current every day smoker Past Alcohol Use History: None Reported Past Drug Use History: Marijuana - Past Family History Mother Family Medical History: Cancer Additional Family Medical History / Comment(s): BREAST,CERVICAL & COLON CA Father Family Medical History: Hypertension Additional Family Medical History / Comment(s): HYDROCEPHALIS,SEIZURE DISORDER, ADRENOLEUKODYSTROPHY General Exam - General Exam Comments Initial Comments: Physical Exam GENERAL: Patient is well-developed and well-nourished. Patient is nontoxic and well-hydrated and appears uncomfortable. HENT: Normocephalic, Atraumatic. EYES: PERRL, EOMI PULMONARY: Unlabored respirations. No audible rales rhonchi or wheezing was noted. CARDIOVASCULAR: There is a regular rate and rhythm without any murmurs gallops or rubs. ABDOMEN: Soft with normal bowel sounds. Tenderness to palpation in all quadrants worse in the right lower quadrant SKIN: Skin is clear with no lesions or rashes and otherwise unremarkable. : Deferred NEUROLOGIC: Patient is alert and oriented x3. Moving all extremities spontaneously MUSCULOSKELETAL: Normal extremities with adequate strength and full range of motion. No lower extremity swelling or edema. No calf tenderness. PSYCHIATRIC: Normal psychiatric evaluation. Limitations: no limitations Limitations: no limitations Course Vital Signs 06/22/18 06/22/18 06/22/18 06:23 06:51 08:16 Temperature 97.0 F L 97.3 F L Pulse Rate 67 73 Respiratory 18 18 Rate Blood Pressure 134/87 151/95 O2 Sat by Pulse 100 98 Oximetry Medical Decision Making - Medical Decision Making The patient was seen and evaluated history was obtained from the patient and review of medical records Patient with a history of chronic abdominal pain presenting with abdominal pain diarrhea nausea and vomiting. Labs and imaging ordered Patient did have a CT of the abdomen in April which showed colitis as well as a repeat CT in early May which showed resolving colitis patient subsequently had a KUB x-ray with no acute findings and an MR enterography which was performed 2 days ago but has not resulted as of yet. Labs with no significant abnormalities, results discussed with patient who is agreeable to plan for discharge home and follow up with PCP and GI. Return parameters discussed, all questions pertaining to care were answered and the patient was discharged home in stable condition. - Lab Data Result diagrams: 06/22/18 07:04 06/22/18 07:04 Lab Results 06/22/18 06/22/18 Range/Units 07:04 07:04 WBC 8.3 (3.8-10.6) k/uL RBC 5.04 (4.30-5.90) m/uL Hgb 15.3 (13.0-17.5) gm/dL Hct 46.9 (39.0-53.0) % MCV 93.2 (80.0-100.0) fL MCH 30.3 (25.0-35.0) pg MCHC 32.5 (31.0-37.0) g/dL RDW 13.1 (11.5-15.5) % Plt Count 308 (150-450) k/uL Neutrophils % 66 % Lymphocytes % 21 % Monocytes % 7 % Eosinophils % 4 % Basophils % 1 % Neutrophils # 5.4 (1.3-7.7) k/uL Lymphocytes # 1.7 (1.0-4.8) k/uL Monocytes # 0.6 (0-1.0) k/uL Eosinophils # 0.3 (0-0.7) k/uL Basophils # 0.1 (0-0.2) k/uL Sodium 141 (137-145) mmol/L Potassium 4.4 (3.5-5.1) mmol/L Chloride 108 H (98-107) mmol/L Carbon Dioxide 29 (22-30) mmol/L Anion Gap 4 mmol/L BUN 7 L (9-20) mg/dL Creatinine 0.88 (0.66-1.25) mg/dL Est GFR (CKD-EPI)AfAm >90 (>60 ml/min/1.73 sqM) Est GFR (CKD-EPI)NonAf >90 (>60 ml/min/1.73 sqM) Glucose 109 H (74-99) mg/dL Calcium 9.6 (8.4-10.2) mg/dL Total Bilirubin 0.7 (0.2-1.3) mg/dL AST 33 (17-59) U/L ALT 40 (21-72) U/L Alkaline Phosphatase 61 (38-126) U/L Total Protein 6.7 (6.3-8.2) g/dL Albumin 4.1 (3.5-5.0) g/dL Amylase 56 (30-110) U/L Lipase 88 (23-300) U/L Disposition Clinical Impression: Abdominal pain Disposition: HOME SELF-CARE Instructions: Abdominal Pain (ED) Prescriptions: Ibuprofen [Motrin] 800 mg PO TID #60 tab Is patient prescribed a controlled substance at d/c from ED?: No Referrals: Emery Trinidad Jr, [Primary Care Provider] - 1-2 days Time of Disposition: 08:02
[2018-06-22 07:25] LABS: Basophils # (A) 0.1 k/uL (0-0.2); Basophils % (A) 1 %; Eosinophils # (A) 0.3 k/uL (0-0.7); Eosinophils % (A) 4 %; HCT 46.9 % (39.0-53.0); HGB 15.3 gm/dL (13.0-17.5); Lymphocytes # (A) 1.7 k/uL (1.0-4.8); Lymphocytes % (A) 21 %; MCH 30.3 pg (25.0-35.0); MCHC 32.5 g/dL (31.0-37.0); MCV 93.2 fL (80.0-100.0); Mean Platelet Volume 6.2; Monocytes # (A) 0.6 k/uL (0-1.0); Monocytes % (A) 7 %; Neutrophils # (A) 5.4 k/uL (1.3-7.7); Neutrophils % (A) 66 %; Platelet Count 308 k/uL (150-450); RBC 5.04 m/uL (4.30-5.90); RDW 13.1 % (11.5-15.5); WBC 8.3 k/uL (3.8-10.6)
--- NOTE | 2018-06-22 07:28 | XR ---
EXAMINATION TYPE: XR KUB DATE OF EXAM: 06/22/2018 COMPARISON: NONE HISTORY: Pain TECHNIQUE: Single supine KUB image of the abdomen is obtained FINDINGS: Small bowel demonstrates no evidence for dilatation or air fluid levels. Gas and fecal material is seen in non-distended colon. No convincing evidence for pneumoperitoneum. No unusual calcifications. The lung bases are clear. The osseous structures are intact. IMPRESSION: 1. Overall nonobstructive bowel gas pattern.
[2018-06-22 07:32] LABS: ALT 40 U/L (21-72); AST 33 U/L (17-59); Albumin 4.1 g/dL (3.5-5.0); Alkaline Phosphatase 61 U/L (38-126); Amylase 56 U/L (30-110); Anion Gap 4 mmol/L; Blood Urea Nitrogen 7 mg/dL (9-20); Calcium 9.6 mg/dL (8.4-10.2); Carbon Dioxide 29 mmol/L (22-30); Chloride 108 mmol/L (98-107); Glucose 109 mg/dL (74-99); Lipase 88 U/L (23-300); Potassium 4.4 mmol/L (3.5-5.1); Sodium 141 mmol/L (137-145); Total Bilirubin 0.7 mg/dL (0.2-1.3); Total Protein 6.7 g/dL (6.3-8.2)
[2018-06-22] MEDS ORDERED: DICYCLOMINE 10 MG/ML 2 ML AMP IM STA (07:37)
[2018-06-22] MEDS ORDERED: ACET/COD 300 MG/30 MG STARTER PACK 6 TAB BTL PO STA (08:02)
[2018-06-22 08:19] VITALS: BP 151/95; PULSE 73; TEMP 97.3
== END 2018-06-22 08:16 | disposition home or self-care (01) ==
LOC: EC 06:17
DX: R10.30 Lower abdominal pain, unspecified (principal); R11.2 Nausea with vomiting, unspecified; R19.7 Diarrhea, unspecified; G89.29 Other chronic pain; F17.200 Nicotine dependence, unspecified, uncomplicated; Z88.0 Allergy status to penicillin; Z88.2 Allergy status to sulfonamides; Z88.8 Allergy status to other drugs, medicaments and biological substances; Z79.1 Long term (current) use of non-steroidal anti-inflammatories (NSAID); Z80.0 Family history of malignant neoplasm of digestive organs
CPT/HCPCS: 36415; 80053; 82150; 83690; 85025; 74018; 99284; 96374; 96361; 96372; J0500; J2405

== ENCOUNTER 2018-07-04 16:15 | Emergency (ER) | payer OTHER ==
[2018-07-04 16:31] VITALS: RESP 18
[2018-07-04] MEDS ORDERED: ONDANSETRON 4 MG/2 ML VIAL IVP STA ×2 (17:10→19:09)
[2018-07-04] MEDS ORDERED: MORPHINE SULFATE 4 MG/ML SYRINGE IV STA ×2 (17:10→19:09)
[2018-07-04] MEDS ORDERED: SODIUM CHLORIDE 0.9% 1,000 ML IV STA (17:44)
--- NOTE | 2018-07-04 17:44 | ED ---
General Adult HPI - General Chief complaint: Nausea/Vomiting/Diarrhea Stated complaint: Post op pain, dr sent Time Seen by Provider: 07/04/18 16:37 Source: patient, RN notes reviewed Mode of arrival: ambulatory Limitations: no limitations - History of Present Illness Initial comments: Patient is a 32-year-old male presenting to the emergency room today with a chief complaint of increased nausea vomiting. He does admit that he had a colonoscopy done this morning. Patient states that they did do this biopsied. Patient states that he is experiencing pain on the right side and lower aspect of the abdomen. He states is consistent with pain that he was having prior to colonoscopy but it is intensified since. He states he's had multiple episodes nausea vomiting difficult time keeping anything down since colonoscopy. Denies any other complaints currently. Patient denies any recent fever, chills, shortness of breath, chest pain, back pain, headaches or visual changes, or any other complaints. - Related Data Home Medications Medication Instructions Recorded Confirmed Ondansetron HCl [Zofran] 8 mg PO Q8H PRN 04/09/18 07/04/18 Acetaminophen [Tylenol Arthritis] 650 mg PO Q12H PRN 05/09/18 07/04/18 Hyoscyamine Sulfate [Hyoscyamine 0.125 mg SL Q4H PRN 05/09/18 07/04/18 Sulfate SL] Naproxen Sodium [Aleve] 440 mg PO BID 06/20/18 07/04/18 Famotidine [Pepcid] 20 mg PO BID 07/04/18 07/04/18 Allergies Allergy/AdvReac Type Severity Reaction Status Date / Time amoxicillin [From Augmentin] Allergy Unknown Verified 07/04/18 17:14 carbinoxamine maleate Allergy Rash/Hives Verified 07/04/18 17:14 [From Rondec] clavulanic acid Allergy Unknown Verified 07/04/18 17:14 [From Augmentin] pseudoephedrine HCl Allergy Rash/Hives Verified 07/04/18 17:14 [From Rondec] sulfamethoxazole Allergy Vomiting Verified 07/04/18 17:14 [From Bactrim] trimethoprim [From Bactrim] Allergy Vomiting Verified 07/04/18 17:14 Review of Systems ROS Statement: Those systems with pertinent positive or pertinent negative responses have been documented in the HPI. ROS Other: All systems not noted in ROS Statement are negative. Past Medical History Past Medical History: GERD/Reflux, Musculoskeletal Disorder Additional Past Medical History / Comment(s): LT KNEE GIVES OUT AT TIMES- NO SPECIFIC INJURY carpel tunnel and ibs , colitis, diverticulosis History of Any Multi-Drug Resistant Organisms: None Reported Past Surgical History: Hernia Repair, Orthopedic Surgery Additional Past Surgical History / Comment(s): colonscopy pilonODIal cyst Past Anesthesia/Blood Transfusion Reactions: No Reported Reaction Additional Past Anesthesia/Blood Transfusion Reaction / Comment(s): PT HAS NEVER HAD SURGERY Past Psychological History: ADD/ADHD, Anxiety, Depression Smoking Status: Current every day smoker Past Alcohol Use History: None Reported Past Drug Use History: Marijuana - Past Family History Mother Family Medical History: Cancer Additional Family Medical History / Comment(s): BREAST,CERVICAL & COLON CA Father Family Medical History: Hypertension Additional Family Medical History / Comment(s): HYDROCEPHALIS,SEIZURE DISORDER, ADRENOLEUKODYSTROPHY General Exam - General Exam Comments Initial Comments: General: The patient is awake and alert, in no distress, and does not appear acutely ill. Eye: There is normal conjunctiva bilaterally. No signs of icterus. Ears, nose, mouth and throat: There are moist mucous membranes and no oral lesions. Neck: The neck is supple, there is no tenderness or JVD. Cardiovascular: There is a regular rate and rhythm. No murmur, rub or gallop is appreciated. Respiratory: Lungs are clear to auscultation, respirations are non-labored, breath sounds are equal. No wheezes, stridor, rales, or rhonchi. Gastrointestinal: Abdomen soft on palpation. Patient does have tenderness to right quadrant. No rebound, guarding or CVA tenderness. Musculoskeletal: Normal ROM, no tenderness. Neurological: A&O x 3. CN II-XII intact, There are no obvious motor or sensory deficits. Coordination appears grossly intact. Speech is normal. Skin: Skin is warm and dry and no rashes or lesions are noted. Psychiatric: Cooperative, appropriate mood & affect, normal judgment. Limitations: no limitations Course Vital Signs 07/04/18 16:29 Temperature 98.5 F Pulse Rate 111 H Respiratory 18 Rate Blood Pressure 144/95 O2 Sat by Pulse 98 Oximetry Medical Decision Making - Medical Decision Making Patient reexamined at this time shows no signs of distress. Is at the soft nontender. X-ray was reviewed and shows no evidence of free air. No other acute abnormality. Patient did have a colonoscopy this morning.Please use medication as discussed. Please follow-up with family doctor in the next 2 days of symptoms have not improved. Please return to emergency room if the symptoms increase or worsen or for any other concerns. Labs reviewed 15,000 white count. Has had multiple episodes of nausea vomiting. Patient states history of abdominal pain which was present before colonoscopy. States is same type pain that is had in the past. Patient's had multiple CTs and recent MRI the beginning of this month. This was reviewed. There is evidence for Crohn's disease. Was discussed with patient.Please use medication as discussed. Please follow-up with family doctor in the next 2 days of symptoms have not improved. Please return to emergency room if the symptoms increase or worsen or for any other concerns. Is resting comfortably. Does admit improvement after medicines given here in emergency room. Was discussed about CT for further evaluation. At this times in agreement that he feels comfortable being discharged to follow-up tomorrow morning. Advised patient to return if symptoms increase or worsen. He states understanding and is in agreement. - Lab Data Result diagrams: 07/04/18 17:14 07/04/18 17:14 Lab Results 07/04/18 07/04/18 07/04/18 Range/Units 17:14 17:14 18:00 WBC 15.1 H (3.8-10.6) k/uL RBC 5.00 (4.30-5.90) m/uL Hgb 15.3 (13.0-17.5) gm/dL Hct 47.0 (39.0-53.0) % MCV 93.9 (80.0-100.0) fL MCH 30.7 (25.0-35.0) pg MCHC 32.6 (31.0-37.0) g/dL RDW 13.1 (11.5-15.5) % Plt Count 362 (150-450) k/uL Neutrophils % 81 % Lymphocytes % 12 % Monocytes % 5 % Eosinophils % 1 % Basophils % 0 % Neutrophils # 12.2 H (1.3-7.7) k/uL Lymphocytes # 1.8 (1.0-4.8) k/uL Monocytes # 0.7 (0-1.0) k/uL Eosinophils # 0.2 (0-0.7) k/uL Basophils # 0.0 (0-0.2) k/uL Sodium 140 (137-145) mmol/L Potassium 4.1 (3.5-5.1) mmol/L Chloride 109 H (98-107) mmol/L Carbon Dioxide 25 (22-30) mmol/L Anion Gap 6 mmol/L BUN 4 L (9-20) mg/dL Creatinine 0.80 (0.66-1.25) mg/dL Est GFR (CKD-EPI)AfAm >90 (>60 ml/min/1.73 sqM) Est GFR (CKD-EPI)NonAf >90 (>60 ml/min/1.73 sqM) Glucose 94 (74-99) mg/dL Calcium 9.4 (8.4-10.2) mg/dL Total Bilirubin 0.4 (0.2-1.3) mg/dL AST 28 (17-59) U/L ALT 36 (21-72) U/L Alkaline Phosphatase 62 (38-126) U/L Total Protein 6.6 (6.3-8.2) g/dL Albumin 4.1 (3.5-5.0) g/dL Amylase 57 (30-110) U/L Lipase 51 (23-300) U/L Urine Color Light Yellow Urine Appearance Clear (Clear) Urine pH 8.0 (5.0-8.0) Ur Specific [place] 1.004 (1.001-1.035) Urine Protein Negative (Negative) Urine Glucose (UA) Negative (Negative) Urine Ketones Negative (Negative) Urine Blood Negative (Negative) Urine Nitrite Negative (Negative) Urine Bilirubin Negative (Negative) Urine Urobilinogen <2.0 (<2.0) mg/dL Ur Leukocyte Esterase Negative (Negative) Disposition Clinical Impression: Nausea & vomiting Disposition: HOME SELF-CARE Condition: Good Instructions: Acute Nausea and Vomiting (ED) Additional Instructions: Please follow-up with GI, family doctor tomorrow. Please return to emergency room if the symptoms increase or worsen or for any other concerns. Is patient prescribed a controlled substance at d/c from ED?: No Referrals: Emery Trinidad Jr, [Primary Care Provider] - 1-2 days Alexander Stephens MD [STAFF PHYSICIAN] - 1-2 days Time of Disposition: 19:12
[2018-07-04 17:49] LABS: Basophils % (A) 0 %; Eosinophils # (A) 0.2 k/uL (0-0.7); Eosinophils % (A) 1 %; HGB 15.3 gm/dL (13.0-17.5); Lymphocytes # (A) 1.8 k/uL (1.0-4.8); Lymphocytes % (A) 12 %; MCH 30.7 pg (25.0-35.0); MCHC 32.6 g/dL (31.0-37.0); MCV 93.9 fL (80.0-100.0); Mean Platelet Volume 6.2; Monocytes # (A) 0.7 k/uL (0-1.0); Monocytes % (A) 5 %; Neutrophils # (A) 12.2 k/uL (1.3-7.7); Neutrophils % (A) 81 %; Platelet Count 362 k/uL (150-450); RDW 13.1 % (11.5-15.5); WBC 15.1 k/uL (3.8-10.6)
[2018-07-04 17:56] LABS: ALT 36 U/L (21-72); AST 28 U/L (17-59); Albumin 4.1 g/dL (3.5-5.0); Alkaline Phosphatase 62 U/L (38-126); Amylase 57 U/L (30-110); Anion Gap 6 mmol/L; Blood Urea Nitrogen 4 mg/dL (9-20); Calcium 9.4 mg/dL (8.4-10.2); Carbon Dioxide 25 mmol/L (22-30); Chloride 109 mmol/L (98-107); Glucose 94 mg/dL (74-99); Lipase 51 U/L (23-300); Potassium 4.1 mmol/L (3.5-5.1); Sodium 140 mmol/L (137-145); Total Bilirubin 0.4 mg/dL (0.2-1.3); Total Protein 6.6 g/dL (6.3-8.2)
[2018-07-04 18:12] LABS: Appearance,Urine Clear (Clear); Bilirubin,Urine Negative (Negative); Blood,Urine Negative (Negative); Color,Urine Light Yellow; Glucose,Urine (UA) Negative (Negative); Ketones,Urine Negative (Negative); Leukocyte Esterase,Urine Negative (Negative); Nitrite,Urine Negative (Negative); Protein,Urine Negative (Negative); Specific Gravity,Urine 1.004 (1.001-1.035); Urobilinogen,Urine <2.0 mg/dL (<2.0)
--- NOTE | 2018-07-04 18:13 | XR ---
EXAMINATION TYPE: XR KUB DATE OF EXAM: 07/04/2018 COMPARISON: 06/22/2018 HISTORY: Abdominal pain and vomiting colonoscopy today TECHNIQUE: 2 views FINDINGS: 2 upright views were obtained and show no sign of intestinal obstruction or pneumoperitoneu m. Fecal pattern is normal. Lung bases are clear. There are no pathologic calcifications over the kid neys. IMPRESSION: Nonacute abdomen. No sign of free air. No change.
[2018-07-04 20:03] VITALS: BP 149/97; PULSE 77; TEMP 97.1
== END 2018-07-04 20:02 | disposition home or self-care (01) ==
LOC: EC 16:15
DX: R11.2 Nausea with vomiting, unspecified (principal); K50.90 Crohn's disease, unspecified, without complications; R10.31 Right lower quadrant pain; K21.9 Gastro-esophageal reflux disease without esophagitis; F17.200 Nicotine dependence, unspecified, uncomplicated; Z88.0 Allergy status to penicillin; Z88.2 Allergy status to sulfonamides; Z88.8 Allergy status to other drugs, medicaments and biological substances; Z79.1 Long term (current) use of non-steroidal anti-inflammatories (NSAID); Z79.899 Other long term (current) drug therapy; Z80.0 Family history of malignant neoplasm of digestive organs
CPT/HCPCS: 36415; 80053; 82150; 83690; 85025; 81003; 74018; 99284; 96374; 96375; 96376 ×2; 96361; J2270; J2405

== ENCOUNTER 2019-03-06 14:38 | Inpatient (IN) | payer OTHER ==
[2019-03-06] MEDS ORDERED: LORazepam 2 MG/ML INJ IV STA ×2 (15:12→17:30)
[2019-03-06] MEDS ORDERED: SODIUM CHLORIDE 0.9% 2,000 ML IV ONE (15:13)
--- NOTE | 2019-03-06 15:35 | ED ---
General Adult HPI - General Source: patient, RN notes reviewed, old records reviewed Mode of arrival: ambulatory Limitations: no limitations <Malika Charles - Last Filed: 03/06/19 17:25> <Jeanmarie Gamble - Last Filed: 03/06/19 21:04> <Luis Enrique Hernandez - Last Filed: 03/06/19 22:15> - General Chief complaint: Psychiatric Symptoms Stated complaint: Anxiety, Abd Pain, Mental Health Time Seen by Provider: 03/06/19 14:58 - History of Present Illness Initial comments: Patient is a 33-year-old male presents emergency department today with onset of anxiety. He states that he's been having episodes of nausea and vomiting also complaining of some lower abdominal pain and diarrhea. He reports his history of IV associated with anxiety. Patient reports he's been admitted multiple times within the past month or so to [facility] for hyperkalemia related to his nausea vomiting. He's never had a specific reason to why this is been caused. Patient denies any fevers at this time. He does state that he was recently switched on his psychiatric medications. He states that seems to be causing some increase in suicidal thoughts. He reports he's had multiple plans but denies any specific complaints to me at this time. (Malika Charles) - Related Data Home Medications Medication Instructions Recorded Confirmed Ondansetron HCl [Zofran] 8 mg PO Q8H PRN 04/09/18 03/06/19 Dicyclomine [Bentyl] 20 mg PO QID 03/06/19 03/06/19 Ibuprofen [Motrin Ib] 800 mg PO Q6H PRN 03/06/19 03/06/19 Sertraline [Zoloft] 100 mg PO DAILY 03/06/19 03/06/19 busPIRone HCl [Buspar] 10 mg PO BID 03/06/19 03/06/19 Allergies Allergy/AdvReac Type Severity Reaction Status Date / Time amoxicillin [From Augmentin] Allergy Unknown Verified 03/06/19 15:11 carbinoxamine maleate Allergy Rash/Hives Verified 03/06/19 15:11 [From Rondec] clavulanic acid Allergy Unknown Verified 03/06/19 15:11 [From Augmentin] pseudoephedrine HCl Allergy Rash/Hives Verified 03/06/19 15:11 [From Rondec] sulfamethoxazole Allergy Vomiting Verified 03/06/19 15:11 [From Bactrim] trimethoprim [From Bactrim] Allergy Vomiting Verified 03/06/19 15:11 prochlorperazine AdvReac Unknown Verified 03/06/19 15:11 [From Compazine] Review of Systems ROS Other: All systems not noted in ROS Statement are negative. <Malika Charles - Last Filed: 03/06/19 17:25> ROS Other: All systems not noted in ROS Statement are negative. <Jeanmarie Gamble - Last Filed: 03/06/19 21:04> ROS Other: All systems not noted in ROS Statement are negative. <Luis Enrique Hernandez - Last Filed: 03/06/19 22:15> ROS Statement: Those systems with pertinent positive or pertinent negative responses have been documented in the HPI. Past Medical History Past Medical History: GERD/Reflux, Musculoskeletal Disorder Additional Past Medical History / Comment(s): LT KNEE GIVES OUT AT TIMES- NO SPECIFIC INJURY carpel tunnel and ibs , colitis, diverticulosis History of Any Multi-Drug Resistant Organisms: None Reported, MRSA Date of last positivie culture/infection: 2016 MDRO Source:: abdomen Past Surgical History: Hernia Repair, Orthopedic Surgery Additional Past Surgical History / Comment(s): colonscopy pilonODIal cyst Past Anesthesia/Blood Transfusion Reactions: No Reported Reaction Additional Past Anesthesia/Blood Transfusion Reaction / Comment(s): PT HAS NEVER HAD SURGERY Past Psychological History: Anxiety, Depression Smoking Status: Former smoker Past Alcohol Use History: None Reported Past Drug Use History: Marijuana - Past Family History Mother Family Medical History: Cancer Additional Family Medical History / Comment(s): BREAST,CERVICAL & COLON CA Father Family Medical History: Hypertension Additional Family Medical History / Comment(s): HYDROCEPHALIS,SEIZURE DISORDER, ADRENOLEUKODYSTROPHY <Malika Charles - Last Filed: 03/06/19 17:25> General Exam Limitations: no limitations General appearance: alert, in no apparent distress Head exam: Present: atraumatic, normocephalic, normal inspection Eye exam: Present: normal appearance, PERRL, EOMI. Absent: scleral icterus, conjunctival injection, periorbital swelling ENT exam: Present: normal exam, mucous membranes moist Neck exam: Present: normal inspection. Absent: tenderness, meningismus, lymphadenopathy Respiratory exam: Present: normal lung sounds bilaterally. Absent: respiratory distress, wheezes, rales, rhonchi, stridor Cardiovascular Exam: Present: regular rate, normal rhythm, normal heart sounds. Absent: systolic murmur, diastolic murmur, rubs, gallop, clicks GI/Abdominal exam: Present: soft, tenderness (epigastric), normal bowel sounds. Absent: distended, guarding, rebound, rigid Extremities exam: Present: normal inspection, full ROM, normal capillary refill. Absent: tenderness, pedal edema, joint swelling, calf tenderness Back exam: Present: normal inspection Neurological exam: Present: alert, oriented X3, CN II-XII intact Psychiatric exam: Present: normal affect Skin exam: Present: warm, dry, intact, normal color. Absent: rash <Malika Charles - Last Filed: 03/06/19 17:25> - General Exam Comments Initial Comments: Anxious 33-year-old male. (Malika Charles) Course Vital Signs 03/06/19 03/06/19 14:51 21:29 Temperature 98.1 F 97.5 F L Pulse Rate 125 H 94 Respiratory 18 18 Rate Blood Pressure 141/102 154/107 O2 Sat by Pulse 97 99 Oximetry Medical Decision Making - Lab Data Result diagrams: 03/06/19 15:49 03/06/19 15:49 - Radiology Data Radiology results: report reviewed <Malika Charles - Last Filed: 03/06/19 17:25> - Lab Data Result diagrams: 03/06/19 15:49 03/06/19 15:49 <Jeanmarie Gamble - Last Filed: 03/06/19 21:04> - Lab Data Result diagrams: 03/06/19 15:49 03/06/19 15:49 <Luis Enrique Hernandez - Last Filed: 03/06/19 22:15> - Medical Decision Making 33-year-old male presents emergency room to tingling anxiety, suicidal ideations. He also complained of some abdominal pain, chronic nausea and vomiting. Patient at this time was given IV fluids labwork obtained. Laboratory was reviewed to be unremarkable. Mild leukocytosis but this is likely a reaction to vomiting. He states he has had some crampy and burning abdominal pain. He has no focal tenderness on exam. Patient is afebrile this time. Patient was given 1 mg of IV Ativan to help with some symptoms of anxiety. Patient did report suicidal ideation, but denies any specific plan to me. Patient will be medically clear and evaluated EPS. Patient's case discussed with Dr. Gamble. (Malika Charles) Dr. Chairez be taking over the care of this patient at 9:00 (Jeanmarie Gamble) I was informed by nursing staff that the patient was not tolerating any oral intake. The patient also was continued to have active vomiting. He had r eceived a number of IV antiemetics. The patient be admitted to have GI consultation regarding possibility of Crohn's disease which was observed on his MR. Also for symptom management and to have the psychiatric consultation. (Luis Enrique Hernandez) - Lab Data Lab Results 03/06/19 03/06/19 Range/Units 15:49 15:49 WBC 13.3 H (3.8-10.6) k/uL RBC 5.16 (4.30-5.90) m/uL Hgb 16.3 (13.0-17.5) gm/dL Hct 47.3 (39.0-53.0) % MCV 91.6 (80.0-100.0) fL MCH 31.7 (25.0-35.0) pg MCHC 34.6 (31.0-37.0) g/dL RDW 14.4 (11.5-15.5) % Plt Count 380 (150-450) k/uL Neutrophils % 79 % Lymphocytes % 11 % Monocytes % 8 % Eosinophils % 1 % Basophils % 1 % Neutrophils # 10.4 H (1.3-7.7) k/uL Lymphocytes # 1.5 (1.0-4.8) k/uL Monocytes # 1.0 (0-1.0) k/uL Eosinophils # 0.1 (0-0.7) k/uL Basophils # 0.2 (0-0.2) k/uL Sodium 139 (137-145) mmol/L Potassium 4.2 (3.5-5.1) mmol/L Chloride 106 (98-107) mmol/L Carbon Dioxide 22 (22-30) mmol/L Anion Gap 11 mmol/L BUN 5 L (9-20) mg/dL Creatinine 0.83 (0.66-1.25) mg/dL Est GFR (CKD-EPI)AfAm >90 (>60 ml/min/1.73 sqM) Est GFR (CKD-EPI)NonAf >90 (>60 ml/min/1.73 sqM) Glucose 105 H (74-99) mg/dL Calcium 10.0 (8.4-10.2) mg/dL 03/06/19 16:23 EKG shows evidence of sinus tachycardia, left posterior fascicular block. Abnormal EKG. Ventricular rate 160 bpm. Pulse 1:30 most seconds. Frustration is 80 ms. QT QTc is 3:30/469 ms. (Malika Charles) - Radiology Data Normal chest x-ray. No changes. No acute abdomen. No changes. (Malika Charles) Disposition <Malika Charles - Last Filed: 03/06/19 17:25> <Jeanmarie Gamble - Last Filed: 03/06/19 21:04> Is patient prescribed a controlled substance at d/c from ED?: No <Luis Enrique Hernandez - Last Filed: 03/06/19 22:15> Clinical Impression: Acute anxiety, Intractable vomiting Disposition: ADMITTED IP TO THIS HOSP Condition: Fair Referrals: Pao Clarke MD [Primary Care Provider] - 1-2 days
[2019-03-06 16:02] LABS: Basophils # (A) 0.2 k/uL (0-0.2); Basophils % (A) 1 %; Eosinophils # (A) 0.1 k/uL (0-0.7); Eosinophils % (A) 1 %; HCT 47.3 % (39.0-53.0); HGB 16.3 gm/dL (13.0-17.5); Lymphocytes # (A) 1.5 k/uL (1.0-4.8); Lymphocytes % (A) 11 %; MCH 31.7 pg (25.0-35.0); MCHC 34.6 g/dL (31.0-37.0); MCV 91.6 fL (80.0-100.0); Mean Platelet Volume 6.6; Monocytes % (A) 8 %; Neutrophils # (A) 10.4 k/uL (1.3-7.7); Neutrophils % (A) 79 %; Platelet Count 380 k/uL (150-450); RBC 5.16 m/uL (4.30-5.90); RDW 14.4 % (11.5-15.5); WBC 13.3 k/uL (3.8-10.6)
[2019-03-06 16:12] LABS: African American GFR (CKD) >90 (>60 ml/min/1.73 sqM); Anion Gap 11 mmol/L; Blood Urea Nitrogen 5 mg/dL (9-20); Carbon Dioxide 22 mmol/L (22-30); Chloride 106 mmol/L (98-107); Glucose 105 mg/dL (74-99); Potassium 4.2 mmol/L (3.5-5.1); Sodium 139 mmol/L (137-145)
[2019-03-06] MEDS ORDERED: ONDANSETRON 4 MG/2 ML VIAL IVP STA ×2 (16:43→21:22)
--- NOTE | 2019-03-06 16:50 | XR ---
EXAMINATION TYPE: XR chest 2V DATE OF EXAM: 03/06/2019 COMPARISON: 04/29/2018 HISTORY: Syncope TECHNIQUE: Frontal and lateral views of the chest are obtained. FINDINGS: Heart and mediastinum are normal. Lungs are clear. Diaphragm is normal. Bony thorax appear s normal. IMPRESSION: Normal chest. No change.
--- NOTE | 2019-03-06 16:53 | XR ---
EXAMINATION TYPE: XR KUB DATE OF EXAM: 03/06/2019 COMPARISON: NONE HISTORY: Abdominal pain TECHNIQUE: 2 views upright FINDINGS: There is no sign of intestinal obstruction or pneumoperitoneum. Fecal pattern is normal. Kaela ng bases are clear. There are no pathologic calcifications. There is no evidence of a mass. IMPRESSION: Nonacute abdomen. No change.
[2019-03-06] MEDS ORDERED: DICYCLOMINE 20 MG TAB PO STA (17:31)
[2019-03-06] MEDS ORDERED: KETOROLAC 30 MG/ML 1 ML VIAL IVP STA (21:43)
[2019-03-06] MEDS ORDERED: METOCLOPRAMIDE 5 MG/ML 2 ML VIAL IVP STA (21:45)
[2019-03-06] MEDS ORDERED: NALOXONE 0.4 MG/ML 1 ML VIAL IV PRN (22:10)
[2019-03-06] MEDS ORDERED: MORPHINE SULFATE 4 MG/ML SYRINGE IV STA (22:23)
[2019-03-06] MEDS: SODIUM CHLORIDE 0.9% 1,000 ML IV SCH (22:29)
[2019-03-06] MEDS: METOCLOPRAMIDE 5 MG/ML 2 ML VIAL IVP SCH (23:10)
[2019-03-06] MEDS ORDERED: HYDROmorphone 0.5 MG/0.5 ML SYRINGE IVP STA (23:28)
[2019-03-07] MEDS ORDERED: HYDROmorphone 0.5 MG/0.5 ML SYRINGE IVP STA (00:43)
[2019-03-07] MEDS ORDERED: ONDANSETRON 4 MG/2 ML VIAL IVP STA (01:37)
[2019-03-07 03:22] VITALS: BMI 24.9
[2019-03-07] MEDS ORDERED: ACETAMINOPHEN TAB 325 MG TAB PO PRN (03:27)
[2019-03-07] MEDS ORDERED: KETOROLAC 30 MG/ML 1 ML VIAL IVP STA (03:28)
[2019-03-07] MEDS ORDERED: IBUPROFEN 400 MG TAB PO PRN (03:29)
[2019-03-07] MEDS ORDERED: ONDANSETRON 4 MG TAB PO PRN (03:29)
[2019-03-07] MEDS: METOCLOPRAMIDE 5 MG/ML 2 ML VIAL IVP SCH ×4 (04:10→22:52)
[2019-03-07] MEDS: SODIUM CHLORIDE 0.9% 1,000 ML IV SCH ×3 (05:58→21:41)
[2019-03-07] MEDS: ONDANSETRON 4 MG/2 ML VIAL IVP PRN ×2 (07:02→20:02)
[2019-03-07] MEDS: busPIRone HCl 10 MG TAB PO SCH ×2 (07:31→21:42)
[2019-03-07] MEDS: SERTRALINE 100 MG TAB PO SCH (07:31)
[2019-03-07] MEDS: DICYCLOMINE 20 MG TAB PO SCH ×4 (07:31→22:51)
[2019-03-07] MEDS: ALPRAZolam 0.5 MG TAB PO PRN (08:01)
[2019-03-07] MEDS ORDERED: FAMOTIDINE 20 MG/2 ML VIAL IV SCH (09:00)
[2019-03-07] MEDS ORDERED: MORPHINE SULFATE 4 MG/ML SYRINGE IVP PRN (14:37)
[2019-03-07] MEDS ORDERED: IBUPROFEN 800 MG TAB PO PRN (14:38)
--- NOTE | 2019-03-07 14:40 | P.HPIM ---
History of Present Illness This is a pleasant 53 years old male with past medical history of GERD, diverticulosis and irritable bowel syndrome. Presents with intractable nausea and vomiting. Patient states that he has abdominal pain in the right lower quad rant and across lower abdomen for the last 3-4 days associated with intractable vomiting every 1-2 hours with some of blood or coffee ground vomitus in its. He has some loose stools over the last 3 days but is better when he had a bowel movement about 2 hours ago. No blood in his stool. Patient also complained from anxiety that given him chest tightness and discomfort, patient states that his PCP Dr. Fisher used to give him BuSpar and other medications. Vitals his stable. Labs showing mild leukocytosis of 13.3 K, BMP was unremarkable. EKG showing sinus tachycardia at 116, with no significant ST-T changes, KUB showing no acute abdomen. Chest x-ray: No acute process. In the emergency room he received hydration, and several medications including Zofran, Ativan, Bentyl, Toradol and Reglan. Also received morphine and Dilaudid GI team is already been consulted for intractable vomiting. And psychiatrist has been consulted for anxiety Review of Systems CONSTITUTIONAL: No fever, no malaise, no fatigue. HEENT: No recent visual problems or hearing problems. Denied any sore throat. CARDIOVASCULAR: No orthopnea, PND, no palpitations, no syncope. PULMONARY: No shortness of breath, no cough, no hemoptysis. GASTROINTESTINAL: No diarrhea, no nausea, no vomiting, no abdominal pain. Normoactive bowel sounds. NEUROLOGICAL: No headaches, no weakness, no numbness. HEMATOLOGICAL: Denies any bleeding or petechiae. GENITOURINARY: Denies any burning micturition, frequency, or urgency. MUSCULOSKELETAL/RHEUMATOLOGICAL: Denies any joint pain, swelling, or any muscle pain. ENDOCRINE: Denies any polyuria or polydipsia. Past Medical History Past Medical History: GERD/Reflux, Musculoskeletal Disorder Additional Past Medical History / Comment(s): LT KNEE GIVES OUT AT TIMES- NO SPECIFIC INJURY carpel tunnel and ibs , colitis, diverticulosis History of Any Multi-Drug Resistant Organisms: None Reported, MRSA Date of last positivie culture/infection: 2016 MDRO Source:: abdomen Past Surgical History: Hernia Repair, Orthopedic Surgery Additional Past Surgical History / Comment(s): colonscopy pilonODIal cyst Past Anesthesia/Blood Transfusion Reactions: No Reported Reaction Additional Past Anesthesia/Blood Transfusion Reaction / Comment(s): PT HAS NEVER HAD SURGERY Past Psychological History: Anxiety, Depression Additional Psychological History / Comment(s): TX A TEEN- NO RX NOW Smoking Status: Never smoker Past Alcohol Use History: None Reported Past Drug Use History: Marijuana Additional Drug Use History / Comment(s): MEDICAL MARIJUANA 1-2 X A WEEK - Past Family History Mother Family Medical History: Cancer Additional Family Medical History / Comment(s): BREAST,CERVICAL & COLON CA Father Family Medical History: Hypertension Additional Family Medical History / Comment(s): HYDROCEPHALIS,SEIZURE DISORDER, ADRENOLEUKODYSTROPHY Medications and Allergies Home Medications Medication Instructions Recorded Confirmed Type Ondansetron HCl [Zofran] 8 mg PO Q8H PRN 04/09/18 03/06/19 History Dicyclomine [Bentyl] 20 mg PO QID 03/06/19 03/06/19 History Ibuprofen [Motrin Ib] 800 mg PO Q6H PRN 03/06/19 03/06/19 History Sertraline [Zoloft] 100 mg PO DAILY 03/06/19 03/06/19 History busPIRone HCl [Buspar] 10 mg PO BID 03/06/19 03/06/19 History Allergies Allergy/AdvReac Type Severity Reaction Status Date / Time amoxicillin [From Augmentin] Allergy Unknown Verified 03/06/19 15:11 carbinoxamine maleate Allergy Rash/Hives Verified 03/06/19 15:11 [From Rondec] clavulanic acid Allergy Unknown Verified 03/06/19 15:11 [From Augmentin] pseudoephedrine HCl Allergy Rash/Hives Verified 03/06/19 15:11 [From Rondec] sulfamethoxazole Allergy Vomiting Verified 03/06/19 15:11 [From Bactrim] trimethoprim [From Bactrim] Allergy Vomiting Verified 03/06/19 15:11 prochlorperazine AdvReac Unknown Verified 03/06/19 15:11 [From Compazine] Physical Exam Vitals: Vital Signs Temp Pulse Pulse Resp BP BP Pulse Ox 03/07/19 11:55 97.2 F L 71 18 159/95 99 03/07/19 05:00 97.7 F 63 16 147/85 98 03/07/19 03:20 97.5 F L 63 16 157/92 98 03/07/19 01:07 158/99 03/07/19 01:00 67 18 99 03/06/19 23:13 96.8 F L 78 18 152/99 99 03/06/19 22:32 159/95 03/06/19 21:29 97.5 F L 94 18 154/107 99 03/06/19 14:51 98.1 F 125 H 18 141/102 97 Intake and Output 03/06/19 03/07/19 03/07/19 22:59 06:59 14:59 Intake Total 300 Balance 300 Intake: Intake, IV Titration 300 Amount Sodium Chloride 0.9% 1, 300 000 ml @ 150 mls/hr IV . Q6H40M [facility] Rx#:[id number] Other: Voiding Method Toilet Urinal # Bowel Movements 1 Weight 92.986 kg GENERAL: The patient is alert and oriented x3, not in any acute distress. Well developed, well nourished. HEENT: Pupils are round and equally reacting to light. EOMI. No scleral icterus. No conjunctival pallor. Normocephalic, atraumatic. No pharyngeal erythema. No thyromegaly. CARDIOVASCULAR: S1 and S2 present. No murmurs, rubs, or gallops. PULMONARY: Chest is clear to auscultation, no wheezing or crackles. -ABDOMEN: Soft, right lower quadrant tenderness with no rebound tenderness, nondistended, normoactive bowel sounds. No palpable organomegaly. MUSCULOSKELETAL: No joint swelling or deformity. EXTREMITIES: No cyanosis, clubbing, or pedal edema. NEUROLOGICAL: Gross neurological examination did not reveal any focal deficits. SKIN: No rashes. No petechiae Results CBC & Chem 7: 03/06/19 15:49 03/06/19 15:49 Labs: Abnormal Lab Results - Last 24 Hours (Table) 03/06/19 03/06/19 Range/Units 15:49 15:49 WBC 13.3 H (3.8-10.6) k/uL Neutrophils # 10.4 H (1.3-7.7) k/uL BUN 5 L (9-20) mg/dL Glucose 105 H (74-99) mg/dL Thrombosis Risk Factor Assmnt - Choose All That Apply Any of the Below Risk Factors Present?: No Assessment and Plan Assessment: Nausea and vomiting, with possible blood in the vomiting Abdominal pain in the lower abdomen and right lower quadrant. Anxiety GERD Irritable bowel syndrome History of diverticulosis Plan: This is a pleasant 53 years old male who presents with continuous nausea and vomiting is difficult to treat. Continue with parenteral hydration. Continue with antiemetics. Follow-up recommendations of GI and an psychiatrist. Pain management. We'll check occult blood in the vomitus. We'll check iron studies Labs and medication were reviewed.. Continue same treatment. Continue with symptomatic treatment. Resume home medication. Monitor lytes and vitals. DVT and GI prophylaxis. Further recommendations of the clinical course of the patient DVT prophylaxis: Subcutaneous heparin GI Prophylaxis: Protonix Prognosis is guarded
[2019-03-07 14:48] LABS: Appearance,Urine Clear (Clear); Bilirubin,Urine Negative (Negative); Blood,Urine Negative (Negative); Color,Urine Yellow; Glucose,Urine (UA) 2+ (Negative); Leukocyte Esterase,Urine Negative (Negative); Nitrite,Urine Negative (Negative); Protein,Urine Negative (Negative); Specific Gravity,Urine 1.014 (1.001-1.035); Urobilinogen,Urine <2.0 mg/dL (<2.0)
[2019-03-07 15:15] LABS: Basophils # (A) 0.1 k/uL (0-0.2); Basophils % (A) 0 %; Eosinophils # (A) 0.1 k/uL (0-0.7); Eosinophils % (A) 0 %; HCT 42.7 % (39.0-53.0); HGB 14.3 gm/dL (13.0-17.5); Lymphocytes # (A) 1.5 k/uL (1.0-4.8); Lymphocytes % (A) 10 %; MCH 31.3 pg (25.0-35.0); MCHC 33.4 g/dL (31.0-37.0); MCV 93.7 fL (80.0-100.0); Mean Platelet Volume 6.8; Monocytes # (A) 0.9 k/uL (0-1.0); Monocytes % (A) 6 %; Neutrophils % (A) 83 %; Platelet Count 359 k/uL (150-450); RBC 4.55 m/uL (4.30-5.90); RDW 14.5 % (11.5-15.5); WBC 15.6 k/uL (3.8-10.6)
[2019-03-07 15:18] LABS: Ketones,Urine 2+ (Negative)
[2019-03-07] MEDS: PANTOPRAZOLE 40 MG/10 ML VIAL IVP SCH (15:24)
[2019-03-07 15:29] LABS: ALT 26 U/L (21-72); AST 19 U/L (17-59); African American GFR (CKD) >90 (>60 ml/min/1.73 sqM); Albumin 4.2 g/dL (3.5-5.0); Alkaline Phosphatase 73 U/L (38-126); Anion Gap 10 mmol/L; Bilirubin,Unconjugated 0.4 mg/dL (0.0-1.1); Blood Urea Nitrogen 8 mg/dL (9-20); Calcium 9.3 mg/dL (8.4-10.2); Carbon Dioxide 21 mmol/L (22-30); Chloride 109 mmol/L (98-107); Glucose 119 mg/dL (74-99); Magnesium 2.1 mg/dL (1.6-2.3); Potassium 3.9 mmol/L (3.5-5.1); Sodium 140 mmol/L (137-145); Total Bilirubin 0.4 mg/dL (0.2-1.3); Total Protein 6.9 g/dL (6.3-8.2)
[2019-03-07 19:02] LABS: Iron Saturation 13.33 (15.00-50.00)
[2019-03-07] MEDS ORDERED: HEPARIN SODIUM,PORCINE 5,000 UNIT/ML 1 ML VIAL SQ SCH (21:00)
[2019-03-07] MEDS: MORPHINE SULFATE 4 MG/ML SYRINGE IVP PRN (21:02)
[2019-03-07] MEDS: LEVOFLOXACIN 500MG-D5W PMX 500 MG in DEXTROSE/WATER 1 100ML.BAG IVPB SCH (21:41)
[2019-03-07] MEDS: FAMOTIDINE 20 MG TAB PO SCH (21:42)
--- NOTE | 2019-03-07 22:44 | CONS ---
CONSULTATION DATE OF SERVICE: 03/07/2019 REASON FOR CONSULTATION: Nausea, vomiting and abdominal pain. HISTORY OF PRESENT ILLNESS: The patient is a 33-year-old pleasant white male who was admitted to the hospital because of intractable nausea, vomiting and abdominal pain that started about 3 to 4 days ago. He had at least 10 to 15 episodes of emesis, and towards the tail end he had some coffee-ground emesis. He also started having abdominal discomfort, mostly in the lower abdominal area and the right lower quadrant area associated with frequent bowel movements. He was diagnosed with GERD and irritable bowel syndrome in the past. He was recently started on Bentyl and Levsin and his symptoms were gradually improving. He saw his psychiatrist on an outpatient basis and was started on Zoloft and BuSpar. Recently the Zoloft dose was increased, and since then he started having the GI symptoms. He was seen by Dr. Avila in the past and had an upper endoscopy done a year ago that showed gastritis. PAST MEDICAL HISTORY: Past medical history is significant for: 1. Anxiety. 2. Depression. 3. Gastroesophageal reflux disease. PAST SURGICAL HISTORY: 1. Hernia repair. 2. Pilonidal cyst removal. MEDICATIONS: Medications at home include: 1. Zofran. 2. Bentyl. 3. Motrin. 4. Zoloft. 5. BuSpar. ALLERGIES: 1. AUGMENTIN. 2. BACTRIM. 3. COMPAZINE. SOCIAL HISTORY: No smoking. No alcohol use. FAMILY HISTORY: Mother with breast cancer. Father with seizure disorder. REVIEW OF SYSTEMS: CARDIOPULMONARY: No chest pain or shortness of breath. GENITOURINARY: No dysuria or hematuria. MUSCULOSKELETAL: Unremarkable. SKIN: Unremarkable. ENDOCRINE: Unremarkable. PSYCHIATRIC: Unremarkable. NEUROLOGY: Unremarkable. ENT/VISION: Unremarkable. CONSTITUTIONAL: No recent weight loss. No fever, chills, night sweats. PHYSICAL EXAMINATION: He appears comfortable. No apparent distress. VITAL SIGNS: Stable. Blood pressure is 159/95, pulse rate 71, temperature 97.2. HEENT examination unremarkable. Conjunctivae pink. Sclerae anicteric. Oral cavity no lesions. NECK: No JVD or lymph node enlargement. CHEST: Clear to auscultation. HEART: Regular rate and rhythm. ABDOMEN: Soft. It was non-tender, non-distended. Bowel sounds are positive. No organomegaly. EXTREMITIES: No pedal edema. SKIN: No rashes. NEUROLOGIC: Alert and oriented x3. No focal deficits. LABS: Labs done at the time of admission to the hospital showed WBC 15.6, hemoglobin 14.3, platelets normal. Basic metabolic panel was within normal limits. ALT, AST, T- bilirubin and alkaline phosphatase are normal. IMPRESSION: 1. Intractable nausea and vomiting for the last 3 to 4 days' duration. 2. 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 Since the patient has been in the hospital, no further episodes of emesis. He continues to have persistent nausea. He did have an upper endoscopy done by Dr. Avila a year ago that showed some gastritis. 3. History of irritable bowel syndrome. 4. Anxiety and depression. RECOMMENDATIONS: 1. Continue with IV Protonix and antiemetics as needed. 2. Clear liquid diet. 3. Because of the coffee-ground emesis, I told the patient that we will continue to observe him closely, and no need for any endoscopic intervention at the present time. 4. CBC in the morning. Will follow with you closely during his hospital stay. Thank you for this consultation. MMMAYRAL / RAINAN: [id number] /
[2019-03-07] MEDS: metroNIDAZOLE-NS PMX 500 MG in SALINE 1 100ML.BAG IVPB SCH (22:51)
[2019-03-08] MEDS: MORPHINE SULFATE 4 MG/ML SYRINGE IVP PRN ×2 (01:42→05:29)
[2019-03-08] MEDS: ONDANSETRON 4 MG/2 ML VIAL IVP PRN ×3 (01:46→23:02)
[2019-03-08] MEDS: METOCLOPRAMIDE 5 MG/ML 2 ML VIAL IVP SCH ×4 (04:27→21:55)
[2019-03-08] MEDS: SODIUM CHLORIDE 0.9% 1,000 ML IV SCH ×3 (06:18→13:55)
[2019-03-08] MEDS: metroNIDAZOLE-NS PMX 500 MG in SALINE 1 100ML.BAG IVPB SCH ×3 (06:20→21:54)
[2019-03-08 07:48] LABS: Basophils # (A) 0.2 k/uL (0-0.2); Basophils % (A) 1 %; Eosinophils # (A) 0.1 k/uL (0-0.7); Eosinophils % (A) 1 %; HCT 40.6 % (39.0-53.0); HGB 13.9 gm/dL (13.0-17.5); Lymphocytes # (A) 1.7 k/uL (1.0-4.8); Lymphocytes % (A) 12 %; MCH 32.2 pg (25.0-35.0); MCHC 34.2 g/dL (31.0-37.0); MCV 94.2 fL (80.0-100.0); Mean Platelet Volume 6.5; Monocytes # (A) 1.2 k/uL (0-1.0); Monocytes % (A) 9 %; Neutrophils # (A) 10.7 k/uL (1.3-7.7); Neutrophils % (A) 75 %; Platelet Count 317 k/uL (150-450); RBC 4.31 m/uL (4.30-5.90); RDW 12.8 % (11.5-15.5); WBC 14.2 k/uL (3.8-10.6)
[2019-03-08 08:07] LABS: ALT 30 U/L (21-72); AST 19 U/L (17-59); African American GFR (CKD) >90 (>60 ml/min/1.73 sqM); Albumin 3.6 g/dL (3.5-5.0); Alkaline Phosphatase 56 U/L (38-126); Anion Gap 8 mmol/L; Bilirubin, Delta 0.2 mg/dL (0.0-0.2); Bilirubin,Unconjugated 0.3 mg/dL (0.0-1.1); Blood Urea Nitrogen 8 mg/dL (9-20); Calcium 8.9 mg/dL (8.4-10.2); Carbon Dioxide 25 mmol/L (22-30); Chloride 107 mmol/L (98-107); Glucose 88 mg/dL (74-99); Potassium 4.2 mmol/L (3.5-5.1); Sodium 140 mmol/L (137-145); Total Bilirubin 0.5 mg/dL (0.2-1.3); Total Protein 6.1 g/dL (6.3-8.2)
--- NOTE | 2019-03-08 08:19 | P.PN ---
Subjective This is a pleasant 53 years old male with past medical history of GERD, diverticulosis and irritable bowel syndrome. Presents with intractable nausea and vomiting. Patient states that he has abdominal pain in the right lower quadrant and across lower abdomen for the last 3-4 days associated with intractable vomiting every 1-2 hours with some of blood or coffee ground vomitus in its. He has some loose stools over the last 3 days but is better when he had a bowel movement about 2 hours ago. No blood in his stool. Patient also complained from anxiety that given him chest tightness and discomfort, patient states that his PCP Dr. Fisher used to give him BuSpar and other medications. Vitals his stable. Labs showing mild leukocytosis of 13.3 K, BMP was unremarkable. EKG showing sinus tachycardia at 116, with no significant ST-T changes, KUB showing no acute abdomen. Chest x-ray: No acute process. In the emergency room he received hydration, and several medications including Zofran, Ativan, Bentyl, Toradol and Reglan. Also received morphine and Dilaudid GI team is already been consulted for intractable vomiting. And psychiatrist has been consulted for anxiety 03/08/2019 Patient was admitted with intractable nausea vomiting which could be multifactorial from his history of irritable bowel syndrome, elements of gastroenteritis with possible infection and substance abuse including marijuana plus anxiety. Patient this morning is still have nausea vomiting, he has some hematemesis probably from Clarisse Zaira syndrome from recurrent nausea vomiting. He is still nothing by mouth and can not tolerate foods now. Start diet when patient is more readily. He had loose bowel movement yesterday afternoon and nothing since then. He still have abdominal pain in the lower abdomen below her right side, about 6/10 in severity, patient improves with morphine which he says it helps him. Patient remains on antiemetics including Zofran and Reglan, continue with antibiotics for now. still showing a leukocytosis of 14.2 K, electrolytes and potassium are within normal. No fever. GI input is appreciated, no recommendation for scope currently as patient had scope last year. There is a sitter at bedside for his psych history and psychiatrist going to evaluate the patient Review of systems CONSTITUTIONAL: No fever, no malaise, no fatigue. HEENT: No recent visual problems or hearing problems. Denied any sore throat. CARDIOVASCULAR: No orthopnea, PND, no palpitations, no syncope. PULMONARY: No shortness of breath, no cough, no hemoptysis. GASTROINTESTINAL: Normoactive bowel sounds. NEUROLOGICAL: No headaches, no weakness, no numbness. HEMATOLOGICAL: Denies any bleeding or petechiae. GENITOURINARY: Denies any burning micturition, frequency, or urgency. MUSCULOSKELETAL/RHEUMATOLOGICAL: Denies any joint pain, swelling, or any muscle pain. ENDOCRINE: Denies any polyuria or polydipsia. Active Medications Generic Name Dose Route Start Last Admin Trade Name Freq PRN Reason Stop Dose Admin Acetaminophen 650 mg 03/07/19 03:27 Tylenol Tab PO Q6HR PRN Fever and/ or Pain Alprazolam 0.5 mg 03/07/19 07:33 03/07/19 08:01 Xanax PO 0.5 mg BID PRN Administration Anxiety Buspirone HCl 10 mg 03/07/19 09:00 03/07/19 21:42 Buspar PO 10 mg BID [facility] Administration Dicyclomine HCl 20 mg 03/07/19 09:00 03/07/19 22:51 Bentyl PO 20 mg QID [facility] Administration Famotidine 20 mg 03/07/19 21:00 03/07/19 21:42 Pepcid PO 20 mg BID [facility] Administration Sodium Chloride 1,000 mls @ 150 mls/hr 03/06/19 22:15 03/08/19 06:18 Saline 0.9% IV 150 mls/hr .Q6H40M [facility] Administration Metronidazole 500 mg/ IV 100 mls @ 100 mls/hr 03/07/19 22:00 03/08/19 06:20 Solution IVPB 100 mls/hr Q8H [facility] Administration Levofloxacin 500 mg/ IV 100 mls @ 100 mls/hr 03/07/19 21:00 03/07/19 21:41 Solution IVPB 100 mls/hr Q24H [facility] Administration Metoclopramide HCl 10 mg 03/06/19 22:30 03/08/19 04:27 Reglan IVP 10 mg Q6H [facility] Administration Morphine Sulfate 4 mg 03/07/19 20:50 03/08/19 05:29 Morphine Sulfate (Inj) IVP 4 mg Q4HR PRN Administration SEVERE Pain Naloxone HCl 0.2 mg 03/06/19 22:10 Narcan IV Q2M PRN Opioid Reversal Ondansetron HCl 8 mg 03/07/19 03:29 Zofran PO Q8H PRN Nausea Ondansetron HCl 4 mg 03/07/19 03:40 03/08/19 01:46 Zofran IVP 4 mg Q6HR PRN Administration Nausea And Vomiting Pantoprazole Sodium 40 mg 03/07/19 14:45 03/07/19 15:24 Protonix IVP 40 mg DAILY [facility] Administration Sertraline HCl 100 mg 03/07/19 09:00 03/07/19 07:31 Zoloft PO 100 mg DAILY [facility] Administration Objective - Vital Signs Vital signs: Vital Signs Temp 98.2 F 03/08/19 05:00 Pulse 81 03/08/19 05:00 Resp 18 03/08/19 05:00 BP 122/66 03/08/19 05:00 Pulse Ox 98 03/08/19 05:00 Intake & Output 03/07/19 03/08/19 03/08/19 18:59 06:59 18:59 Intake Total 1200 1850 Output Total 300 Balance 900 1850 Weight 92.986 kg Intake: Intake, IV Titration 1200 1850 Amount Levofloxacin 500Mg-D5w 100 Pmx 500 mg In Dextrose/ Water 1 100ml.bag @ 100 mls/hr IVPB Q24H [facility] Rx#: [id number] Sodium Chloride 0.9% 1, 1200 1650 000 ml @ 150 mls/hr IV . Q6H40M [facility] Rx#:[id number] metroNIDAZOLE-NS PMX 500 100 mg In Saline 1 100ml.bag @ 100 mls/hr IVPB Q8H [facility] Rx#:[id number] Output: Urine 300 Other: Voiding Method Toilet Urinal # Voids 1 # Bowel Movements 1 - Exam GENERAL: The patient is alert and oriented x3, not in any acute distress. Well developed, well nourished. HEENT: Pupils are round and equally reacting to light. EOMI. No scleral icterus. No conjunctival pallor. Normocephalic, atraumatic. No pharyngeal erythema. No thyromegaly. CARDIOVASCULAR: S1 and S2 present. No murmurs, rubs, or gallops. PULMONARY: Chest is clear to auscultation, no wheezing or crackles. -ABDOMEN: Soft, right lower quadrant and suprapubic tenderness , similar to yesterday and less severe, with no rebound tenderness, nondistended, normoactive bowel sounds. No palpable organomegaly. MUSCULOSKELETAL: No joint swelling or deformity. EXTREMITIES: No cyanosis, clubbing, or pedal edema. NEUROLOGICAL: Gross neurological examination did not reveal any focal deficits. SKIN: No rashes. No petechiae - Labs CBC & Chem 7: 03/08/19 06:41 03/08/19 06:41 Labs: Abnormal Lab Results - Last 24 Hours (Table) 03/07/19 03/07/19 03/07/19 Range/Units 14:26 14:59 14:59 WBC 15.6 H (3.8-10.6) k/uL Neutrophils # 13.0 H (1.3-7.7) k/uL Monocytes # (0-1.0) k/uL Chloride 109 H (98-107) mmol/L Carbon Dioxide 21 L (22-30) mmol/L BUN 8 L (9-20) mg/dL Creatinine 0.64 L (0.66-1.25) mg/dL Glucose 119 H (74-99) mg/dL Iron (65-175) ug/dL Iron Saturation (15.00-50.00) Total Protein (6.3-8.2) g/dL Urine Glucose (UA) 2+ H (Negative) Urine Ketones 2+ H (Negative) 03/07/19 03/08/19 03/08/19 Range/Units 14:59 06:41 06:41 WBC 14.2 H (3.8-10.6) k/uL Neutrophils # 10.7 H (1.3-7.7) k/uL Monocytes # 1.2 H (0-1.0) k/uL Chloride (98-107) mmol/L Carbon Dioxide (22-30) mmol/L BUN 8 L (9-20) mg/dL Creatinine (0.66-1.25) mg/dL Glucose (74-99) mg/dL Iron 46 L (65-175) ug/dL Iron Saturation 13.33 L (15.00-50.00) Total Protein 6.1 L (6.3-8.2) g/dL Urine Glucose (UA) (Negative) Urine Ketones (Negative) Assessment and Plan Assessment: Nausea and vomiting, with hematemesis, 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 Hemoglobin is stable Acute gastroenteritis: Abdominal pain in the lower abdomen and right lower quadrant. Could be related to gastroenteritis with irritable bowel syndrome Anxiety, sitter at bedside. Psychiatrist consulted Iron deficiency anemia GERD Irritable bowel syndrome History of diverticulosis Plan: This is a pleasant 53 years old male who presents with continuous nausea and vomiting is difficult to treat. Continue with parenteral hydration. Continue with antiemetics. Continue with Levaquin and Flagyl. Follow-up recommendations of GI and an psychiatrist. Pain management. Continue with Protonix Labs and medication were reviewed.. Continue same treatment. Continue with symptomatic treatment. Resume home medication. Monitor lytes and vitals. DVT and GI prophylaxis. Further recommendations of the clinical course of the patient DVT prophylaxis: Subcutaneous heparin GI Prophylaxis: Protonix Prognosis is guarded
[2019-03-08] MEDS: busPIRone HCl 10 MG TAB PO SCH ×2 (09:26→21:54)
[2019-03-08] MEDS: PANTOPRAZOLE 40 MG/10 ML VIAL IVP SCH (09:26)
[2019-03-08] MEDS: SERTRALINE 100 MG TAB PO SCH (09:27)
[2019-03-08] MEDS: FAMOTIDINE 20 MG TAB PO SCH ×2 (09:27→20:23)
[2019-03-08] MEDS: DICYCLOMINE 20 MG TAB PO SCH ×4 (09:27→21:54)
[2019-03-08] MEDS: MORPHINE SULFATE 2 MG/ML SYRINGE IVP PRN ×4 (09:29→21:55)
[2019-03-08] MEDS: ALPRAZolam 0.5 MG TAB PO PRN (14:21)
--- NOTE | 2019-03-08 18:51 | P.PN ---
Subjective Progress Note Date: 03/08/19 Principal diagnosis: intractable nausea and vomiting, coffee ground emesis, history of irritable bowel syndrome patient is seen lying in bed reporti he had further nausea and vomiting this morn No bowel movements today. Still reporting abdominal pain. Objective - Vital Signs Vital signs: Vital Signs Temp 98.2 F 03/08/19 05:00 Pulse 81 03/08/19 05:00 Resp 18 03/08/19 05:00 BP 122/66 03/08/19 05:00 Pulse Ox 98 03/08/19 05:00 Intake & Output 03/07/19 03/08/19 03/08/19 18:59 06:59 18:59 Intake Total 1200 1850 Output Total 300 Balance 900 1850 Weight 92.986 kg Intake: Intake, IV Titration 1200 1850 Amount Levofloxacin 500Mg-D5w 100 Pmx 500 mg In Dextrose/ Water 1 100ml.bag @ 100 mls/hr IVPB Q24H [facility] Rx#: [id number] Sodium Chloride 0.9% 1, 1200 1650 000 ml @ 150 mls/hr IV . Q6H40M [facility] Rx#:[id number] metroNIDAZOLE-NS PMX 500 100 mg In Saline 1 100ml.bag @ 100 mls/hr IVPB Q8H [facility] Rx#:[id number] Output: Urine 300 Other: Voiding Method Toilet Toilet Urinal Urinal # Voids 1 # Bowel Movements 1 - Exam On physical examination, patient appears comfortable in no apparent distress. HEAD: Normocephalic, atraumatic. EYES: No scleral icterus. No conjunctival injection. MOUTH: No lesions, tongue midline. NECK: Trachea midline, no gross abnormalities. CHEST: Clear to auscultation with no wheezing or rhonchi appreciated. HEART: Regular rate and rhythm. ABDOMEN: Soft, obese. Bowel sounds are positive. No organomegaly. No guarding or rigidity. EXTREMITIES: No pedal edema. SKIN: No rashes, no jaundice. NEUROLOGIC: Alert and oriented x3. No focal deficits. - Labs CBC & Chem 7: 03/08/19 06:41 03/08/19 06:41 Labs: Abnormal Lab Results - Last 24 Hours (Table) 03/07/19 03/07/19 03/07/19 Range/Units 14:26 14:59 14:59 WBC 15.6 H (3.8-10.6) k/uL Neutrophils # 13.0 H (1.3-7.7) k/uL Monocytes # (0-1.0) k/uL Chloride 109 H (98-107) mmol/L Carbon Dioxide 21 L (22-30) mmol/L BUN 8 L (9-20) mg/dL Creatinine 0.64 L (0.66-1.25) mg/dL Glucose 119 H (74-99) mg/dL Iron (65-175) ug/dL Iron Saturation (15.00-50.00) Total Protein (6.3-8.2) g/dL Urine Glucose (UA) 2+ H (Negative) Urine Ketones 2+ H (Negative) 03/07/19 03/08/19 03/08/19 Range/Units 14:59 06:41 06:41 WBC 14.2 H (3.8-10.6) k/uL Neutrophils # 10.7 H (1.3-7.7) k/uL Monocytes # 1.2 H (0-1.0) k/uL Chloride (98-107) mmol/L Carbon Dioxide (22-30) mmol/L BUN 8 L (9-20) mg/dL Creatinine (0.66-1.25) mg/dL Glucose (74-99) mg/dL Iron 46 L (65-175) ug/dL Iron Saturation 13.33 L (15.00-50.00) Total Protein 6.1 L (6.3-8.2) g/dL Urine Glucose (UA) (Negative) Urine Ketones (Negative) Assessment and Plan (1) Intractable vomiting Narrative/Plan: 33-year-old with known history of anxiety and irritable bowel syndrome who pres nausea and vomiting and coffee-ground emesis. Patient had EGD earlier in the year with no significant findings. Hemoglobin His continue to have some nausea and vomiting but no bowel movements today. Current Visit: Yes Status: Acute Code(s): R11.10 - VOMITING, UNSPECIFIED SNOMED Code(s): 773815122 (2) Irritable bowel syndrome Current Visit: Yes Status: Acute Code(s): K58.9 - IRRITABLE BOWEL SYNDROME WITHOUT DIARRHEA SNOMED Code(s): 13202413 Plan: supportive care Diet as tolerated Continue dicyclomine [id number] Continue Zofran ea Continue Protonix daily Continue Pepcid twice a Thank you for allowing us to participate in the care of the patient we will continue to follow
[2019-03-08] MEDS: LEVOFLOXACIN 500MG-D5W PMX 500 MG in DEXTROSE/WATER 1 100ML.BAG IVPB SCH (20:23)
[2019-03-09] MEDS: MORPHINE SULFATE 2 MG/ML SYRINGE IVP PRN ×4 (02:21→19:54)
[2019-03-09] MEDS: SODIUM CHLORIDE 0.9% 1,000 ML IV SCH ×4 (02:23→15:58)
[2019-03-09] MEDS: METOCLOPRAMIDE 5 MG/ML 2 ML VIAL IVP SCH ×4 (04:42→21:36)
[2019-03-09] MEDS: metroNIDAZOLE-NS PMX 500 MG in SALINE 1 100ML.BAG IVPB SCH ×3 (05:35→21:37)
[2019-03-09] MEDS: ONDANSETRON 4 MG/2 ML VIAL IVP PRN ×2 (07:23→15:46)
[2019-03-09 07:38] LABS: Basophils # (A) 0.1 k/uL (0-0.2); Basophils % (A) 1 %; Eosinophils # (A) 0.1 k/uL (0-0.7); Eosinophils % (A) 1 %; HCT 44.1 % (39.0-53.0); HGB 14.7 gm/dL (13.0-17.5); Lymphocytes # (A) 2.1 k/uL (1.0-4.8); Lymphocytes % (A) 16 %; MCH 30.9 pg (25.0-35.0); MCHC 33.3 g/dL (31.0-37.0); MCV 92.6 fL (80.0-100.0); Mean Platelet Volume 6.8; Monocytes # (A) 0.8 k/uL (0-1.0); Monocytes % (A) 6 %; Neutrophils # (A) 9.4 k/uL (1.3-7.7); Neutrophils % (A) 75 %; Platelet Count 342 k/uL (150-450); RBC 4.76 m/uL (4.30-5.90); RDW 13.8 % (11.5-15.5); WBC 12.5 k/uL (3.8-10.6)
[2019-03-09 08:01] LABS: ALT 24 U/L (21-72); AST 20 U/L (17-59); African American GFR (CKD) >90 (>60 ml/min/1.73 sqM); Albumin 4.1 g/dL (3.5-5.0); Alkaline Phosphatase 73 U/L (38-126); Anion Gap 11 mmol/L; Bilirubin,Unconjugated 0.6 mg/dL (0.0-1.1); Blood Urea Nitrogen 9 mg/dL (9-20); Calcium 9.2 mg/dL (8.4-10.2); Carbon Dioxide 23 mmol/L (22-30); Chloride 104 mmol/L (98-107); Glucose 79 mg/dL (74-99); Potassium 3.8 mmol/L (3.5-5.1); Sodium 138 mmol/L (137-145); Total Bilirubin 0.6 mg/dL (0.2-1.3); Total Protein 6.6 g/dL (6.3-8.2)
[2019-03-09] MEDS: FAMOTIDINE 20 MG TAB PO SCH ×2 (08:47→20:32)
[2019-03-09] MEDS: busPIRone HCl 10 MG TAB PO SCH ×2 (08:47→20:32)
[2019-03-09] MEDS: PANTOPRAZOLE 40 MG/10 ML VIAL IVP SCH (08:47)
[2019-03-09] MEDS: DICYCLOMINE 20 MG TAB PO SCH ×4 (08:47→21:36)
[2019-03-09] MEDS: ALPRAZolam 0.5 MG TAB PO PRN ×2 (08:51→21:37)
[2019-03-09] MEDS ORDERED: ESCITALOPRAM 5 MG TAB PO SCH (09:00)
--- NOTE | 2019-03-09 14:40 | P.PN ---
Subjective Progress Note Date: 03/09/19 Principal diagnosis: Intractable nausea and vomiting with hematemesis Mr. Russo is a 33-year-old male with a past medical history of GERD, diverticulosis and irritable bowel syndrome coming in to the hospital with a chief complaint of intractable nausea and vomiting. Patient also also having diarrhea along with the symptoms. He is currently being treated for intractable nausea and vomiting. He has been started on Levaquin and Flagyl and admitted to the floor for further management. Patient had an EGD earlier this year with no significant findings. On 03/09/2019 -patient is comfortably sitting up in the bed. Patient's diarrhea has resolved completely. His last bowel movement was day before yesterday. He continues to have nausea and vomiting. He is currently able to tolerate clear liquids. He reports that his abdominal pain has improved. He denies having any fevers chills or rigors. No chest pain or difficulty in breathing. No palpitations. No cough. No dysuria or hematuria. Patient had labs drawn this morning that are within normal limits. Active Medications Acetaminophen (Tylenol Tab) 650 mg PO Q6HR PRN PRN Reason: Fever and/ or Pain Alprazolam (Xanax) 0.5 mg PO BID PRN PRN Reason: Anxiety Last Admin: 03/09/19 08:51 Dose: 0.5 mg Documented by: Buspirone HCl (Buspar) 10 mg PO TID [facility] Last Admin: 03/09/19 08:47 Dose: 10 mg Documented by: Dicyclomine HCl (Bentyl) 20 mg PO QID [facility] Last Admin: 03/09/19 13:44 Dose: 20 mg Documented by: Escitalopram Oxalate (Lexapro) 5 mg PO DAILY [facility] Stop: 03/10/19 10:00 Last Admin: 03/09/19 08:47 Dose: 5 mg Documented by: Escitalopram Oxalate (Lexapro) 10 mg PO DAILY [facility] Famotidine (Pepcid) 20 mg PO BID [facility] Last Admin: 03/09/19 08:47 Dose: 20 mg Documented by: Sodium Chloride (Saline 0.9%) 1,000 mls @ 150 mls/hr IV .Q6H40M [facility] Last Admin: 03/09/19 07:32 Dose: 150 mls/hr Documented by: Metronidazole 500 mg/ IV (Solution) 100 mls @ 100 mls/hr IVPB Q8H [facility] Last Admin: 03/09/19 13:44 Dose: 100 mls/hr Documented by: Levofloxacin 500 mg/ IV (Solution) 100 mls @ 100 mls/hr IVPB Q24H [facility] Last Admin: 03/08/19 20:23 Dose: 100 mls/hr Documented by: Metoclopramide HCl (Reglan) 10 mg IVP Q6H [facility] Last Admin: 03/09/19 10:59 Dose: 10 mg Documented by: Morphine Sulfate (Morphine Sulfate (Inj)) 2 mg IVP Q4HR PRN PRN Reason: SEVERE Pain Last Admin: 03/09/19 07:24 Dose: 2 mg Documented by: Naloxone HCl (Narcan) 0.2 mg IV Q2M PRN PRN Reason: Opioid Reversal Ondansetron HCl (Zofran) 8 mg PO Q8H PRN PRN Reason: Nausea Ondansetron HCl (Zofran) 4 mg IVP Q6HR PRN PRN Reason: Nausea And Vomiting Last Admin: 03/09/19 07:23 Dose: 4 mg Documented by: Pantoprazole Sodium (Protonix) 40 mg IVP DAILY [facility] Last Admin: 03/09/19 08:47 Dose: 40 mg Documented by: Objective - Vital Signs Vital signs: Vital Signs Temp 97.9 F 03/09/19 12:51 Pulse 72 03/09/19 12:51 Resp 17 03/09/19 12:51 BP 164/87 03/09/19 12:51 Pulse Ox 99 03/09/19 12:51 Intake & Output 03/08/19 03/09/19 03/09/19 18:59 06:59 18:59 Intake Total 1300 1480 360 Balance 1300 1480 360 Intake: Intake, IV Titration 1300 300 Amount Levofloxacin 500Mg-D5w 100 Pmx 500 mg In Dextrose/ Water 1 100ml.bag @ 100 mls/hr IVPB Q24H [facility] Rx#: [id number] Sodium Chloride 0.9% 1, 1200 000 ml @ 150 mls/hr IV . Q6H40M [facility] Rx#:[id number] metroNIDAZOLE-NS PMX 500 100 200 mg In Saline 1 100ml.bag @ 100 mls/hr IVPB Q8H [facility] Rx#:[id number] Oral 1180 360 Other: Voiding Method Toilet Toilet Toilet Urinal # Voids 2 - Exam GENERAL: The patient is alert and oriented x3, not in any acute distress. Well developed, well nourished. HEENT: PERRLA. No pallor no icterus. CARDIOVASCULAR: S1 and S2 present. No murmurs, rubs, or gallops. PULMONARY: Chest is clear to auscultation, no wheezing or crackles. ABDOMEN: Softy, diffuse tenderness in all quadrants. No rebound tenderness. Hyperactive bowel sounds. MUSCULOSKELETAL: No joint swelling or deformity. EXTREMITIES: No cyanosis, clubbing, or pedal edema. NEUROLOGICAL: Gross neurological examination did not reveal any focal deficits. SKIN: No rashes. No petechiae - Labs CBC & Chem 7: 03/09/19 07:03 03/09/19 07:03 Labs: Abnormal Lab Results - Last 24 Hours (Table) 03/09/19 Range/Units 07:03 WBC 12.5 H (3.8-10.6) k/uL Neutrophils # 9.4 H (1.3-7.7) k/uL Assessment and Plan Assessment: ASSESSMENT Intractable nausea and vomiting Acute diarrhea resolved History of rectal bowel syndrome Anxiety Bridgette deficiency anemia GERD History of diverticulosis PLAN: Patient has been started on Levaquin and Flagyl after which his symptoms of diarrhea improved. So we will empirically continue him on these antibiotics. He is symptomatically being managed for his nausea and vomiting. GI on board and following the patient. As the patient has anxiety issues he had a sitter at the bedside yesterday and psychiatric services have been consulted. Patient was evaluated by them, and he was deemed to be stable and the sister was d iscontinued. Continue with the rest of the current medication regimen. Further recommendations to follow depending on the progress of the patient.
--- NOTE | 2019-03-09 15:28 | P.CN ---
Psychiatric Consult - . 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 HISTORY OF PRESENT ILLNESS: The patient was brought into the hospital after being seen multiple times at [facility] for similar complaints of nausea vomiting anxiety abdominal pain and diarrhea. Patient was endorsing passive SI related to his symptoms when he came in. Psychiatry was consulted for depression and anxiety. Patient was seated at the bedside and was agreeable to speak to process description writer. Patient spoke about having IBS and diverticulitis 4 years now. He also spoke about having panic attacks recently of the past 2 weeks and describes him as having shortness of breath and feeling of doom. He claims that he was started on Zoloft however he states that it was causing more IBS related symptoms and described it as "tearing up my gut". He claims that he was on BuSpar which did help somewhat his anxiety car and felt the dose was not high enough. He claims that his mood at this time is "alright" and denies any depression. He stated that he sleeps around 3-4 hours a night however has been interrupted mainly due to his roommate in the hospital. He claims that his appetite has been improving in his energy level is okay. When asked about his previous suicidal ideations patient state stated that it was mainly related to his symptoms of nausea and vomiting and if those went away then he says that he does not feel suicidal. At this time patient denies any suicidal or homical ideations, intent or plan. Patient denies any auditory, visual hallucinations and denies any paranoia or delusions. PAST PSYCHIATRIC HISTORY: He denies any previous psychiatric admissions. He states that he used to see a psychiatrist as an outpatient in [place] however has not followed up in over 2 years. He admitted to being on Xanax and BuSpar in the past. He denies any previous suicide attempts. PAST MEDICAL HISTORY: GERD, IBS, diverticulitis. ALLERGIES: As per EMR. CHEMICAL DEPENDENCY HISTORY: He admitted to smoking marijuana approximately 2 g a day since the age of 19. He denies any other recreational drug use including alcohol or cigarettes. FAMILY PSYCHIATRIC/SUBSTANCE USE HISTORY: denies SOCIAL HISTORY: States that he grew up in [facility] and does have some college. 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 MENTAL STATUS EXAM: General Appearance: Patient appears to be stated age is alert, pleasant, and cooperative. Patient appears to be no acute distress. Fair hygiene and fair grooming. Behavior: Patient is calmly lying in bed without any agitated behavior. Speech: Patient's speech is fluent and nonpressured. Mood/Affect: Patient reports their mood is fine, affect is congruent Suicidality/Homicidality: Patient denies having any suicidal or homicidal ideation intent or plan. Perceptions: Patient denies any auditory or visual hallucinations. Though content/process: There is no evidence of any delusional thought content and thought process is linear and goal-directed. Memory and concentration: AOX3, grossly intact for the purposes of this session. Can spell "WORLD" backwards Judgment and insight: fair IMPRESSIONS: Anxiety disorder unspecified rule out secondary to a general medical condition Depressive disorder unspecified Cannabis use disorder PLAN: -At this time patient does NOT meet criteria for inpatient psychiatric admission. -It appears that patient's anxiety and mood symptoms are most likely related to either his cannabis use and/or his gastrointestinal condition. Patient was counseled on abstaining from marijuana and how it may be perpetuating his symptoms at this time. Patient verbally understood and agreed however was superficial. -Would recommend the following medication changes/additions: Will increase Lexapro to 20 mg daily for mood/anxiety. We'll also increase BuSpar to 20 mg twice a day for anxiety. BuSpar can be increased further if needed as patient does find good results with this. -Can continue small dose of Xanax 0.5 mg twice a day when necessary for anxiety. -Psychiatry will sign off at this point Thank you for the consult 03/09/19 15:19
--- NOTE | 2019-03-09 17:25 | P.PN ---
Subjective Progress Note Date: 03/09/19 Principal diagnosis: intractable nausea and vomiting, coffee ground emesis, history of irritable bowel syndrome Patient is seen lying in bed. He reports tolerating Jell-O this morning. He did have further nausea and vomiting yesterday. Still reporting some abdominal pain. Objective - Vital Signs Vital signs: Vital Signs Temp 97.9 F 03/09/19 12:51 Pulse 72 03/09/19 12:51 Resp 17 03/09/19 12:51 BP 164/87 03/09/19 12:51 Pulse Ox 99 03/09/19 12:51 Intake & Output 03/08/19 03/09/19 03/09/19 18:59 06:59 18:59 Intake Total 1300 1480 2540 Output Total 300 Balance 1300 1480 2240 Intake: Intake, IV Titration 9341 092 9536 Amount Levofloxacin 500Mg-D5w 100 100 Pmx 500 mg In Dextrose/ Water 1 100ml.bag @ 100 mls/hr IVPB Q24H [facility] Rx#: [id number] Sodium Chloride 0.9% 1, 1200 1500 000 ml @ 150 mls/hr IV . Q6H40M [facility] Rx#:[id number] metroNIDAZOLE-NS PMX 500 100 200 100 mg In Saline 1 100ml.bag @ 100 mls/hr IVPB Q8H [facility] Rx#:[id number] Oral 1180 840 Output: Urine 300 Other: Voiding Method Toilet Toilet Toilet Urinal # Voids 2 5 - Exam On physical examination, patient appears comfortable in no apparent distress. HEAD: Normocephalic, atraumatic. EYES: No scleral icterus. No conjunctival injection. MOUTH: No lesions, tongue midline. NECK: Trachea midline, no gross abnormalities. CHEST: Clear to auscultation with no wheezing or rhonchi appreciated. HEART: Regular rate and rhythm. ABDOMEN: Soft, obese. Bowel sounds are positive. No organomegaly. No guarding or rigidity. EXTREMITIES: No pedal edema. SKIN: No rashes, no jaundice. NEUROLOGIC: Alert and oriented x3. No focal deficits. - Labs CBC & Chem 7: 03/09/19 07:03 03/09/19 07:03 Labs: Abnormal Lab Results - Last 24 Hours (Table) 03/09/19 Range/Units 07:03 WBC 12.5 H (3.8-10.6) k/uL Neutrophils # 9.4 H (1.3-7.7) k/uL Assessment and Plan (1) Intractable vomiting Narrative/Plan: 33-year-old with known history of anxiety and irritable bowel syndrome who pres nausea and vomiting and coffee-ground emesis. Patient had EGD earlier in the year with no significant findings. Hemoglobin stable at 14.7. Current Visit: Yes Status: Acute Code(s): R11.10 - VOMITING, UNSPECIFIED SNOMED Code(s): 128021646 (2) Irritable bowel syndrome Current Visit: Yes Status: Acute Code(s): K58.9 - IRRITABLE BOWEL SYNDROME WITHOUT DIARRHEA SNOMED Code(s): 62568238 Plan: supportive care Diet as tolerated Continue dicyclomine [id number] Continue Zofran ea Continue Protonix daily Continue Pepcid twice a Thank you for allowing us to participate in the care of the patient we will continue to follow
[2019-03-09] MEDS: LEVOFLOXACIN 500MG-D5W PMX 500 MG in DEXTROSE/WATER 1 100ML.BAG IVPB SCH (20:33)
[2019-03-10] MEDS: SODIUM CHLORIDE 0.9% 1,000 ML IV SCH ×4 (01:00→17:33)
[2019-03-10] MEDS: ONDANSETRON 4 MG/2 ML VIAL IVP PRN ×3 (01:37→18:16)
[2019-03-10] MEDS: MORPHINE SULFATE 2 MG/ML SYRINGE IVP PRN ×5 (01:42→22:39)
[2019-03-10] MEDS: METOCLOPRAMIDE 5 MG/ML 2 ML VIAL IVP SCH ×4 (03:55→21:56)
[2019-03-10] MEDS: metroNIDAZOLE-NS PMX 500 MG in SALINE 1 100ML.BAG IVPB SCH ×3 (05:39→21:56)
[2019-03-10 07:41] LABS: Basophils # (A) 0.1 k/uL (0-0.2); Basophils % (A) 0 %; Eosinophils # (A) 0.2 k/uL (0-0.7); Eosinophils % (A) 2 %; HGB 14.4 gm/dL (13.0-17.5); Lymphocytes # (A) 2.2 k/uL (1.0-4.8); Lymphocytes % (A) 18 %; MCH 31.2 pg (25.0-35.0); MCHC 33.6 g/dL (31.0-37.0); Mean Platelet Volume 6.4; Monocytes # (A) 0.9 k/uL (0-1.0); Monocytes % (A) 8 %; Neutrophils # (A) 8.2 k/uL (1.3-7.7); Neutrophils % (A) 70 %; Platelet Count 320 k/uL (150-450); RBC 4.62 m/uL (4.30-5.90); RDW 12.5 % (11.5-15.5); WBC 11.7 k/uL (3.8-10.6)
[2019-03-10 07:58] LABS: ALT 26 U/L (21-72); AST 17 U/L (17-59); African American GFR (CKD) >90 (>60 ml/min/1.73 sqM); Albumin 3.7 g/dL (3.5-5.0); Alkaline Phosphatase 60 U/L (38-126); Anion Gap 10 mmol/L; Bilirubin, Delta 0.2 mg/dL (0.0-0.2); Bilirubin,Unconjugated 0.5 mg/dL (0.0-1.1); Blood Urea Nitrogen 9 mg/dL (9-20); Calcium 9.2 mg/dL (8.4-10.2); Carbon Dioxide 25 mmol/L (22-30); Chloride 105 mmol/L (98-107); Glucose 84 mg/dL (74-99); Potassium 3.9 mmol/L (3.5-5.1); Sodium 140 mmol/L (137-145); Total Bilirubin 0.7 mg/dL (0.2-1.3); Total Protein 6.2 g/dL (6.3-8.2)
[2019-03-10] MEDS: ALPRAZolam 0.5 MG TAB PO PRN ×2 (08:03→20:38)
[2019-03-10] MEDS: FAMOTIDINE 20 MG TAB PO SCH ×2 (08:03→20:38)
[2019-03-10] MEDS: PANTOPRAZOLE 40 MG/10 ML VIAL IVP SCH (08:03)
[2019-03-10] MEDS: busPIRone HCl 10 MG TAB PO SCH ×2 (08:04→20:47)
[2019-03-10] MEDS: DICYCLOMINE 20 MG TAB PO SCH ×4 (08:04→20:43)
[2019-03-10] MEDS: ESCITALOPRAM 20 MG TAB PO SCH (08:05)
--- NOTE | 2019-03-10 14:12 | P.PN ---
Progress Note - Text Progress Note Date: 03/10/19 Interval History: Patient was seen today for follow-up for depression/anxiety along with IBS/GI symptoms including intractable nausea and diarrhea. Patient was started on BuSpar which was increased to 20 mg 3 times a day for anxiety along with Lexapro which was increased to 20 mg daily for mood and anxiety. Patient was lying in bed comfortably and spoke to radio script writer about his night. He states that he was moved rooms and slept much better as his roommate was not snoring. He also states that his mood and anxiety have greatly improved on the medications and states that it slum more "tolerable now". Patient was asked if he would like to have any of his medications increased how he felt about that and patient states at this time she would like to remain on the same meds as he feels it is helping. He claims that he is continuing to be followed by GI which they've may plan to scope him either today or tomorrow. Patient reports better sleep improved energy. At this time patient denies any suicidal or homical ideations, intent or plan. Patient denies any auditory, visual hallucinations and denies any paranoia or delusions. Patient denies any side effects from the medications and has been compliant with meds. Mental Status Exam: General Appearance: Patient appears to be stated age is alert, pleasant, and cooperative. Patient appears to be no acute distress. Fair hygiene and fair grooming. Behavior: Patient is calmly lying in bed without any agitated behavior. Speech: Patient's speech is fluent and nonpressured. Mood/Affect: Patient reports their mood is improved, affect is congruent Suicidality/Homicidality: Patient denies having any suicidal or homicidal ideation intent or plan. Perceptions: Patient denies any auditory or visual hallucinations. Though content/process: There is no evidence of any delusional thought content and thought process is linear and goal-directed. Memory and concentration: AOX3, grossly intact for the purposes of this session. Judgment and insight: fair improving Assessment Anxiety disorder unspecified rule out secondary to a general medical condition Depressive disorder unspecified Cannabis use disorder PLAN: -At this time patient does NOT meet criteria for inpatient psychiatric admission. -It appears that patient's anxiety and mood symptoms have improved overnight and this morning patient states that he is content with the medication and dosages. Patient was again counseled on abstaining from marijuana and how it may be perpetuating his symptoms at this time. Patient verbally understood and agreed. -Would recommend the following medication changes/additions: Continue with Lexapro to 20 mg daily for mood/anxiety. Continue with BuSpar to 20 mg twice a day for anxiety. Continue Xanax 0.5 mg twice a day when necessary for anxiety. -Psychiatry will sign off at this point
--- NOTE | 2019-03-10 15:18 | P.PN ---
Subjective Progress Note Date: 03/10/19 Principal diagnosis: Intractable nausea and vomiting with hematemesis Mr. Russo is a 33-year-old male with a past medical history of GERD, diverticulosis and irritable bowel syndrome coming in to the hospital with a chief complaint of intractable nausea and vomiting. Patient also also having diarrhea along with the symptoms. He is currently being treated for intractable nausea and vomiting. He has been started on Levaquin and Flagyl and admitted to the floor for further management. Patient had an EGD earlier this year with no significant findings. On 03/10/2019 -patient is comfortably sitting up in the bed. Patient states that he had 4 bowel movements that are reportedly since this morning. He also has diffuse lower abdominal pain. No blood in the stool. No nausea or vomiting. Patient's vitals have been stable. CBC and electrolytes within normal limits. On review of systems- Constitutional- He denies having any fevers chills or rigors. Cardiac - No chest pain or palpitations Respiratory- No cough or difficulty in breathing. Genitourinary- No dysuria or hematuria. Active Medications Acetaminophen (Tylenol Tab) 650 mg PO Q6HR PRN PRN Reason: Fever and/ or Pain Alprazolam (Xanax) 0.5 mg PO BID PRN PRN Reason: Anxiety Last Admin: 03/10/19 08:03 Dose: 0.5 mg Documented by: Buspirone HCl (Buspar) 20 mg PO BID [facility] Last Admin: 03/10/19 08:04 Dose: 20 mg Documented by: Dicyclomine HCl (Bentyl) 20 mg PO QID [facility] Last Admin: 03/10/19 11:59 Dose: 20 mg Documented by: Escitalopram Oxalate (Lexapro) 20 mg PO DAILY [facility] Last Admin: 03/10/19 08:05 Dose: 20 mg Documented by: Famotidine (Pepcid) 20 mg PO BID [facility] Last Admin: 03/10/19 08:03 Dose: 20 mg Documented by: Sodium Chloride (Saline 0.9%) 1,000 mls @ 150 mls/hr IV .Q6H40M [facility] Last Admin: 03/10/19 11:58 Dose: 150 mls/hr Documented by: Metronidazole 500 mg/ IV (Solution) 100 mls @ 100 mls/hr IVPB Q8H [facility] Last Admin: 03/10/19 13:49 Dose: 100 mls/hr Documented by: Levofloxacin 500 mg/ IV (Solution) 100 mls @ 100 mls/hr IVPB Q24H [facility] Last Admin: 03/09/19 20:33 Dose: 100 mls/hr Documented by: Metoclopramide HCl (Reglan) 10 mg IVP Q6H [facility] Last Admin: 03/10/19 11:58 Dose: 10 mg Documented by: Morphine Sulfate (Morphine Sulfate (Inj)) 2 mg IVP Q4HR PRN PRN Reason: SEVERE Pain Last Admin: 03/10/19 13:48 Dose: 2 mg Documented by: Naloxone HCl (Narcan) 0.2 mg IV Q2M PRN PRN Reason: Opioid Reversal Ondansetron HCl (Zofran) 8 mg PO Q8H PRN PRN Reason: Nausea Ondansetron HCl (Zofran) 4 mg IVP Q6HR PRN PRN Reason: Nausea And Vomiting Last Admin: 03/10/19 08:03 Dose: 4 mg Documented by: Pantoprazole Sodium (Protonix) 40 mg IVP DAILY [facility] Last Admin: 03/10/19 08:03 Dose: 40 mg Documented by: Objective - Vital Signs Vital signs: Vital Signs Temp 98.1 F 03/10/19 12:36 Pulse 59 L 03/10/19 12:36 Resp 17 03/10/19 12:36 BP 150/84 03/10/19 12:36 Pulse Ox 98 03/10/19 12:36 Intake & Output 03/09/19 03/10/19 03/10/19 18:59 06:59 18:59 Intake Total 2780 1425 240 Output Total 300 Balance 2480 1425 240 Weight 92.986 kg Intake: Intake, IV Titration 1700 1425 Amount Levofloxacin 500Mg-D5w 100 100 Pmx 500 mg In Dextrose/ Water 1 100ml.bag @ 100 mls/hr IVPB Q24H [facility] Rx#: [id number] Sodium Chloride 0.9% 1, 1500 1125 000 ml @ 150 mls/hr IV . Q6H40M [facility] Rx#:[id number] metroNIDAZOLE-NS PMX 500 100 200 mg In Saline 1 100ml.bag @ 100 mls/hr IVPB Q8H [facility] Rx#:[id number] Oral 1080 240 Output: Urine 300 Other: Voiding Method Toilet Toilet # Voids 5 3 3 - Exam GENERAL: The patient is alert and oriented x3, not in any acute distress. Well developed, well nourished. HEENT: PERRLA. No pallor no icterus. CARDIOVASCULAR: S1 and S2 present. No murmurs, rubs, or gallops. PULMONARY: Chest is clear to auscultation, no wheezing or crackles. ABDOMEN: Softy, diffuse tenderness in bilateral lower quadrants. No rebound tenderness. Hyperactive bowel sounds. MUSCULOSKELETAL: No joint swelling or deformity. EXTREMITIES: No cyanosis, clubbing, or pedal edema. NEUROLOGICAL: Gross neurological examination did not reveal any focal deficits. SKIN: No rashes. No petechiae - Labs CBC & Chem 7: 03/10/19 07:15 03/10/19 07:15 Labs: Abnormal Lab Results - Last 24 Hours (Table) 03/10/19 03/10/19 Range/Units 07:15 07:15 WBC 11.7 H (3.8-10.6) k/uL Neutrophils # 8.2 H (1.3-7.7) k/uL Total Protein 6.2 L (6.3-8.2) g/dL Assessment and Plan Assessment: ASSESSMENT Intractable nausea and vomiting Acute diarrhea resolved History of rectal bowel syndrome Anxiety Bridgette deficiency anemia GERD History of diverticulosis PLAN: Patient has been started on Levaquin and Flagyl empirically that will be continued, as the patient continues to have diarrhea. Patient's white count has been stable at 11.7. He is on Zofran for his nausea. He did not throw up since this morning. But he still nauseous. GI on board and following the patient. Continue with the rest of the current medication regimen. Further recommendations to follow depending on the progress of the patient.
--- NOTE | 2019-03-10 15:30 | P.PN ---
Subjective Progress Note Date: 03/10/19 Principal diagnosis: intractable nausea and vomiting, coffee ground emesis, history of irritable bowel syndrome Patient is seen lying in bed. He is reporting that her abdominal pain is still present, but nausea was somewhat improved and he was able to tolerate popsicle for breakfast. He did have some loose bowel movement this afternoon and in the morning. Objective - Vital Signs Vital signs: Vital Signs Temp 98.1 F 03/10/19 12:36 Pulse 59 L 03/10/19 12:36 Resp 17 03/10/19 12:36 BP 150/84 03/10/19 12:36 Pulse Ox 98 03/10/19 12:36 Intake & Output 03/09/19 03/10/19 03/10/19 18:59 06:59 18:59 Intake Total 2780 1425 3560 Output Total 300 Balance 2480 1425 3560 Weight 92.986 kg Intake: Intake, IV Titration 1700 1425 2600 Amount Levofloxacin 500Mg-D5w 100 100 100 Pmx 500 mg In Dextrose/ Water 1 100ml.bag @ 100 mls/hr IVPB Q24H [facility] Rx#: [id number] Sodium Chloride 0.9% 1, 1500 1125 2400 000 ml @ 150 mls/hr IV . Q6H40M [facility] Rx#:[id number] metroNIDAZOLE-NS PMX 500 100 200 100 mg In Saline 1 100ml.bag @ 100 mls/hr IVPB Q8H [facility] Rx#:[id number] Oral 1080 960 Output: Urine 300 Other: Voiding Method Toilet Toilet Toilet # Voids 5 3 3 - Exam On physical examination, patient appears comfortable in no apparent distress. HEAD: Normocephalic, atraumatic. EYES: No scleral icterus. No conjunctival injection. MOUTH: No lesions, tongue midline. NECK: Trachea midline, no gross abnormalities. CHEST: Clear to auscultation with no wheezing or rhonchi appreciated. HEART: Regular rate and rhythm. ABDOMEN: Soft, obese. Bowel sounds are positive. No organomegaly. No guarding or rigidity. EXTREMITIES: No pedal edema. SKIN: No rashes, no jaundice. NEUROLOGIC: Alert and oriented x3. No focal deficits. - Labs CBC & Chem 7: 03/10/19 07:15 03/10/19 07:15 Labs: Abnormal Lab Results - Last 24 Hours (Table) 03/10/19 03/10/19 Range/Units 07:15 07:15 WBC 11.7 H (3.8-10.6) k/uL Neutrophils # 8.2 H (1.3-7.7) k/uL Total Protein 6.2 L (6.3-8.2) g/dL Assessment and Plan (1) Intractable vomiting Narrative/Plan: 33-year-old with known history of anxiety and irritable bowel syndrome who pres nausea and vomiting and coffee-ground emesis. Patient had EGD earlier in the year with no significant findings. Hemoglobin stable. Current Visit: Yes Status: Acute Code(s): R11.10 - VOMITING, UNSPECIFIED SNOMED Code(s): 354711500 (2) Irritable bowel syndrome Current Visit: Yes Status: Acute Code(s): K58.9 - IRRITABLE BOWEL SYNDROME WITHOUT DIARRHEA SNOMED Code(s): 87201535 Plan: supportive care Diet as tolerated Continue dicyclomine [id number] Continue Zofran Continue Protonix daily Continue Pepcid twice daily Patient reported loose stools a day with sample sent and pending Thank you for allowing us to participate in the care of the patient we will continue to follow
[2019-03-10] MEDS: LEVOFLOXACIN 500MG-D5W PMX 500 MG in DEXTROSE/WATER 1 100ML.BAG IVPB SCH (20:39)
[2019-03-11] MEDS: SODIUM CHLORIDE 0.9% 1,000 ML IV SCH ×4 (02:06→21:58)
[2019-03-11] MEDS: METOCLOPRAMIDE 5 MG/ML 2 ML VIAL IVP SCH ×4 (04:12→22:00)
[2019-03-11] MEDS: MORPHINE SULFATE 2 MG/ML SYRINGE IVP PRN ×4 (05:13→19:32)
[2019-03-11] MEDS: ONDANSETRON 4 MG/2 ML VIAL IVP PRN ×3 (05:13→17:48)
[2019-03-11] MEDS: metroNIDAZOLE-NS PMX 500 MG in SALINE 1 100ML.BAG IVPB SCH ×3 (05:13→23:17)
[2019-03-11] MEDS ORDERED: ESCITALOPRAM 10 MG TAB PO SCH (09:00)
[2019-03-11 09:52] LABS: Basophils # (A) 0.1 k/uL (0-0.2); Basophils % (A) 1 %; Eosinophils # (A) 0.2 k/uL (0-0.7); Eosinophils % (A) 2 %; HCT 44.5 % (39.0-53.0); HGB 14.9 gm/dL (13.0-17.5); Lymphocytes # (A) 1.8 k/uL (1.0-4.8); Lymphocytes % (A) 18 %; MCH 31.5 pg (25.0-35.0); MCHC 33.5 g/dL (31.0-37.0); Mean Platelet Volume 6.8; Monocytes # (A) 0.6 k/uL (0-1.0); Monocytes % (A) 6 %; Neutrophils % (A) 71 %; Platelet Count 325 k/uL (150-450); RBC 4.73 m/uL (4.30-5.90); RDW 12.5 % (11.5-15.5); WBC 9.9 k/uL (3.8-10.6)
[2019-03-11] MEDS: PANTOPRAZOLE 40 MG/10 ML VIAL IVP SCH (09:54)
[2019-03-11] MEDS: DICYCLOMINE 20 MG TAB PO SCH ×4 (09:55→22:00)
[2019-03-11] MEDS: ESCITALOPRAM 20 MG TAB PO SCH (09:55)
[2019-03-11] MEDS: ENOXAPARIN 40 MG/0.4 ML SYRINGE SQ SCH (09:55)
[2019-03-11] MEDS: FAMOTIDINE 20 MG TAB PO SCH ×2 (09:55→21:59)
[2019-03-11] MEDS: busPIRone HCl 10 MG TAB PO SCH ×2 (09:55→21:59)
[2019-03-11 10:06] LABS: African American GFR (CKD) >90 (>60 ml/min/1.73 sqM); Anion Gap 11 mmol/L; Blood Urea Nitrogen 6 mg/dL (9-20); Calcium 8.9 mg/dL (8.4-10.2); Carbon Dioxide 25 mmol/L (22-30); Chloride 104 mmol/L (98-107); Glucose 115 mg/dL (74-99); Potassium 3.4 mmol/L (3.5-5.1); Sodium 140 mmol/L (137-145)
[2019-03-11] MEDS ORDERED: Potassium Replacement Protocol 1 EACH MISC MISCELLANE PRN (11:38)
[2019-03-11] MEDS: POTASSIUM CHLORIDE 20 MEQ in WATER FOR INJECTION 1 100ML.BAG IVPB STA ×2 (12:09→14:34)
[2019-03-11] MEDS ORDERED: POTASSIUM CHLORIDE IVPB STA ×2 (12:18)
[2019-03-11] MEDS ORDERED: WATER FOR INJECTION IVPB STA ×2 (12:18)
[2019-03-11] MEDS: POTASSIUM CHLORIDE 10 MEQ in WATER FOR INJECTION 1 100ML.BAG IVPB SCH ×2 (14:29→17:16)
[2019-03-11] MEDS ORDERED: IBUPROFEN 400 MG TAB PO SCH (22:00)
[2019-03-11] MEDS: LEVOFLOXACIN 500MG-D5W PMX 500 MG in DEXTROSE/WATER 1 100ML.BAG IVPB SCH (22:00)
[2019-03-11] MEDS ORDERED: IBUPROFEN 400 MG TAB PO PRN (22:10)
[2019-03-12] MEDS: ONDANSETRON 4 MG/2 ML VIAL IVP PRN (00:49)
[2019-03-12] MEDS: MORPHINE SULFATE 2 MG/ML SYRINGE IVP PRN ×4 (00:52→18:07)
--- NOTE | 2019-03-12 01:53 | P.PN ---
Subjective Progress Note Date: 03/11/19 Principal diagnosis: Intractable nausea and vomiting with hematemesis Mr. Russo is a 33-year-old male with a past medical history of GERD, diverticulosis and irritable bowel syndrome coming in to the hospital with a chief complaint of intractable nausea and vomiting. Patient also also having diarrhea along with the symptoms. He is currently being treated for intractable nausea and vomiting. He has been started on Levaquin and Flagyl and admitted to the floor for further management. Patient had an EGD earlier this year with no significant findings. On 03/11/19 - Patient still complaining of nausea and vomiting. He has been throwing up and not able to keep anything down. He also complains of ongoing diarrhea. He has mild lower abdominal discomfort. He denies having any fevers chills or rigors. No chest pain or palpitations. No dysuria or hematuria. Patient's vitals within normal limits. His hemoglobin has been stable at 14.9. Electrolytes within normal limits except for potassium which is low at 3.4. His stool culture is still pending. Stool lactoferrin is positive. Active Medications Acetaminophen (Tylenol Tab) 650 mg PO Q6HR PRN PRN Reason: Fever and/ or Pain Alprazolam (Xanax) 0.5 mg PO BID PRN PRN Reason: Anxiety Last Admin: 03/10/19 20:38 Dose: 0.5 mg Documented by: Buspirone HCl (Buspar) 20 mg PO BID [facility] Last Admin: 03/11/19 21:59 Dose: 20 mg Documented by: Dicyclomine HCl (Bentyl) 20 mg PO QID [facility] Last Admin: 03/11/19 22:00 Dose: Not Given Documented by: Enoxaparin Sodium (Lovenox) 40 mg SQ DAILY [facility] Last Admin: 03/11/19 09:55 Dose: 40 mg Documented by: Escitalopram Oxalate (Lexapro) 20 mg PO DAILY [facility] Last Admin: 03/11/19 09:55 Dose: 20 mg Documented by: Famotidine (Pepcid) 20 mg PO BID [facility] Last Admin: 03/11/19 21:59 Dose: 20 mg Documented by: Sodium Chloride (Saline 0.9%) 1,000 mls @ 150 mls/hr IV .Q6H40M [facility] Last Admin: 09/23/19 21:58 Dose: 150 mls/hr Documented by: Metronidazole 500 mg/ IV (Solution) 100 mls @ 100 mls/hr IVPB Q8H [facility] Last Admin: 03/11/19 23:17 Dose: 100 mls/hr Documented by: Levofloxacin 500 mg/ IV (Solution) 100 mls @ 100 mls/hr IVPB Q24H [facility] Last Admin: 03/11/19 22:00 Dose: 100 mls/hr Documented by: Ibuprofen (Motrin) 400 mg PO TID PRN PRN Reason: Pain Last Admin: 03/11/19 22:35 Dose: 400 mg Documented by: Metoclopramide HCl (Reglan) 10 mg IVP Q6H [facility] Last Admin: 03/11/19 22:00 Dose: 10 mg Documented by: Miscellaneous Information (Potassium Per Protocol) 1 each MISCELLANE DAILY PRN; Protocol PRN Reason: Per Protocol Morphine Sulfate (Morphine Sulfate (Inj)) 2 mg IVP Q4HR PRN PRN Reason: SEVERE Pain Last Admin: 03/12/19 00:52 Dose: 2 mg Documented by: Naloxone HCl (Narcan) 0.2 mg IV Q2M PRN PRN Reason: Opioid Reversal Ondansetron HCl (Zofran) 8 mg PO Q8H PRN PRN Reason: Nausea Ondansetron HCl (Zofran) 4 mg IVP Q6HR PRN PRN Reason: Nausea And Vomiting Last Admin: 03/12/19 00:49 Dose: 4 mg Documented by: Pantoprazole Sodium (Protonix) 40 mg IVP DAILY [facility] Last Admin: 03/11/19 09:54 Dose: 40 mg Documented by: Objective - Vital Signs Vital signs: Vital Signs Temp 98.2 F 03/11/19 12:03 Pulse 65 03/11/19 12:03 Resp 17 03/11/19 12:03 BP 133/84 03/11/19 12:03 Pulse Ox 98 03/11/19 12:03 Intake & Output 03/10/19 03/11/19 03/11/19 18:59 06:59 18:59 Intake Total 3920 1550 1150 Output Total 300 Balance 3620 1550 1150 Weight 92.986 kg Intake: Intake, IV Titration 2600 1550 1150 Amount Levofloxacin 500Mg-D5w 100 100 Pmx 500 mg In Dextrose/ Water 1 100ml.bag @ 100 mls/hr IVPB Q24H [facility] Rx#: [id number] Sodium Chloride 0.9% 1, 2400 1350 1050 000 ml @ 150 mls/hr IV . Q6H40M [facility] Rx#:[id number] metroNIDAZOLE-NS PMX 500 100 100 100 mg In Saline 1 100ml.bag @ 100 mls/hr IVPB Q8H [facility] Rx#:[id number] Oral 1320 Output: Urine 300 Other: Voiding Method Toilet Toilet # Voids 3 1 # Bowel Movements 1 - Exam GENERAL: The patient is alert and oriented x3, not in any acute distress. Well developed, well nourished. HEENT: PERRLA. No pallor no icterus. CARDIOVASCULAR: S1 and S2 present. No murmurs, rubs, or gallops. PULMONARY: Chest is clear to auscultation, no wheezing or crackles. ABDOMEN: Softy, diffuse tenderness in bilateral lower quadrants. No rebound tenderness. Hyperactive bowel sounds. MUSCULOSKELETAL: No joint swelling or deformity. EXTREMITIES: No cyanosis, clubbing, or pedal edema. NEUROLOGICAL: Gross neurological examination did not reveal any focal deficits. - Labs CBC & Chem 7: 03/11/19 08:08 03/11/19 08:08 Labs: Abnormal Lab Results - Last 24 Hours (Table) 03/10/19 03/11/19 Range/Units 14:35 08:08 Potassium 3.4 L (3.5-5.1) mmol/L BUN 6 L (9-20) mg/dL Glucose 115 H (74-99) mg/dL Stool Lactoferrin POSITIVE H (NEGATIVE) Microbiology - Last 24 Hours (Table) 03/10/19 14:35 Stool Culture - Preliminary Stool Assessment and Plan Assessment: ASSESSMENT Intractable nausea and vomiting Acute diarrhea resolved History of rectal bowel syndrome Anxiety Bridgette deficiency anemia GERD History of diverticulosis PLAN: Patient has been started on Levaquin and Flagyl empirically that will be continued, as the patient continues to have diarrhea. Patient's white count has been stable at 11.7. He is on Zofran for his nausea. Patient's stool culture is positive for lactoferrin. Stool culture still pending. . GI on board and following the patient. Continue with the rest of the current medication regimen. Further recommendations to follow depending on the progress of the patient.
[2019-03-12] MEDS: SODIUM CHLORIDE 0.9% 1,000 ML IV SCH ×3 (04:38→19:42)
[2019-03-12] MEDS: METOCLOPRAMIDE 5 MG/ML 2 ML VIAL IVP SCH ×4 (04:38→21:32)
[2019-03-12] MEDS: metroNIDAZOLE-NS PMX 500 MG in SALINE 1 100ML.BAG IVPB SCH (06:05)
[2019-03-12 07:46] LABS: Basophils # (A) 0.1 k/uL (0-0.2); Basophils % (A) 1 %; Eosinophils # (A) 0.3 k/uL (0-0.7); Eosinophils % (A) 3 %; HCT 43.4 % (39.0-53.0); HGB 14.7 gm/dL (13.0-17.5); Lymphocytes % (A) 22 %; MCHC 33.9 g/dL (31.0-37.0); MCV 91.6 fL (80.0-100.0); Mean Platelet Volume 6.4; Monocytes # (A) 0.7 k/uL (0-1.0); Monocytes % (A) 7 %; Neutrophils # (A) 5.9 k/uL (1.3-7.7); Neutrophils % (A) 65 %; Platelet Count 317 k/uL (150-450); RBC 4.74 m/uL (4.30-5.90); RDW 12.4 % (11.5-15.5); WBC 9.1 k/uL (3.8-10.6)
[2019-03-12 07:57] LABS: African American GFR (CKD) >90 (>60 ml/min/1.73 sqM); Anion Gap 9 mmol/L; Blood Urea Nitrogen 4 mg/dL (9-20); Calcium 9.2 mg/dL (8.4-10.2); Carbon Dioxide 26 mmol/L (22-30); Chloride 105 mmol/L (98-107); Glucose 97 mg/dL (74-99); Potassium 3.5 mmol/L (3.5-5.1); Sodium 140 mmol/L (137-145)
[2019-03-12] MEDS: ENOXAPARIN 40 MG/0.4 ML SYRINGE SQ SCH (08:18)
[2019-03-12] MEDS: PANTOPRAZOLE 40 MG/10 ML VIAL IVP SCH (08:19)
[2019-03-12] MEDS: FAMOTIDINE 20 MG TAB PO SCH (08:19)
[2019-03-12] MEDS: ESCITALOPRAM 20 MG TAB PO SCH (08:19)
[2019-03-12] MEDS: busPIRone HCl 10 MG TAB PO SCH ×2 (08:19→21:28)
[2019-03-12] MEDS: DICYCLOMINE 20 MG TAB PO SCH ×4 (08:19→21:29)
[2019-03-12] MEDS: metroNIDAZOLE 500 MG TAB PO SCH ×2 (13:59→21:28)
--- NOTE | 2019-03-12 16:31 | P.PN ---
Subjective 33-year-old male with a past medical history of GERD, diverticulosis and irritable bowel syndrome coming in to the hospital with a chief complaint of intractable nausea and vomiting. Patient also also having diarrhea along with the symptoms. He is currently being treated for intractable nausea and vomiting. He has been started on Levaquin and Flagyl and admitted to the floor for further management. Patient had an EGD earlier this year with no significant findings. On 03/11/19 - Patient still complaining of nausea and vomiting. He has been throwing up and not able to keep anything down. He also complains of ongoing diarrhea. He has mild lower abdominal discomfort. He denies having any fevers chills or rigors. No chest pain or palpitations. No dysuria or hematuria. Patient's vitals within normal limits. His hemoglobin has been stable at 14.9. Electrolytes within normal limits except for potassium which is low at 3.4. His stool culture is still pending. Stool lactoferrin is positive. 03/12/2019 Patient still having intractable nausea and vomiting. Some complaining of right upper quadrant abdominal pain and the radius to the back because of which I'm obtaining ultrasound of the abdomen to rule out any cholelithiasis or cholecystitis patient doesn't have Azul's sign minimal tenderness in the right upper quadrant and will also obtain lipase level. Patient's to lactoferrin was positive and patient is on empiric antibiotics for infectious colitis his diarrhea although improved. Motrin will be discontinued and patient will be started on Protonix twice a day. Constitutional: Denied any fatigue denied any fever. Cardio vascular: denied any chest pain, palpitations Gastrointestinal as mentioned in the interval history Pulmonary: Denied any shortness of breath cough Neurologic denied any new focal deficits All inpatient medications were reviewed and appropriate changes in these medi cations as dictated in the interval history and assessment and plan. Objective - Vital Signs Vital signs: Vital Signs Temp 98.3 F 03/12/19 11:51 Pulse 65 03/12/19 11:51 Resp 16 03/12/19 11:51 BP 124/74 03/12/19 11:51 Pulse Ox 100 03/12/19 11:51 Intake & Output 03/11/19 03/12/19 03/12/19 18:59 06:59 18:59 Intake Total 1150 2700 Balance 1150 2700 Intake: Intake, IV Titration 1150 2100 Amount Levofloxacin 500Mg-D5w 100 Pmx 500 mg In Dextrose/ Water 1 100ml.bag @ 100 mls/hr IVPB Q24H [facility] Rx#: [id number] Sodium Chloride 0.9% 1, 1050 1800 000 ml @ 75 mls/hr IV . [id number] [facility] Rx#:[id number] metroNIDAZOLE-NS PMX 500 100 200 mg In Saline 1 100ml.bag @ 100 mls/hr IVPB Q8H [facility] Rx#:[id number] Oral 600 Other: Voiding Method Toilet Toilet # Voids 5 2 # Bowel Movements 2 - Exam PHYSICAL EXAMINATION: GENERAL: The patient is alert and oriented x3, not in any acute distress. Well developed, well nourished. HEENT: Pupils are round and equally reacting to light. EOMI. No scleral icterus. No conjunctival pallor. Normocephalic, atraumatic. No pharyngeal erythema. No thyromegaly. CARDIOVASCULAR: S1 and S2 present. No murmurs, rubs, or gallops. PULMONARY: Chest is clear to auscultation, no wheezing or crackles. ABDOMEN: Soft, no right upper quadrant abdominal tenderness, nondistended, normoactive bowel sounds. No palpable organomegaly. MUSCULOSKELETAL: No joint swelling or deformity. EXTREMITIES: No cyanosis, clubbing, or pedal edema. NEUROLOGICAL: Gross neurological examination did not reveal any focal deficits. SKIN: No rashes. - Labs CBC & Chem 7: 03/12/19 07:05 03/12/19 07:05 Labs: Abnormal Lab Results - Last 24 Hours (Table) 03/12/19 Range/Units 07:05 BUN 4 L (9-20) mg/dL Assessment and Plan Plan: -Acute diarrhea improved and patient is on empiric antibiotics patient's stool lactoferrin was positive patient is being treated for infectious colitis -Intractable nausea vomiting patient is taking being treated for gastritis further management as mentioned in the interval history Possibility of irritable bowel syndrome or functional diarrhea. -Iron deficiency anemia chronic without any acute blood loss -Gastroesophageal reflux disease
[2019-03-12] MEDS: PANTOPRAZOLE 40 MG TABLET PO SCH (17:32)
[2019-03-12 19:22] VITALS: PULSE 64
[2019-03-12] MEDS ORDERED: LEVOFLOXACIN 500 MG TAB PO SCH (21:00)
[2019-03-12] MEDS: ALPRAZolam 0.5 MG TAB PO PRN (21:29)
--- NOTE | 2019-03-12 22:00 | P.PN ---
Subjective Progress Note Date: 03/12/19 Principal diagnosis: intractable nausea and vomiting, coffee ground emesis, history of irritable bowel syndrome Patient is seen lying in bed reports a few loose stools this morning. Continues to report nausea and vomiting. Also reporting right upper quadrant abdominal pain. Objective - Vital Signs Vital signs: Vital Signs Temp 99.1 F 03/12/19 19:20 Pulse 64 03/12/19 19:20 Resp 16 03/12/19 19:20 BP 143/88 03/12/19 19:20 Pulse Ox 100 03/12/19 11:51 Intake & Output 03/12/19 03/12/19 03/13/19 06:59 18:59 06:59 Intake Total 2700 Balance 2700 Intake: Intake, IV Titration 2100 Amount Levofloxacin 500Mg-D5w 100 Pmx 500 mg In Dextrose/ Water 1 100ml.bag @ 100 mls/hr IVPB Q24H [facility] Rx#: [id number] Sodium Chloride 0.9% 1, 1800 000 ml @ 75 mls/hr IV . [id number] [facility] Rx#:[id number] metroNIDAZOLE-NS PMX 500 200 mg In Saline 1 100ml.bag @ 100 mls/hr IVPB Q8H [facility] Rx#:[id number] Oral 600 Other: Voiding Method Toilet Toilet # Voids 5 2 # Bowel Movements 2 - Exam On physical examination, patient appears comfortable in no apparent distress. HEAD: Normocephalic, atraumatic. EYES: No scleral icterus. No conjunctival injection. MOUTH: No lesions, tongue midline. NECK: Trachea midline, no gross abnormalities. ABDOMEN: Soft. Bowel sounds are positive. No organomegaly. No guarding or rigidity. EXTREMITIES: No pedal edema. SKIN: No rashes, no jaundice. NEUROLOGIC: Alert and oriented x3. No focal deficits. - Labs CBC & Chem 7: 03/12/19 07:05 03/12/19 07:05 Labs: Abnormal Lab Results - Last 24 Hours (Table) 03/12/19 Range/Units 07:05 BUN 4 L (9-20) mg/dL Microbiology - Last 24 Hours (Table) 03/10/19 14:35 Stool Culture - Preliminary Stool Assessment and Plan (1) Intractable vomiting Narrative/Plan: 33-year-old with known history of anxiety and irritable bowel syndrome who pres nausea and vomiting and coffee-ground emesis. Patient had EGD earlier in the year with no significant findings. Hemoglobin stable. Current Visit: Yes Status: Acute Code(s): R11.10 - VOMITING, UNSPECIFIED SNOMED Code(s): 879687560 (2) Irritable bowel syndrome Current Visit: Yes Status: Acute Code(s): K58.9 - IRRITABLE BOWEL SYNDROME WITHOUT DIARRHEA SNOMED Code(s): 95199661 Plan: supportive care Diet as tolerated Continue dicyclomine [id number] Continue Zofran Continue Protonix daily Continue Pepcid twice daily Ultrasound abdomen ordered today Thank you for allowing us to participate in the care of the patient we will continue to follow
[2019-03-13] MEDS: MORPHINE SULFATE 2 MG/ML SYRINGE IVP PRN (01:45)
[2019-03-13] MEDS: ONDANSETRON 4 MG/2 ML VIAL IVP PRN (01:46)
[2019-03-13] MEDS: METOCLOPRAMIDE 5 MG/ML 2 ML VIAL IVP SCH ×2 (04:31→11:21)
[2019-03-13] MEDS: SODIUM CHLORIDE 0.9% 1,000 ML IV SCH (04:32)
[2019-03-13 04:35] VITALS: BP 130/79; RESP 18; TEMP 97.7
[2019-03-13] MEDS: metroNIDAZOLE 500 MG TAB PO SCH (06:00)
[2019-03-13] MEDS: busPIRone HCl 10 MG TAB PO SCH (08:16)
[2019-03-13] MEDS: DICYCLOMINE 20 MG TAB PO SCH (08:16)
[2019-03-13] MEDS: ESCITALOPRAM 20 MG TAB PO SCH (08:16)
[2019-03-13] MEDS: PANTOPRAZOLE 40 MG TABLET PO SCH (08:16)
[2019-03-13] MEDS: ENOXAPARIN 40 MG/0.4 ML SYRINGE SQ SCH (08:17)
--- NOTE | 2019-03-13 08:39 | US ---
EXAMINATION TYPE: US gallbladder DATE OF EXAM: 03/13/2019 COMPARISON: CT May 20, 2018. MR enterography June 20, 2018. CLINICAL HISTORY: ABD pain. Pain and vomiting. EXAM MEASUREMENTS: Liver Length: 15.5 cm Gallbladder Wall: .2 cm CBD: .4 cm Right Kidney: 11.3 4.7 x 5.1 cm Pancreas: Obscured by bowel gas Liver: wnl Gallbladder: No stones seen Evidence for sonographic Azul's sign: No CBD: wnl Right Kidney: wnl Pancreas is suboptimally seen on images stated secondary to shadowing from overlying bowel gas per te chnologist. Visualized liver shows no worrisome intrahepatic mass or intrahepatic ductal dilatation. Gallbladder is seen without shadowing mobile gallstones. IMPRESSION: No gallstones or ultrasound evidence for acute cholecystitis.
[2019-03-13] MEDS ORDERED: PANTOPRAZOLE 40 MG TABLET PO SCH (09:00)
--- NOTE | 2019-03-13 16:25 | P.DS ---
Providers Date of admission: 03/08/19 11:26 Expected date of discharge: 03/13/19 Attending physician: Margarita Ramos Consults: 03/06/19 22:11 Consult Physician Routine Consulting Provider: Perry Mendoza Consult Reason/Comments: Anxiety Do you want consulting provider notified?: Yes Consult Physician Routine Consulting Provider: Leeann Cuevas Consult Reason/Comments: intractable vomiting Do you want consulting provider notified?: Yes Primary care physician: Pao Clarke Hospital Course: Final diagnosis -Acute diarrhea -Intractable nausea vomiting -Possibility of irritable bowel syndrome or functional diarrhea. -Iron deficiency anemia chronic without any acute blood loss -Gastroesophageal reflux disease - history of depression/anxiety Discharge disposition Being discharged in a stable condition with guarded prognosis to home and will follow-up with GI Dr. Avila in the outpatient setting in 1-2 weeks. Patient will follow-up with primary care provider Dr. Clarke upon discharge. Patient will continue on a short course of oral antibiotics in the form of Flagyl and Levaquin. Total time taken is 35 minutes. History of present illness This is a 33-year-old male who was recently admitted with intractable nausea and vomiting and having diarrhea as well and was being closely monitored. GI was consulted an recommending no further interventions at this time. Patient will follow-up upon discharge in the outpatient setting. Today patient is sitting up at the site of the bed in no acute distress with some mild anxiety stating that he would like to go home today. During hospitalization psychiatry saw the patient and made some changes to medications and will follow-up with psychiatry in the outpatient setting. Patient denies any thoughts of suicide or wanting to harm self or others. Patient states since yesterday he tolerated all of his meals and tolerated breakfast this morning with no nausea, vomiting, or diarrhea. An ultrasound of the abdomen was done showing no gallstones and no cholecystitis at this time. Patient denies any chest pain, shortness of breath, or palpitations at this time. Patient is afebrile. Currently patient's condi tion is stable with much improvement and will be discharged home today. On exam vital signs are stable. Temp is 97.7F, pulse is 64, respirations are 18, blood pressure is 130/79, oxygen saturation is 99% on room air. S1 and S2 are normal. Respiratory system shows clear to auscultation. Abdomen is soft and nontender. Nervous system shows no focal deficits and gait is steady. Please refer to medication reconciliation sheet for a list of medications. Patient Condition at Discharge: Fair Plan - Discharge Summary Discharge Rx Participant: No New Discharge Prescriptions: New busPIRone HCl [Buspar] 20 mg PO BID 30 Days #60 tab metroNIDAZOLE [Flagyl] 500 mg PO BID 5 Days #10 tab Levofloxacin [Levaquin] 500 mg PO HS 5 Days #5 tab Escitalopram [Lexapro] 20 mg PO DAILY 30 Days #30 tab Pantoprazole [Protonix] 40 mg PO AC-BID 30 Days #60 tablet. ALPRAZolam [Xanax] 0.5 mg PO BID PRN #10 tab PRN Reason: Anxiety Continue Ondansetron HCl [Zofran] 8 mg PO Q8H PRN PRN Reason: Nausea Dicyclomine [Bentyl] 20 mg PO QID Ibuprofen [Motrin Ib] 800 mg PO Q6H PRN PRN Reason: Pain Discontinued busPIRone HCl [Buspar] 10 mg PO BID Sertraline [Zoloft] 100 mg PO DAILY Discharge Medication List Ondansetron HCl [Zofran] 8 mg PO Q8H PRN 04/09/18 [History] Dicyclomine [Bentyl] 20 mg PO QID 03/06/19 [History] Ibuprofen [Motrin Ib] 800 mg PO Q6H PRN 03/06/19 [History] ALPRAZolam [Xanax] 0.5 mg PO BID PRN #10 tab 03/13/19 [Rx] Escitalopram [Lexapro] 20 mg PO DAILY 30 Days #30 tab 03/13/19 [Rx] Levofloxacin [Levaquin] 500 mg PO HS 5 Days #5 tab 03/13/19 [Rx] Pantoprazole [Protonix] 40 mg PO AC-BID 30 Days #60 tablet. 03/13/19 [Rx] busPIRone HCl [Buspar] 20 mg PO BID 30 Days #60 tab 03/13/19 [Rx] metroNIDAZOLE [Flagyl] 500 mg PO BID 5 Days #10 tab 03/13/19 [Rx] Follow up Appointment(s)/Referral(s): Pao Clarke MD [Primary Care Provider] - 1-2 days (Please call office and make follow up appointment .) Stephen Avila MD [STAFF PHYSICIAN] - 04/03/19 1:00 pm (You will be seen by Suha garza Appointment time is at 1:15 but you will need to arrive at 1:00.) Patient Instructions/Handouts: Alprazolam (By mouth), Buspirone (By mouth), Metronidazole (By mouth), Levofloxacin (By mouth), Pantoprazole (By mouth), Escitalopram (By mouth), Depression (DC), Anxiety (GEN), Suicide Prevention (DC) Activity/Diet/Wound Care/Special Instructions: Activity Limited until follow-up Continue course of antibiotics until complete Follow-up with gastroenterology in the outpatient setting Follow-up with primary care provider upon discharge Continue current diet and advance as tolerated Discharge Disposition: HOME SELF-CARE
== END 2019-03-13 13:41 | disposition home or self-care (01) | DRG 391 ==
LOC: EC 14:38 → 3NMEDONC 22:10 → OBSVTOIN 03-08 11:26 → 3NMEDONC 03-09 16:48
PROVIDERS: ADMIT Hospitalist; ATTEND Hospitalist
DX: K58.0 Irritable bowel syndrome with diarrhea (principal); K22.6 Gastro-esophageal laceration-hemorrhage syndrome; R45.851 Suicidal ideations; D50.9 Iron deficiency anemia, unspecified; F12.10 Cannabis abuse, uncomplicated; F32.9 Major depressive disorder, single episode, unspecified; F41.9 Anxiety disorder, unspecified; K21.9 Gastro-esophageal reflux disease without esophagitis; Z79.899 Other long term (current) drug therapy; Z80.0 Family history of malignant neoplasm of digestive organs; Z80.3 Family history of malignant neoplasm of breast; Z82.0 Family history of epilepsy and other diseases of the nervous system; Z82.49 Family history of ischemic heart disease and other diseases of the circulatory system; Z80.49 Family history of malignant neoplasm of other genital organs; Z87.891 Personal history of nicotine dependence; Z88.0 Allergy status to penicillin; Z88.2 Allergy status to sulfonamides; Z88.8 Allergy status to other drugs, medicaments and biological substances
CPT/HCPCS: 36415; 71046; 74018; 76705; 80048; 80076; 81003; 82271; 82272; 82728; 83540; 83550; 83630; 83690; 83735; 85025; 87045; 87046; 87324; 93005; 96361; 96374; 96375; 96376; 99285

== ENCOUNTER 2019-05-11 12:16 | Observation (INO) | payer OTHER ==
[2019-05-11] MEDS ORDERED: SODIUM CHLORIDE 0.9% 1,000 ML IV STA (13:00)
[2019-05-11] MEDS ORDERED: MORPHINE SULFATE 4 MG/ML SYRINGE IVP STA (13:01)
[2019-05-11] MEDS ORDERED: ONDANSETRON 4 MG/2 ML VIAL IVP STA (13:01)
[2019-05-11 13:34] LABS: Basophils # (A) 0.1 k/uL (0-0.2); Basophils % (A) 1 %; Eosinophils # (A) 0.2 k/uL (0-0.7); Eosinophils % (A) 1 %; HCT 43.9 % (39.0-53.0); HGB 14.9 gm/dL (13.0-17.5); Lymphocytes # (A) 0.7 k/uL (1.0-4.8); Lymphocytes % (A) 4 %; MCH 31.5 pg (25.0-35.0); MCHC 33.9 g/dL (31.0-37.0); MCV 93.2 fL (80.0-100.0); Monocytes # (A) 0.3 k/uL (0-1.0); Monocytes % (A) 2 %; Neutrophils # (A) 16.9 k/uL (1.3-7.7); Neutrophils % (A) 93 %; Platelet Count 340 k/uL (150-450); RBC 4.71 m/uL (4.30-5.90); RDW 12.2 % (11.5-15.5); WBC 18.2 k/uL (3.8-10.6)
[2019-05-11 13:43] LABS: ALT 20 U/L (21-72); AST 28 U/L (17-59); African American GFR (CKD) >90 (>60 ml/min/1.73 sqM); Albumin 4.4 g/dL (3.5-5.0); Alkaline Phosphatase 78 U/L (38-126); Amylase 38 U/L (30-110); Anion Gap 10 mmol/L; Blood Urea Nitrogen 11 mg/dL (9-20); Calcium 9.2 mg/dL (8.4-10.2); Carbon Dioxide 19 mmol/L (22-30); Chloride 112 mmol/L (98-107); Glucose 149 mg/dL (74-99); Non-African American GFR(CKD) >90 (>60 ml/min/1.73 sqM); Potassium 4.7 mmol/L (3.5-5.1); Sodium 141 mmol/L (137-145); Total Bilirubin 0.8 mg/dL (0.2-1.3); Total Protein 7.2 g/dL (6.3-8.2)
--- NOTE | 2019-05-11 14:42 | ED ---
General Adult HPI - General Chief complaint: Abdominal Pain Stated complaint: Abd Pain, Vomiting Time Seen by Provider: 05/11/19 12:28 Source: patient, RN notes reviewed Mode of arrival: ambulatory Limitations: no limitations - History of Present Illness Initial comments: Patient is a 33-year-old male presented for abdominal pain, nausea vomiting, for the past few hours. Patient is a history of colitis and IBS as well as hyperemesis cannabinoid syndrome. Patient states he was seen at [facility] this morning and sent home. States he called his doctor and she wanted him to present back to the emergency department to be admitted. Unsure about diverticulitis. Patient apparently has presented to [facility] several times for similar complaints. CT abdomen and pelvis with oral and IV contrast was obtained from [facility] this morning at around 8:45 AM. This showed no acute significant finding to account for patient's symptoms. Patient has no other complaints at this time including shortness of breath, chest pain, headache, or visual changes. - Related Data Home Medications Medication Instructions Recorded Confirmed Ondansetron HCl [Zofran] 8 mg PO Q8H PRN 04/09/18 03/06/19 Dicyclomine [Bentyl] 20 mg PO QID 03/06/19 03/06/19 Ibuprofen [Motrin Ib] 800 mg PO Q6H PRN 03/06/19 03/06/19 Previous Rx's Medication Instructions Recorded ALPRAZolam [Xanax] 0.5 mg PO BID PRN #10 tab 03/13/19 Escitalopram [Lexapro] 20 mg PO DAILY 30 Days #30 tab 03/13/19 Levofloxacin [Levaquin] 500 mg PO HS 5 Days #5 tab 03/13/19 Pantoprazole [Protonix] 40 mg PO AC-BID 30 Days #60 03/13/19 tablet. busPIRone HCl [Buspar] 20 mg PO BID 30 Days #60 tab 03/13/19 metroNIDAZOLE [Flagyl] 500 mg PO BID 5 Days #10 tab 03/13/19 Allergies Allergy/AdvReac Type Severity Reaction Status Date / Time amoxicillin [From Augmentin] Allergy Unknown Verified 05/11/19 15:49 carbinoxamine maleate Allergy Rash/Hives Verified 05/11/19 15:49 [From Rondec] clavulanic acid Allergy Unknown Verified 05/11/19 15:49 [From Augmentin] pseudoephedrine HCl Allergy Rash/Hives Verified 05/11/19 15:49 [From Rondec] sulfamethoxazole Allergy Vomiting Verified 05/11/19 15:49 [From Bactrim] trimethoprim [From Bactrim] Allergy Vomiting Verified 05/11/19 15:49 prochlorperazine AdvReac Unknown Verified 05/11/19 15:49 [From Compazine] Review of Systems ROS Statement: Those systems with pertinent positive or pertinent negative responses have been documented in the HPI. ROS Other: All systems not noted in ROS Statement are negative. Past Medical History Past Medical History: GERD/Reflux, Musculoskeletal Disorder Additional Past Medical History / Comment(s): LT KNEE GIVES OUT AT TIMES- NO SPECIFIC INJURY carpel tunnel and ibs , colitis, diverticulosis History of Any Multi-Drug Resistant Organisms: None Reported, MRSA Date of last positivie culture/infection: 2016 MDRO Source:: abdomen Past Surgical History: Hernia Repair, Orthopedic Surgery Additional Past Surgical History / Comment(s): colonscopy pilonODIal cyst, ibs Past Anesthesia/Blood Transfusion Reactions: No Reported Reaction Additional Past Anesthesia/Blood Transfusion Reaction / Comment(s): PT HAS NEVER HAD SURGERY Past Psychological History: Anxiety, Depression Smoking Status: Never smoker Past Alcohol Use History: None Reported Past Drug Use History: Marijuana - Past Family History Mother Family Medical History: Cancer Additional Family Medical History / Comment(s): BREAST,CERVICAL & COLON CA Father Family Medical History: Hypertension Additional Family Medical History / Comment(s): HYDROCEPHALIS,SEIZURE DISORDER, ADRENOLEUKODYSTROPHY General Exam Limitations: no limitations General appearance: anxious Head exam: Present: atraumatic, normocephalic, normal inspection Eye exam: Present: normal appearance, PERRL, EOMI. Absent: scleral icterus, conjunctival injection, periorbital swelling ENT exam: Present: normal exam, mucous membranes moist Neck exam: Present: normal inspection, full ROM. Absent: tenderness, meningismus, lymphadenopathy Respiratory exam: Present: normal lung sounds bilaterally. Absent: respiratory distress, wheezes, rales, rhonchi, stridor Cardiovascular Exam: Present: regular rate, normal rhythm, normal heart sounds. Absent: systolic murmur, diastolic murmur, rubs, gallop, clicks GI/Abdominal exam: Present: soft, tenderness (mild lower abdominal tenderness), normal bowel sounds. Absent: distended, guarding, rebound, rigid Neurological exam: Present: alert Psychiatric exam: Present: normal affect, normal mood Course Vital Signs 05/11/19 05/11/19 05/11/19 12:20 13:20 14:18 Temperature 97.8 F Pulse Rate 74 71 81 Respiratory 18 18 18 Rate Blood Pressure 150/92 136/81 136/81 O2 Sat by Pulse 100 100 99 Oximetry - Reevaluation(s) Reevaluation #1: 05/11/19 15:16 Patient was reevaluated and did have some improvement in pain. He is still rating his pain at an 8 out of 10. He initially had a few episodes of emesis on presentation however has not had any since that time. Medical Decision Making - Medical Decision Making I reviewed recent GI notes. Patient had a EGD this year that had no significant findings. Ultrasound of the gallbladder showed no gallstones or ultrasound evidence for acute cholecystitis. CBC does show white blood cell count of 18.2. This is likely secondary to vomiting. CMP unremarkable. Anion gap is normal. Urinalysis and urine drug screen pending. Patient has a history of hyperemesis cannabinoid syndrome. CT abdomen and pelvis with oral and IV contrast was obtained and reviewed from this morning at [facility] and was unremarkable. I reevaluated patient. Although his significant vomiting did improve throughout his stay he still is 8 out of [address] Clarke sent patient back to emergency department for admission I consulted with Dr. Briscoe. He does accept this admission. GI will be consulted. - Lab Data Result diagrams: 05/11/19 13:20 05/11/19 13:20 Lab Results 05/11/19 05/11/19 05/11/19 Range/Units 13:20 13:20 13:20 WBC 18.2 H (3.8-10.6) k/uL RBC 4.71 (4.30-5.90) m/uL Hgb 14.9 (13.0-17.5) gm/dL Hct 43.9 (39.0-53.0) % MCV 93.2 (80.0-100.0) fL MCH 31.5 (25.0-35.0) pg MCHC 33.9 (31.0-37.0) g/dL RDW 12.2 (11.5-15.5) % Plt Count 340 (150-450) k/uL Neutrophils % 93 % Lymphocytes % 4 % Monocytes % 2 % Eosinophils % 1 % Basophils % 1 % Neutrophils # 16.9 H (1.3-7.7) k/uL Lymphocytes # 0.7 L (1.0-4.8) k/uL Monocytes # 0.3 (0-1.0) k/uL Eosinophils # 0.2 (0-0.7) k/uL Basophils # 0.1 (0-0.2) k/uL Sodium 141 (137-145) mmol/L Potassium 4.7 (3.5-5.1) mmol/L Chloride 112 H (98-107) mmol/L Carbon Dioxide 19 L (22-30) mmol/L Anion Gap 10 mmol/L BUN 11 (9-20) mg/dL Creatinine 0.70 (0.66-1.25) mg/dL Est GFR (CKD-EPI)AfAm >90 (>60 ml/min/1.73 sqM) Est GFR (CKD-EPI)NonAf >90 (>60 ml/min/1.73 sqM) Glucose 149 H (74-99) mg/dL Plasma Lactic Acid Carlos 1.7 (0.7-2.0) mmol/L Calcium 9.2 (8.4-10.2) mg/dL Total Bilirubin 0.8 (0.2-1.3) mg/dL AST 28 (17-59) U/L ALT 20 L (21-72) U/L Alkaline Phosphatase 78 (38-126) U/L Total Protein 7.2 (6.3-8.2) g/dL Albumin 4.4 (3.5-5.0) g/dL Amylase 38 (30-110) U/L Lipase 77 (23-300) U/L Disposition Clinical Impression: Intractable abdominal pain Disposition: ADMITTED IP TO THIS HOSP Condition: Good Is patient prescribed a controlled substance at d/c from ED?: No Referrals: Pao Clarke MD [Primary Care Provider] - 1-2 days Time of Disposition: 15:20
[2019-05-11] MEDS ORDERED: CAPSAICIN 0.025% CREAM 60 GM TUBE TOPICAL STA (15:17)
[2019-05-11] MEDS ORDERED: KETOROLAC 30 MG/ML 1 ML VIAL IVP STA (15:18)
[2019-05-11] MEDS ORDERED: NALOXONE 0.4 MG/ML 1 ML VIAL IV PRN (15:53)
[2019-05-11] MEDS ORDERED: KETOROLAC 30 MG/ML 1 ML VIAL IVP PRN (15:53)
[2019-05-11 15:56] LABS: Appearance,Urine Clear (Clear); Bilirubin,Urine Negative (Negative); Blood,Urine Negative (Negative); Color,Urine Light Yellow; Glucose,Urine (UA) 2+ (Negative); Leukocyte Esterase,Urine Negative (Negative); Nitrite,Urine Negative (Negative); PH, Urine 8.5 (5.0-8.0); Protein,Urine Trace (Negative); Specific Gravity,Urine 1.033 (1.001-1.035); Urobilinogen,Urine <2.0 mg/dL (<2.0)
[2019-05-11] MEDS ORDERED: diphenhydrAMINE 50 MG/ML 1 ML VIAL IVP PRN (15:57)
[2019-05-11 16:12] LABS: Amphetamine Screen,Urine Not Detected (NotDetected); Barbiturate Screen,Urine Not Detected (NotDetected); Benzodiazepines Screen,Urine Not Detected (NotDetected); Cocaine Screen,Urine Not Detected (NotDetected); Methadone Screen, Urine Not Detected (NotDetected); Opiate Screen,Urine Detected (NotDetected); Oxycodone Screen, Urine Not Detected (NotDetected); Phencyclidine Screen,Urine Not Detected (NotDetected); Tricyclic Antidepressant,Urine Not Detected (NotDetected); Urn Cannabinoid Scrn Detected (NotDetected)
[2019-05-11 16:31] LABS: Ketones,Urine 3+ (Negative)
[2019-05-11] MEDS: SODIUM CHLORIDE 0.9% 1,000 ML IV SCH (16:37)
[2019-05-11] MEDS: MORPHINE SULFATE 4 MG/ML SYRINGE IV PRN ×2 (18:23→23:00)
[2019-05-11] MEDS: METOCLOPRAMIDE 5 MG/ML 2 ML VIAL IVP PRN (18:23)
[2019-05-11 22:05] VITALS: BMI 26.9
[2019-05-11] MEDS: ONDANSETRON 4 MG/2 ML VIAL IVP PRN (22:59)
[2019-05-11] MEDS ORDERED: TEMAZEPAM 15 MG CAP PO PRN (23:11)
[2019-05-11] MEDS ORDERED: HYDROcodone/APAP 5-325MG 1 EACH TAB PO PRN (23:11)
[2019-05-11] MEDS ORDERED: ALPRAZolam 0.25 MG TAB PO PRN (23:11)
[2019-05-11] MEDS ORDERED: ACETAMINOPHEN TAB 500 MG TAB PO PRN (23:11)
[2019-05-11] MEDS: PANTOPRAZOLE 40 MG/10 ML VIAL IVP SCH (23:38)
[2019-05-12] MEDS: SODIUM CHLORIDE 0.9% 1,000 ML IV SCH ×4 (00:19→22:20)
[2019-05-12] MEDS ORDERED: HYOSCYAMINE SULFATE 0.125 MG TAB PO PRN (00:50)
[2019-05-12] MEDS: METOCLOPRAMIDE 5 MG/ML 2 ML VIAL IVP PRN ×3 (04:23→22:44)
[2019-05-12] MEDS: HYDROmorphone 0.5 MG/0.5 ML SYRINGE IVP PRN ×5 (04:25→22:37)
--- NOTE | 2019-05-12 04:29 | HP ---
HISTORY AND PHYSICAL DATE OF SERVICE: 05/11/2019 CHIEF COMPLAINT: Nausea, vomiting and abdominal pain. HISTORY OF PRESENT ILLNESS: This 33-year-old gentleman with a past medical history of multiple medical problems including possible irritable bowel syndrome, history of GERD, history of hernia repair, history of anxiety, depression, being followed by Dr. Clarke in the outpatient setting, has complaints of incessant vomiting and nausea for the last several days. Patient was dehydrated. Patient also complained of upper abdominal pain. Patient went to [facility]. CT scan was normal and the patient was sent to [facility] for further evaluation and treatment. There is no history of fever, rigors. No history of headache, loss of consciousness or seizures. The patient reports smoking THC on and off. PAST MEDICAL HISTORY: History of GERD, DJD, history of hernia repair, history of anxiety, depression. MEDICATIONS: Home medications are: 1. Levsin 0.125 mg p.o. b.i.d. p.r.n. 2. BuSpar 20 mg p.o. b.i.d. 3. Zofran 8 mg daily p.r.n. 4. Pepcid 40 mg daily p.r.n. 5. Lexapro 20 mg daily. 6. Xanax 0.5 p.o. b.i.d. p.r.n. ALLERGIES: AMOXICILLIN, AUGMENTIN, RONDEC, BACTRIM, AND COMPAZINE. FAMILY HISTORY: History of breast cancer, colon cancer in the family. SOCIAL HISTORY: No history of smoking. History of THC. REVIEW OF SYSTEMS: ENT: No diminished vision. No diminished hearing. CARDIOVASCULAR: No angina or palpitations. RESPIRATORY: As mentioned earlier. GI as mentioned earlier. no dysuria or hematuria. Nervous system: No numbness or weakness. ALLERGY/IMMUNOLOGY: No asthma or hayfever. MUSCULOSKELETAL as mentioned earlier. HEMATOLOGY/ONCOLOGY: No history of anemia. ENDOCRINE: No history of diabetes or hypothyroidism. CONSTITUTIONAL: As mentioned earlier. DERMATOLOGY: Negative. RHEUMATOLOGY negative. PSYCHIATRY as mentioned earlier. PHYSICAL EXAM: Patient is alert, oriented x3. The pulse is 61. Blood pressure 105/64, respiration 14, temperature 98.6, pulse ox 92% on room air. HEENT: Conjunctivae normal. Oral mucosa moist. NECK is no jugular venous distention. No carotid bruit. No lymph node enlargement. Cardiovascular system: S1, S2. No S3, no S4. RESPIRATORY: Breath sounds diminished in the bases. No rhonchi. No crackles. ABDOMEN: Soft, nontender. No mass palpable. LEGS: Soft, minimal diffuse discomfort in the epigastrium. No guarding. No rigidity. No mass palpable. Legs no edema. No swelling. NERVOUS SYSTEM: Higher functions as mentioned earlier. Moves all four limbs. No focal motor or sensory deficits. SKIN: No ulcer, no rashes and no bleeding. JOINTS: No active deforming arthropathy. LABS: WBC 18.2, hemoglobin 14.9 sodium 140, potassium 4.7. ASSESSMENT: 1. Significant intractable nausea and vomiting with abdominal pain with possible acute gastritis. 2. Possible cyclical vomiting syndrome. 3. Increased WBC. 4. Positive THC. 5. History of gastroesophageal reflux disease. 6. History of degenerative joint disease. 7. History of hernia repair. 8. History of anxiety, depression. RECOMMENDATIONS AND DISCUSSION: In this 33-year-old gentleman who presented with multiple complex medical issues, we will monitor the patient closely. Continue the current medications, management and symptomatic treatment. We will initiate IV proton pump inhibitors. Keep the patient n.p.o. IV fluids. Symptomatic treatment. Otherwise, pain medications. DVT prophylaxis. Guarded prognosis because of multiple complex medical issues. Further recommendations to follow. We will resume the home medication as well. Otherwise, I recommend the patient follow up closely with primary physician in the outpatient setting. Further recommendations to follow. A copy of this forwarded to Dr. Clarke who is the primary physician. MMODL / IJN: [id number] /
[2019-05-12 07:48] LABS: Basophils % (A) 0 %; Eosinophils # (A) 0.2 k/uL (0-0.7); Eosinophils % (A) 2 %; HCT 40.3 % (39.0-53.0); HGB 13.2 gm/dL (13.0-17.5); Lymphocytes # (A) 2.4 k/uL (1.0-4.8); Lymphocytes % (A) 24 %; MCH 31.3 pg (25.0-35.0); MCHC 32.7 g/dL (31.0-37.0); MCV 95.5 fL (80.0-100.0); Mean Platelet Volume 6.1; Monocytes # (A) 0.6 k/uL (0-1.0); Monocytes % (A) 6 %; Neutrophils # (A) 6.4 k/uL (1.3-7.7); Neutrophils % (A) 66 %; Platelet Count 295 k/uL (150-450); RBC 4.23 m/uL (4.30-5.90); RDW 12.5 % (11.5-15.5); WBC 9.7 k/uL (3.8-10.6)
[2019-05-12 07:59] LABS: African American GFR (CKD) >90 (>60 ml/min/1.73 sqM); Anion Gap 6 mmol/L; Blood Urea Nitrogen 11 mg/dL (9-20); Calcium 8.2 mg/dL (8.4-10.2); Carbon Dioxide 22 mmol/L (22-30); Chloride 114 mmol/L (98-107); Glucose 88 mg/dL (74-99); Non-African American GFR(CKD) >90 (>60 ml/min/1.73 sqM); Sodium 142 mmol/L (137-145)
[2019-05-12] MEDS: busPIRone HCl 10 MG TAB PO SCH ×2 (09:38→20:53)
[2019-05-12] MEDS: ONDANSETRON 4 MG/2 ML VIAL IVP PRN ×2 (09:38→18:12)
[2019-05-12] MEDS: ESCITALOPRAM 20 MG TAB PO SCH (09:38)
[2019-05-12] MEDS: HEPARIN SODIUM,PORCINE 5,000 UNIT/ML 1 ML VIAL SQ SCH ×2 (09:38→20:53)
[2019-05-12] MEDS: PANTOPRAZOLE 40 MG/10 ML VIAL IVP SCH ×2 (09:39→20:53)
--- NOTE | 2019-05-12 17:04 | CONS ---
CONSULTATION DATE OF SERVICE: May 12, 2019. REQUESTING PHYSICIAN: Dr. Clarke. REASON FOR CONSULTATION: Nausea and vomiting. HISTORY OF PRESENT ILLNESS: The patient is a 33 -year-old pleasant white male with history of irritable bowel syndrome diagnosed at age 17, history of gastroesophageal reflux disease who was admitted to hospital with acute onset of severe nausea, vomiting, and abdominal pain that started 2 days ago. The patient states that he went to the emergency room at [facility], had a CT scan of the abdomen and pelvis over there that was normal. He was sent here for further evaluation and management. This morning he is feeling better. He threw up at least 10 times yesterday. The abdominal pain is improving. He denies any fever, chills, or night sweats. He has been having these symptoms since age 17. He gets hospitalized once or twice a year for the same symptoms, treated symptomatically and was discharged home. He recalls having an upper endoscopy by Dr. Avila about a year ago that showed some gastritis. In between the episodes, he is asymptomatic. He denies any recent weight loss. PAST MEDICAL HISTORY: Significant for IBS, GERD, anxiety, depression. PAST SURGICAL HISTORY: Hernia repair. MEDICATIONS: At home: Levsin, BuSpar, Zofran, Pepcid, Lexapro, Xanax. ALLERGIES: AMOXICILLIN, AUGMENTIN, BACTRIM, COMPAZINE. SOCIAL HISTORY: No smoking, but he smokes marijuana. FAMILY HISTORY: Mother had breast cancer. REVIEW OF SYSTEMS: CARDIOPULMONARY: No chest pain, shortness of breath. GENITOURINARY: No dysuria or hematuria. MUSCULOSKELETAL unremarkable. SKIN unremarkable. ENDOCRINE unremarkable. PSYCHIATRIC unremarkable. NEUROLOGY unremarkable. ENT/vision unremarkable. CONSTITUTIONAL: No recent weight loss, fever or chills or night sweats. PHYSICAL EXAMINATION: VITAL SIGNS: Temperature 97.2, blood pressure is 116/60, pulse rate 61. HEENT examination unremarkable. Conjunctivae pink. Sclerae anicteric. Oral cavity no lesions. NECK: No JVD or lymph node enlargement. CHEST: Clear to auscultation. HEART: Regular rate and rhythm. ABDOMEN: Soft. Bowel sounds are positive. No organomegaly. EXTREMITIES: No pedal edema. SKIN: No rashes. NEUROLOGICAL: He is alert and oriented times three. No focal deficits. LABS: From today WBC 9.7, hemoglobin 13.2, platelets normal. Basic metabolic panel is within normal limits. Amylase and lipase are normal. IMPRESSION: This is a patient with longstanding history of IBS and GERD, and possible cyclic vomiting syndrome, presents to the hospital with intermittent episodes of nausea, vomiting, and abdominal pain for the last 16 years duration. He has these episodes once every 6 months requiring hospitalization. The last one was about 6 months ago. This episode started yesterday with multiple episodes of nausea, vomiting, but he is doing much better. Presently on IV Protonix, Zofran as needed and Reglan as needed, doing better. RECOMMENDATIONS: 1. Start him on a clear liquid diet. 2. Continue with antiemetics and proton pump inhibitors. 3. No plans for any endoscopy intervention at the present time. 4. If symptoms improve, the diet can be advanced as tolerated. He can be discharged home in 1-2 days. Thank you for this consultation. SAL / GHADA: [id number] /
--- NOTE | 2019-05-12 19:19 | PN ---
PROGRESS NOTE DATE OF SERVICE: 05/12/2019 This 33-year-old gentleman admitted with intractable nausea and vomiting is feeling slightly better today. No chest pain. No palpitation. Dr. Cuevas seen the patient and recommended the food to be advanced to clear liquids. No chest pain. No palpitations. No fever. White count is improved. EXAM: Alert and oriented x3. Pulse is 79, blood pressure 129/79, respiration 18, temperature 98 degrees, pulse ox 99% on room air. HEENT: Conjunctivae normal. Oral mucosa moist. NECK: No jugular venous distention. No lymph node enlargement. CARDIOVASCULAR: S1, S2. RESPIRATORY: Diminished breath sounds at the bases. No rhonchi, no crackles. ABDOMEN: Soft. Mild diffuse discomfort in epigastrium. No guarding, no rigidity. LEGS: No swelling. NERVOUS SYSTEM: No focal deficits. LABS: WBC 9.2, hemoglobin 13.2. UA noted. ASSESSMENT: 1. Significant intractable nausea and vomiting, abdominal pain with possible acute gastritis. 2. Possible cyclical vomiting syndrome. 3. Increased WBC. 4. Positive THC. 5. History of gastroesophageal reflux disease. 6. History of degenerative joint disease. 7. History of hernia repair. 8. Anxiety, depression. RECOMMENDATIONS AND DISCUSSION: Recommend to continue current medications, continue symptomatic treatment. Otherwise, continue with diet per GI. Continue with proton pump inhibitors. Symptomatic treatment. Prognosis guarded. Further recommendations to follow. MMODL / IJN: [id number] /
[2019-05-12 21:48] VITALS: BP 140/79; RESP 15
[2019-05-13] MEDS: SODIUM CHLORIDE 0.9% 1,000 ML IV SCH (04:55)
[2019-05-13] MEDS: ONDANSETRON 4 MG/2 ML VIAL IVP PRN (06:24)
[2019-05-13] MEDS: HYDROmorphone 0.5 MG/0.5 ML SYRINGE IVP PRN (06:24)
[2019-05-13 06:30] VITALS: PULSE 66; TEMP 98.1
[2019-05-13] MEDS: ESCITALOPRAM 20 MG TAB PO SCH (07:44)
[2019-05-13] MEDS: PANTOPRAZOLE 40 MG/10 ML VIAL IVP SCH (07:44)
[2019-05-13] MEDS: HEPARIN SODIUM,PORCINE 5,000 UNIT/ML 1 ML VIAL SQ SCH (07:44)
[2019-05-13] MEDS: busPIRone HCl 10 MG TAB PO SCH (07:44)
[2019-05-13 10:08] LABS: Basophils # (A) 0.1 k/uL (0-0.2); Basophils % (A) 1 %; Eosinophils # (A) 0.2 k/uL (0-0.7); Eosinophils % (A) 2 %; HCT 44.6 % (39.0-53.0); HGB 14.2 gm/dL (13.0-17.5); Lymphocytes # (A) 2.5 k/uL (1.0-4.8); Lymphocytes % (A) 30 %; MCH 30.3 pg (25.0-35.0); MCHC 31.8 g/dL (31.0-37.0); MCV 95.4 fL (80.0-100.0); Mean Platelet Volume 6.6; Monocytes # (A) 0.5 k/uL (0-1.0); Monocytes % (A) 6 %; Neutrophils % (A) 59 %; Platelet Count 340 k/uL (150-450); RBC 4.68 m/uL (4.30-5.90); RDW 12.4 % (11.5-15.5); WBC 8.5 k/uL (3.8-10.6)
[2019-05-13 10:24] LABS: African American GFR (CKD) >90 (>60 ml/min/1.73 sqM); Anion Gap 9 mmol/L; Blood Urea Nitrogen 6 mg/dL (9-20); Calcium 8.9 mg/dL (8.4-10.2); Carbon Dioxide 26 mmol/L (22-30); Chloride 108 mmol/L (98-107); Glucose 105 mg/dL (74-99); Non-African American GFR(CKD) >90 (>60 ml/min/1.73 sqM); Potassium 3.8 mmol/L (3.5-5.1); Sodium 143 mmol/L (137-145)
--- NOTE | 2019-05-13 21:59 | DS ---
DISCHARGE SUMMARY FINAL DIAGNOSES: 1. Intractable nausea and vomiting, abdominal pain, possible acute gastritis. 2. Possible cyclical vomiting syndrome. 3. Increased WBC. 4. Positive THC. 5. History of gastroesophageal reflux disease. 6. History of degenerative joint disease. 7. History of hernia repair. 8. Anxiety/depression. DISCHARGED DISPOSITION: Patient will be discharged in stable condition with guarded prognosis. HISTORY OF PRESENT ILLNESS: This 33-year-old gentleman with a past medical history of multiple medical problems, was admitted with intractable nausea and vomiting, possible cyclical vomiting syndrome and acute gastritis, treated symptomatically. Gastroenterology saw the patient. Patient improved significantly. Diet was clear liquids introduced and slowly advanced. On exam: Vitals stable. Cardiovascular S1, S2. Abdomen soft, nontender. Nervous system: No focal deficits. DISCHARGE ADVICE AND MEDICATIONS: 1. Discharge diet is cardiac diet. 2. Activity limited until followup. 3. Follow up with Dr. Clarke in 2 to 3 days. 4. Follow up with Dr. Cuevas as recommended. DISCHARGE MEDICATIONS: 1. Levsin 0.125 mg p.o. b.i.d. p.r.n. 2. Pepcid 40 mg daily p.r.n. 3. Zofran 8 mg daily p.r.n. 4. BuSpar 20 mg p.o. b.i.d. 5. Lexapro 20 mg p.o. daily. 6. Protonix 40 mg p.o. daily. 7. Tylenol p.r.n. 8. Xanax 0.5 p.o. b.i.d. p.r.n. 9. MMODL / RAINAN: [id number] /
== END 2019-05-13 11:04 | disposition home or self-care (01) ==
LOC: EC 12:16 → 4MS4W 15:52
PROVIDERS: ADMIT Internal Medicine; ATTEND Internal Medicine
DX: R10.9 Unspecified abdominal pain (principal); R11.2 Nausea with vomiting, unspecified; D72.829 Elevated white blood cell count, unspecified; F12.90 Cannabis use, unspecified, uncomplicated; K21.9 Gastro-esophageal reflux disease without esophagitis; M19.90 Unspecified osteoarthritis, unspecified site; F41.9 Anxiety disorder, unspecified; F32.9 Major depressive disorder, single episode, unspecified; K58.9 Irritable bowel syndrome, unspecified; K57.90 Diverticulosis of intestine, part unspecified, without perforation or abscess without bleeding; G56.00 Carpal tunnel syndrome, unspecified upper limb; Z87.19 Personal history of other diseases of the digestive system; Z79.899 Other long term (current) drug therapy; Z88.1 Allergy status to other antibiotic agents; Z88.8 Allergy status to other drugs, medicaments and biological substances; Z88.0 Allergy status to penicillin; Z88.2 Allergy status to sulfonamides; Z86.14 Personal history of Methicillin resistant Staphylococcus aureus infection; Z98.890 Other specified postprocedural states
CPT/HCPCS: 96376 ×3; 96361 ×3; 96372 ×2; 96375 ×3; 96374; 99285; 36415; 80053; 80048 ×2; 82150; 83605; 83690; 85025 ×3; 81003; 80306; G0378 ×3; J2270; J1644 ×2; J2765 ×2; J2405 ×3; J1885; C9113 ×3; J1170 ×2; 93005

== ENCOUNTER 2019-07-19 19:47 | Emergency (ER) | payer OTHER ==
[2019-07-19 19:54] VITALS: BP 123/81; PULSE 102; RESP 22; TEMP 100.4
[2019-07-19] MEDS ORDERED: SODIUM CHLORIDE 0.9% 1,000 ML IV STA (20:18)
[2019-07-19] MEDS ORDERED: cefTRIAXone 1,000 MG VIAL (IM USE) IM STA (20:21)
[2019-07-19] MEDS ORDERED: AZITHROMYCIN 500 MG TAB PO STA (20:22)
[2019-07-19] MEDS ORDERED: ONDANSETRON 4 MG/2 ML VIAL IVP STA (20:38)
[2019-07-19] MEDS ORDERED: ACETAMINOPHEN TAB 325 MG TAB PO STA (20:38)
--- NOTE | 2019-07-19 20:42 | XR ---
EXAMINATION TYPE: XR chest 2V DATE OF EXAM: 07/19/2019 COMPARISON: 03/06/2019 HISTORY: Syncope TECHNIQUE: 2 views FINDINGS: Heart and mediastinum are normal. Lungs are clear. Diaphragm is normal. Bony thorax appears normal. IMPRESSION: Normal chest. No change.
[2019-07-19 20:56] LABS: ALT 16 U/L (4-49); AST 31 U/L (17-59); African American GFR (CKD) >90 (>60 ml/min/1.73 sqM); Albumin 4.7 g/dL (3.5-5.0); Alkaline Phosphatase 93 U/L (38-126); Anion Gap 10 mmol/L; Blood Urea Nitrogen 10 mg/dL (9-20); Calcium 9.8 mg/dL (8.4-10.2); Carbon Dioxide 19 mmol/L (22-30); Chloride 107 mmol/L (98-107); Glucose 103 mg/dL (74-99); Non-African American GFR(CKD) >90 (>60 ml/min/1.73 sqM); Potassium 3.9 mmol/L (3.5-5.1); Sodium 136 mmol/L (137-145); Total Bilirubin 0.5 mg/dL (0.2-1.3); Total Protein 7.8 g/dL (6.3-8.2)
[2019-07-19 21:04] LABS: HCT 51.1 % (39.0-53.0); HGB 16.7 gm/dL (13.0-17.5); MCH 29.6 pg (25.0-35.0); MCHC 32.7 g/dL (31.0-37.0); MCV 90.4 fL (80.0-100.0); Mean Platelet Volume 7.4; Platelet Count 248 k/uL (150-450); RBC 5.65 m/uL (4.30-5.90); RDW 12.3 % (11.5-15.5)
--- NOTE | 2019-07-19 21:25 | US ---
EXAMINATION TYPE: US scrotum with doppler. Grayscale and color Doppler Duplex imaging performed of wyatt howard scrotum. DATE OF EXAM: 07/19/2019 COMPARISON: NONE CLINICAL HISTORY: scrotal pain. pain bilaterally, worse on the right EXAM MEASUREMENTS: TESTICLES: Right Testicle: 3.9 x 1.9 x 3.6 cm Left Testicle: 3.7 x 1.7 x 3.1 cm EPIDIDYMIS HEAD: Right Epididymis: 1.3 cm Left Epididymis: 1.0 cm Doppler performed to assess for testicular vascularity; good bilateral color flow and waveforms are s een. There is no evidence of testicular torsion. Presence of hydroceles: no Presence of varicoceles: prominent vascularity posterior to right testicle and lateral to left testi raghavendra IMPRESSION: No testicular torsion or mass. No sign of epididymitis. No free fluid.
[2019-07-19 21:31] LABS: Lymphocytes # (M) 1.12 k/uL (1.0-4.8); Monocytes # (M) 1.05 k/uL (0-1.0); Neutrophils # (M) 4.83 k/uL (1.3-7.7); Neutrophils % (M) 69 %; Nucleated Red Blood Cells 0 /100 WBC (0-0); Total Cells Counted 100
--- NOTE | 2019-07-19 22:54 | ED ---
General Adult HPI - General Chief complaint: Upper Respiratory Infection Stated complaint: Upper Resp, Trouble Urinating Time Seen by Provider: 07/19/19 19:57 Source: patient, RN notes reviewed, old records reviewed Mode of arrival: ambulatory Limitations: no limitations - History of Present Illness Initial comments: 33-year-old male patient no pertinent past history presents ED for chief complaint of cough, fever congestion, testicular pain, suprapubic abdominal pain for the last 4 days. Reports fevers and chills. Denies any other complaints. Systemic: Pt denies fatigue, rash. Pt denies weakness, night sweats, weight loss. Neuro: Pt denies headache, visual disturbances, syncope or pre-syncope. HEENT: Pt denies ocular discharge or irritation, otalgia, rhinorrhea, pharyngitis or notable lymphadenopathy. Cardiopulmonary: Pt denies chest pain, SOB, heart palpitations, dyspnea on exertion. Abdominal/GI: Pt denies n/v/d. : Pt denies dysuria, burning w/ urination, frequency/urgency. Denies new onset urinary or bowel incontinence. MSK: Pt denies myalgia, loss of strength or function in extremities. Neuro: Pt denies new onset weakness, paresthesias. - Related Data Home Medications Medication Instructions Recorded Confirmed Ondansetron HCl [Zofran] 8 mg PO DAILY PRN 04/09/18 05/11/19 Famotidine [Pepcid] 40 mg PO DAILY PRN 05/11/19 05/11/19 Hyoscyamine Sulfate [Levsin] 0.125 mg PO BID PRN 05/11/19 05/11/19 Previous Rx's Medication Instructions Recorded ALPRAZolam [Xanax] 0.5 mg PO BID PRN #10 tab 03/13/19 Escitalopram [Lexapro] 20 mg PO DAILY 30 Days #30 tab 03/13/19 busPIRone HCl [Buspar] 20 mg PO BID 30 Days #60 tab 03/13/19 Acetaminophen Tab [Tylenol] 500 mg PO Q6HR PRN tab 05/13/19 Pantoprazole Sodium [Protonix] 40 mg PO DAILY #30 tablet. 05/13/19 Allergies Allergy/AdvReac Type Severity Reaction Status Date / Time amoxicillin [From Augmentin] Allergy Unknown Verified 07/19/19 19:53 carbinoxamine maleate Allergy Rash/Hives Verified 07/19/19 19:53 [From Rondec] clavulanic acid Allergy Unknown Verified 07/19/19 19:53 [From Augmentin] pseudoephedrine HCl Allergy Rash/Hives Verified 07/19/19 19:53 [From Rondec] sulfamethoxazole Allergy Vomiting Verified 07/19/19 19:53 [From Bactrim] trimethoprim [From Bactrim] Allergy Vomiting Verified 07/19/19 19:53 prochlorperazine AdvReac Unknown Verified 07/19/19 19:53 [From Compazine] Review of Systems ROS Statement: Those systems with pertinent positive or pertinent negative responses have been documented in the HPI. ROS Other: All systems not noted in ROS Statement are negative. Past Medical History Past Medical History: GERD/Reflux, Musculoskeletal Disorder Additional Past Medical History / Comment(s): LT KNEE GIVES OUT AT TIMES- NO SPECIFIC INJURY carpel tunnel and ibs , colitis, diverticulosis History of Any Multi-Drug Resistant Organisms: MRSA Date of last positivie culture/infection: 2016 MDRO Source:: abdomen Past Surgical History: Hernia Repair, Orthopedic Surgery Additional Past Surgical History / Comment(s): colonscopy pilonODIal cyst, ibs Past Anesthesia/Blood Transfusion Reactions: No Reported Reaction Additional Past Anesthesia/Blood Transfusion Reaction / Comment(s): PT HAS NEVER HAD SURGERY Past Psychological History: Anxiety, Depression Smoking Status: Never smoker Past Alcohol Use History: None Reported Past Drug Use History: Marijuana - Past Family History Mother Family Medical History: Cancer Additional Family Medical History / Comment(s): BREAST,CERVICAL & COLON CA Father Family Medical History: Hypertension Additional Family Medical History / Comment(s): HYDROCEPHALIS,SEIZURE DISORDER, ADRENOLEUKODYSTROPHY General Exam - General Exam Comments Initial Comments: Constitutional: NAD, AOX3, Pt has pleasant affect. HEENT: NC/AT, trachea midline, neck supple, no lymphadenopathy. Posterior pharynx non erythematous, without exudates. External ears appear normal, without discharge. Mucous membranes moist. Eyes PERRLA, EOM intact. There is no scleral icterus. No pallor noted. Cardiopulmonary: RRR, no murmurs, rubs or gallops, no JVD noted. Lungs CTAB in anterior and posterior dunlap. No peripheral edema. Abdominal exam: Abdomen soft and non-distended. Abdomen mildly tender to palpation suprapubic, right lower quadrant region. Bowel sounds active in LLQ. No hepatosplenomegaly. No ecchymosis Neuro: CN II-XII grossly intact. No nuchal rigidity. No raccon eyes, no head sign, no hemotympanum. No cervical spinal tenderness. MSK: No posterior calf tenderness bilaterally, homans sign negative bilaterally. Posterior tibialis and radial pulse +2 bilaterally. Sensation intact in upper and lower extremities. Full active ROM in upper and lower extremities, 5/5 stregnth. : Right testicle mildly tender to palpation. No blue dot sign, no scrotal mass, cremasteric reflex intact. Limitations: no limitations Course Vital Signs 07/19/19 19:51 Temperature 100.4 F H Pulse Rate 102 H Respiratory 22 Rate Blood Pressure 123/81 O2 Sat by Pulse 99 Oximetry Medical Decision Making - Medical Decision Making 33-year-old male patient no pertinent past history presents ED for chief complaint of cough, fever congestion, testicular pain, suprapubic abdominal pain for the last 4 days. Reports fevers and chills. Denies any other complaints. Patient also displayed mild fever, patient administered antipyretic. Physical exam displayed: Abdomen soft and non-distended. Abdomen mildly tender to palpation suprapubic, right lower quadrant region. Investigations revealed lactic acidosis at 2.7. Influenza B is positive. Scrotal ultrasound is negative. Possible varicocele explained this to patient he should follow-up with urologist. This x-ray negative. Prior to completion of workup patient requested to be discharged AGAINST MEDICAL ADVICE. Patient was initiated on azithromycin and ceftriaxone as patient does report that he had some concern for STD. Did not provide urine. Risks of discharge discussed including . Patient verbalized understanding. Recommended patient drink lots of fluids. Reports that he'll come back if things worsen. Case discussed with Dr. Mills. - Lab Data Result diagrams: 07/19/19 20:27 07/19/19 20:27 Lab Results 07/19/19 07/19/19 07/19/19 Range/Units 19:54 20:27 20:27 WBC 7.0 (3.8-10.6) k/uL RBC 5.65 (4.30-5.90) m/uL Hgb 16.7 (13.0-17.5) gm/dL Hct 51.1 (39.0-53.0) % MCV 90.4 (80.0-100.0) fL MCH 29.6 (25.0-35.0) pg MCHC 32.7 (31.0-37.0) g/dL RDW 12.3 (11.5-15.5) % Plt Count 248 (150-450) k/uL Neutrophils % (Manual) 69 % Lymphocytes % (Manual) 16 % Monocytes % (Manual) 15 % Neutrophils # (Manual) 4.83 (1.3-7.7) k/uL Lymphocytes # (Manual) 1.12 (1.0-4.8) k/uL Monocytes # (Manual) 1.05 H (0-1.0) k/uL Nucleated RBCs 0 (0-0) /100 WBC Manual Slide Review Performed RBC Morphology Normal Sodium 136 L (137-145) mmol/L Potassium 3.9 (3.5-5.1) mmol/L Chloride 107 (98-107) mmol/L Carbon Dioxide 19 L (22-30) mmol/L Anion Gap 10 mmol/L BUN 10 (9-20) mg/dL Creatinine 0.99 (0.66-1.25) mg/dL Est GFR (CKD-EPI)AfAm >90 (>60 ml/min/1.73 sqM) Est GFR (CKD-EPI)NonAf >90 (>60 ml/min/1.73 sqM) Glucose 103 H (74-99) mg/dL Plasma Lactic Acid Carlos (0.7-2.0) mmol/L Calcium 9.8 (8.4-10.2) mg/dL Total Bilirubin 0.5 (0.2-1.3) mg/dL AST 31 (17-59) U/L ALT 16 (4-49) U/L Alkaline Phosphatase 93 (38-126) U/L Total Protein 7.8 (6.3-8.2) g/dL Albumin 4.7 (3.5-5.0) g/dL Lipase 158 (23-300) U/L Influenza Type A RNA Not Detected (Not Detectd) Influenza Type B (PCR) Detected H (Not Detectd) 07/19/19 Range/Units 20:27 WBC (3.8-10.6) k/uL RBC (4.30-5.90) m/uL Hgb (13.0-17.5) gm/dL Hct (39.0-53.0) % MCV (80.0-100.0) fL MCH (25.0-35.0) pg MCHC (31.0-37.0) g/dL RDW (11.5-15.5) % Plt Count (150-450) k/uL Neutrophils % (Manual) % Lymphocytes % (Manual) % Monocytes % (Manual) % Neutrophils # (Manual) (1.3-7.7) k/uL Lymphocytes # (Manual) (1.0-4.8) k/uL Monocytes # (Manual) (0-1.0) k/uL Nucleated RBCs (0-0) /100 WBC Manual Slide Review RBC Morphology Sodium (137-145) mmol/L Potassium (3.5-5.1) mmol/L Chloride (98-107) mmol/L Carbon Dioxide (22-30) mmol/L Anion Gap mmol/L BUN (9-20) mg/dL Creatinine (0.66-1.25) mg/dL Est GFR (CKD-EPI)AfAm (>60 ml/min/1.73 sqM) Est GFR (CKD-EPI)NonAf (>60 ml/min/1.73 sqM) Glucose (74-99) mg/dL Plasma Lactic Acid Carlos 2.7 H* (0.7-2.0) mmol/L Calcium (8.4-10.2) mg/dL Total Bilirubin (0.2-1.3) mg/dL AST (17-59) U/L ALT (4-49) U/L Alkaline Phosphatase (38-126) U/L Total Protein (6.3-8.2) g/dL Albumin (3.5-5.0) g/dL Lipase (23-300) U/L Influenza Type A RNA (Not Detectd) Influenza Type B (PCR) (Not Detectd) Disposition Clinical Impression: Influenza, Abdominal pain, Testicular pain Disposition: Left Against Medical Advice Condition: Undetermined Is patient prescribed a controlled substance at d/c from ED?: No Referrals: Pao Clarke MD [Primary Care Provider] - 1-2 days
== END 2019-07-19 21:31 | disposition left against medical advice (07) ==
LOC: EC 19:47
DX: J10.1 Influenza due to other identified influenza virus with other respiratory manifestations (principal); N50.819 Testicular pain, unspecified; R10.30 Lower abdominal pain, unspecified; E87.2 Acidosis; K21.9 Gastro-esophageal reflux disease without esophagitis; Z88.0 Allergy status to penicillin; Z88.2 Allergy status to sulfonamides; Z88.8 Allergy status to other drugs, medicaments and biological substances; Z86.14 Personal history of Methicillin resistant Staphylococcus aureus infection; Z79.899 Other long term (current) drug therapy; Z87.19 Personal history of other diseases of the digestive system; Z98.890 Other specified postprocedural states; Z80.0 Family history of malignant neoplasm of digestive organs; Z53.20 Procedure and treatment not carried out because of patient's decision for unspecified reasons
CPT/HCPCS: 99284; 96374; 96361; 96372; 36415; 80053; 83605; 83690; 85025; 87502; 71046; 93975; 76870; J2405; J0696